=== PATIENT | male | born 1955 | race Caucasian/White ===

== ENCOUNTER 2020-01-26 20:31 | Emergency (ER) | payer MEDICARE, SELFPAY ==
[2020-01-26 20:33] VITALS: BP 157/89; PULSE 87; RESP 20; TEMP 36.7; O2SAT 98; BMI 38.8
[2020-01-26 20:44] VITALS: BP 157/89; PULSE 87; RESP 20; TEMP 36.7; O2SAT 98; BMI 38.9
--- NOTE | 2020-01-26 20:47 | XR_ITS ---
PROCEDURE: XR FOOT LT MIN 3V CLINICAL INDICATION: pain COMPARISON: CR XR ANKLE LT 2V from 01/26/2020 FINDINGS: No fracture or dislocation. No lytic or blastic change. There is normal mineralization. There are mild osteoarthritic changes at the 1st metatarsophalangeal joint Other findings:None. 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
--- NOTE | 2020-01-26 20:47 | XR_ITS ---
PROCEDURE: XR ANKLE LT 2V CLINICAL INDICATION: pain COMPARISON: No exams were available for comparison FINDINGS: Minimal osteoarthritic changes of the ankle joint with minimal spurring of the distal tibia the. The joint space is preserved. Unremarkable appearing talar dome. IMPRESSION: Minimal osteoarthritic change Dictated by: Sameer Farmer MD 01/27/2020 05:28 Sameer Farmer MD in [place] 01/27/2020 05:28
--- NOTE | 2020-01-26 21:15 | HMH.EDUTC ---
[facility] [place] Clinical Impression: Left ankle sprain Qualifiers: Encounter type: initial encounter Involved ligament of ankle: other ligament Qualified Code(s): S93.492A - Sprain of other ligament of left ankle, initial encounter Disposition: Home, Self-Care Condition on Discharge: Good Instructions: How to Use Crutches, DI for Ankle Sprain, How To Perform RICE (Rest, Ice, Compress, Elevate) Additional Instructions: *weight bearing as tolerated use Crutches/walker for ambulation *RICE, Rest the extremity, Ice 15-20 minutes 3-4 times daily, Compress- wear the roberto wrap as discussed as much as possible to help reduce swelling and pain, Elevate the extremity when at rest *Roberto wrap is for support and help control swelling, use it except in the shower. Be sure that is not to tight but not to loose either *Elevate when resting *Ibuprofen every 6-8 hours as needed for pain an inflammation. If need something more can take Tylenol in between doses of Ibuprofen to help Return if needed Straight to ER if any life threatening symptoms Follow up with Family Doctor if no improvement or any worsening of symptoms and for further evaluation and testing Follow up with Dr Loera if no improvement or any worsening of symptoms Call back to the [facility] tomorrow morning for the official reading of your xray Prescriptions: Walker [Walker, Standard] 1 each MISCELLANE DIRECTED #1 each Prescription Printed Referrals: Shaheen Rangel MD [Primary Care Provider] - As needed Delma Loera DPM [Staff Physician] - As needed (Call office for appointment) Time of Disposition: 21:49 Medical Decision Making - Daniel Inquiry Pt receiving controlled substance: No Daniel was queried for this patient: No Vital Signs: 01/26/20 20:33 01/26/20 20:44 Temperature 98.1 F 98.1 F Temperature Source Oral Oral Pulse Rate [Right Radial] 87 87 Respiratory Rate 20 20 Blood Pressure [Right Arm] 157/89 H 157/89 H Blood Pressure Mean [Right Arm] 111 111 Blood Pressure Source [Right Arm] Automatic Cuff Automatic Cuff Blood Pressure Position [Right Arm] Sitting Sitting 02 Sat by Pulse Oximetry 98 98 Oxygen Delivery Method Room Air Room Air - Lab Data Lab results reviewed: Yes: I reviewed the patient's lab results. Lab Results 01/26/20 21:08: Uric Acid 1.9 L Orders (Tests/Meds): ORDERS Category Date Time Status Foot XR left minimum 3 views [XR foot LT min 3V] Stat Exams 01/26/20 20:47 Taken XR ankle LT 2V Stat Exams 01/26/20 20:47 Taken - Radiology Data #1 Image(s): Foot/Toes Image Reviewed: Yes I reviewed the patient's radiology image Preliminary Findings: No Fracture Seen #2 Image(s): Ankle Image Reviewed: Yes I reviewed the patient's radiology image Preliminary Findings: No Fracture Seen [facility] [place] HPI - General Stated complaint: L foot swollen,pain Time Seen by Provider: 01/26/20 21:15 Mode of Arrival: Wheelchair Source of Information: Patient Limitations: No Limitations Description of Symptoms (Recalled from Triage Doc. by RN): Pt reports pain in left foot starting yesterday morning. He rates it an 8 out of 10 and decribes it as throbbing. No obvious deformity and pt denies injury stating he woke up and it was hurting . Pt is agreeable to be see in [facility]. HEENT Symptoms (Recalled from RN notes): No Resp Symptoms (Recalled from RN notes): No Skin Symptoms (Recalled from RN notes): No MS Symptoms (Recalled from RN notes): Yes Functional Status (Recalled from RN notes): wnl - History of Present Illness Provider Complaint: Patient states that he started yesterday and has continued to get worse States that he woke up today was having pain when he would walk and was swollen when he walks pain will shoot across the top of his foot into his ankle area and thinks he may have twisted it this evening it was hurting worse so he came in to get it checked - Related Data Previous Rx's Medication Instructions Recorded Albuterol Sulfat
[2020-01-26 21:25] LABS: Uric Acid 1.9 mg/dl (3.5-8.5)
[2020-01-26 21:55] VITALS: BP 157/89; PULSE 87; RESP 20; TEMP 36.7; O2SAT 98
== END 2020-01-26 21:56 | disposition home or self-care (01) ==
LOC: ER 20:41 → UTC 20:42
PROVIDERS: Emergency Provider Nurse Practitioner; PCP Emergency Medicine
DX: S93.492A Sprain of other ligament of left ankle, initial encounter (principal); F17.210 Nicotine dependence, cigarettes, uncomplicated
CPT/HCPCS: G0463; 73600; 73630; 84550; 99202

== ENCOUNTER 2020-03-13 19:54 | Emergency (ER) | payer MEDICARE, SELFPAY ==
[2020-03-13 20:00] VITALS: BP 154/80; PULSE 75; RESP 21; TEMP 36.7; O2SAT 99; BMI 29.5
[2020-03-13 20:29] VITALS: BP 154/80; PULSE 75; RESP 19; TEMP 36.8; O2SAT 99; BMI 28.7
[2020-03-13 20:32] VITALS: BP 154/80; PULSE 75; RESP 19; TEMP 36.8; O2SAT 99; BMI 28.7
[2020-03-13 20:38] VITALS: BP 154/80; PULSE 75; RESP 19; TEMP 36.8; O2SAT 99
--- NOTE | 2020-03-13 20:53 | HMH.EDUTC ---
[facility] [place] Disposition Clinical Impression: Cellulitis Qualifiers: Site of cellulitis: extremity Site of cellulitis of extremity: lower extremity Laterality: left Qualified Code(s): L03.116 - Cellulitis of left lower limb Disposition: Home, Self-Care Condition on Discharge: Good Instructions: How to Choose and Use a Walker, DI for Foot Pain Additional Instructions: *Start antibiotic(s) immediately and be sure to take as ordered for the FULL length of time although you may be feeling better or start to see improvement in the next 24-48 hours *Monitor closely. Outlined redness so that you can monitor easier. Follow up immediately for new or worsening symptoms including but not limited to redness, swelling, streaking from site fever or chills. *Warm compress 15 minutes 3-4 times day Watch for worsening of redness and follow up immediately if no improvement *Monitor Temp. Tylenol every 4 hours as needed and ibuprofen every 6 hours as needed (as long as your primary care doctor has told you that it is ok to take both. For fever, aches, pain. ER if no less that 101 despite Tylenol and ibuprofen Follow up with your family doctor/primary care physician in the next 48-72 hours if no improvement Call tomorrow and make appointment Follow up with Dr Loera in [facility]ry [facility] for further evaluation and treatment Return if needed STAY OFF FOOT, elevate when at rest Your uric acid level was low make sure that you follow up with your family doctor for complete blood work and further treatment Prescriptions: clindamycin HCL [Clindamycin HCl] 300 mg PO TID 7 Days #21 cap Transmission Status: Pending to [id number] Walker [Walker, Standard] 1 each MISCELLANE DIRECTED #1 each Prescription Printed Referrals: Azael Stevenson MD [Primary Care Provider] - As needed Delma Loera DPM [Staff Physician] - Time of Disposition: 21:57 Medical Decision Making - Daniel Inquiry Pt receiving controlled substance: No Daniel was queried for this patient: No Vital Signs: 03/13/20 20:00 03/13/20 20:29 03/13/20 20:32 Temperature 98.1 F 98.2 F 98.2 F Temperature Source Oral Oral Oral Pulse Rate Pulse Rate [Right Brachial] 75 75 75 Respiratory Rate 21 19 19 Blood Pressure Blood Pressure [Right Arm] 154/80 H 154/80 H 154/80 H Blood Pressure Mean [Right Arm] 104 104 104 Blood Pressure Source [Right Arm] Automatic Cuff Manual Cuff/ Doppler Automatic Cuff Blood Pressure Position [Right Arm] Sitting Sitting Sitting 02 Sat by Pulse Oximetry 99 99 99 Oxygen Delivery Method Room Air Room Air 03/13/20 20:38 Temperature 98.2 F Temperature Source Pulse Rate 75 Pulse Rate [Right Brachial] Respiratory Rate 19 Blood Pressure 154/80 H Blood Pressure [Right Arm] Blood Pressure Mean [Right Arm] Blood Pressure Source [Right Arm] Blood Pressure Position [Right Arm] 02 Sat by Pulse Oximetry Oxygen Delivery Method - Lab Data Lab Results 03/13/20 21:10: Uric Acid 2.2 L Medical Decision Narrative: Patient denies new injury States that he was given prescription for walker and has been unable to walk on crutches but threw his prescription for his walker away so he has still been walking on it and still has not followed up with his PCP or Dr Loera as was advised State that now he thinks it may be infected Foot soaked and cleaned with hibacleanse open lesions noted however noted that toenail on left great toe appears like nail is cracked and patient reports broke nail about a month and a half ago Denies known injury reports history of diabetes. [facility] [place] HPI - General Stated complaint: kNOT ON LEFT FOOT Time Seen by Provider: 03/13/20 20:53 Mode of Arrival: Ambulatory Source of Information: Patient Limitations: No Limitations Description of Symptoms (Recalled from Triage Doc. by RN): Knot on foot. through out his prescription for his walker HEENT Symptoms (Recalled from RN notes): No Resp Symptoms (Recalled from RN notes): No Sk
[2020-03-13 21:49] LABS: Uric Acid 2.2 mg/dl (3.5-8.5)
== END 2020-03-13 20:55 | disposition home or self-care (01) ==
PROVIDERS: Emergency Provider Nurse Practitioner; PCP Family Medicine
DX: L03.116 Cellulitis of left lower limb (principal)
CPT/HCPCS: G0463; 84550; 99201

== ENCOUNTER 2020-09-04 16:34 | Emergency (ER) | payer MEDICARE, SELFPAY ==
[2020-09-04 16:35] VITALS: BP 157/73; PULSE 87; RESP 16; TEMP 36.6; O2SAT 98; BMI 31.3
--- NOTE | 2020-09-04 16:57 | HMH.EDGENADL ---
ED Disposition Clinical Impression: Otitis externa Qualifiers: Otitis externa type: unspecified type Chronicity: acute Laterality: left Qualified Code(s): H60.502 - Unspecified acute noninfective otitis externa, left ear Disposition: Home, Self-Care Condition on Discharge: Fair Instructions: DI for Otitis Externa Additional Instructions: You have been evaluated for ear infection, diagnosed with otitis externa. Use Cipro drops and take Cipro oral tablets. Follow-up with your primary care doctor for symptom recheck in the next 2 to 3 days. Return to the emergency department at once if you have any new or worsening symptoms, fevers, chills, nausea, vomiting, headache, neck pain. Prescriptions: Ciprofloxacin HCl [Ciprofloxacin 250mg Tab] 500 mg PO BID 7 Days #28 tab Transmission Status: Received by [facility] Ciprofloxacin HCl 3 drp OP BID 7 Days #10 ml Transmission Status: Received by [id number] Referrals: Azael Stevenson MD [Primary Care Provider] - Time of Disposition: 17:02 - Critical Care Critical Care Time: No Attestation: On 09/04/20, the high probability of a clinically significant, sudden or life threatening deterioration of the following system(s) required my full and direct attention, intervention and personal management. The time I documented below is in addition to time spent performing reported procedures but includes the following listed in this critical care notation. Medical Decision Making - Medical Records Medical records reviewed: Yes: I reviewed the patient's medical records. - Daniel Inquiry Pt receiving controlled substance: No Vital Signs: 09/04/20 16:35 09/04/20 17:43 Temperature 98 F 98 F Temperature Source Oral Pulse Rate 86 Pulse Rate [Radial] 87 Respiratory Rate 16 18 Blood Pressure 143/64 H Blood Pressure [Right Radial Artery] 157/73 H Blood Pressure Mean [Right Radial Artery] 101 Blood Pressure Position Sitting Blood Pressure Position [Right Radial Artery] Sitting 02 Sat by Pulse Oximetry 98 Oxygen Delivery Method Room Air Room Air Medical Decision Narrative: In summary this is a 65-year-old male with history of diabetes presenting to the emergency department with left ear pain. Patient clinically stable on arrival. Vital signs within normal limits. Physical exam is most concerning for otitis externa. Doubt otitis media. No mastoid tenderness to suggest mastoiditis. No headache or neck pain to suggest meningitis. Patient given ciprofloxacin drops. He also is diabetic. Given prescription for oral ciprofloxacin. Recommended to take as prescribed and follow-up with his primary care physician. He is agreeable with plan. Stable for discharge. General Adult HPI - General Stated complaint: Left ear is infected Time Seen by Provider: 09/04/20 16:47 Mode of Arrival: Ambulatory Source of Information: Patient Limitations: No Limitations - History of Present Illness HPI narrative: 65-year-old male presenting to the emergency department left ear pain. He has had pain for at least 1 week. Initially was dull, throbbing. Now it is more sharp, burning. He has tried cleaning out his ears. Thought he had cerumen impacted. Over the last few days he has noticed worsening discomfort. Radiates inward toward his ear and into his jaw. No headache, neck pain, pain with neck motion. No recent antibiotic use. No recent swimming or submersion activities. He is a diabetic. Controlled medication. - Related Data Previous Rx's Medication Instructions Recorded Albuterol Sulfate [Albuterol HFA 1 - 2 puffs IH Q4-6H PRN #1 inh 04/26/19 Inhaler] Azithromycin [Z-Ladarius 250mg Tab*] 250 mg PO UD DOSE PK #6 tab 04/26/19 Fluticasone Propionate [Flonase 1 spr NS DAILY #1 bottle 04/26/19 50mcg nasal spray 16gm] Walker [Walker, Standard] 1 each MISCELLANE DIRECTED #1 01/26/20 each Walker [Walker, Standard] 1 each MISCELLANE DIRECTED #1 03/13
[2020-09-04 17:43] VITALS: BP 143/64; PULSE 86; RESP 18; TEMP 36.6; O2SAT 96
== END 2020-09-04 17:44 | disposition home or self-care (01) ==
PROVIDERS: Emergency Provider Emergency Medicine; PCP Family Medicine
DX: H60.502 Unspecified acute noninfective otitis externa, left ear (principal); E11.9 Type 2 diabetes mellitus without complications; Z88.0 Allergy status to penicillin
CPT/HCPCS: 99281

== ENCOUNTER 2023-03-13 15:30 | Emergency (ER) | payer MEDICARE, SELFPAY ==
[2023-03-13 16:10] VITALS: BP 140/77; PULSE 89; RESP 18; TEMP 37.1; O2SAT 97; BMI 43.3
--- NOTE | 2023-03-13 16:17 | EXP.UTC ---
Discharge Plan Disposition Patient Disposition: Home, Self-Care Condition: Fair Prescriptions Prescriptions: No Action (DME) Walker [Walker, Standard] 1 EACH Each 1 each MISCELLANE DIRECTED Qty: 1 0RF albuterol sulfate 18 GM HFA aerosol inhaler 1 - 2 puffs IH Q4-6H PRN (Reason: Shortness Of Breath Or Wheezing) Qty: 1 0RF fluticasone propionate 120 SPR/BOT bottle 1 spr NS DAILY Qty: 1 0RF (DME) Walker [Walker, Standard] 1 EACH Each 1 each MISCELLANE DIRECTED Qty: 1 0RF Referrals Follow up/Referrals: Elia Cho DO [Primary Care Provider] - See instructions Clinical Impressions Clinical Impression: Closed head injury, Head pain Discharge ED Provider: Stefani Macedo [facility] General Stated complaint: AO12/05 dizzy, VALENTINE Time Seen by Provider: 03/13/23 16:16 History of Present Illness Provider Complaint: He states that 2 days ago he fell here at the hospital and hit the back of his head on the floor. He states that he fell because he is always unsteady on his feet and he falls because of it at times. He denies that he had any loss of consciousness after the fall, but he did have a period of dizziness and disorientation. He did not tell anyone when he fell. But, since then, he has had dizziness and headache. Related Data Previous Rx's Medication Instructions Recorded albuterol sulfate 90 mcg/actuation 1 - 2 puffs IH Q4-6H PRN Shortness 04/26/19 aerosol inhaler Of Breath Or Wheezing #1 inh fluticasone propionate 50 1 spr NS DAILY ##1 04/26/19 mcg/actuation nasal spray,suspension Walker [Walker, Standard] #1 ea 01/26/20 Walker [Walker, Standard] #1 ea 03/13/20 Allergies Allergy/AdvReac Type Severity Reaction Status Date / Time Penicillins [PENICILLINS] Allergy Unknown Verified 03/13/23 16:32 [facility] Disclaimer: The information contained in this section may have been updated after the patient was seen, as this information can be updated by other users. Social History Smoking Status: Never smoker second hand exposure: No alcohol intake: never current occupational status: other Travel in the last 8 weeks: None ROS Obtained: Yes All systems reviewed & no additional complaints except as documented Constitutional Constitutional: Denies chills, Denies fever(s) and Reports headache(s) Eyes Eyes: Denies eye discharge and Denies loss of vision ENT Ears, Nose, Mouth, and Throat: Reports disequilibrium, Reports dizziness, Denies otalgia, Reports headache(s), Denies neck pain and Denies sore throat Cardiovascular Cardiovascular: Denies chest pain Respiratory Respiratory: Denies shortness of breath, Denies chest congestion, Denies cough, Denies stridor and Denies wheezing Gastrointestinal Gastrointestingal: Denies nausea or vomiting Musculoskeletal Musculoskeletal: Denies neck pain Integumentary/Breasts Skin/Breast: Denies rash Neurologic Neurologic: Denies confusion, Reports disequilibrium, Reports dizziness, Reports headache(s), Denies loss of vision and Denies paresthesias Allergic/Immunologic Allergic/Immunologic: Denies wheezing Physical Exam General General appearance: alert and in no apparent distress Head Head exam: atraumatic, normocephalic and normal inspection Eye Eye exam: Present normal appearance, PERRL and EOMI ENT ENT exam: Present normal exam, normal oropharynx, mucous membranes moist, TM's normal bilaterally and normal external ear exam Neck Neck exam: Present normal inspection, full ROM and trachea midline; Absent meningismus or lymphadenopathy Chest Chest inspection: Present normal inspection and symmetric chest wall rise; Absent tenderness Respiratory Respiratory exam: Present normal lung sounds bilaterally; Absent respiratory distress Cardiovascular Cardiovascular exam: Present regular rate and normal rhythm; Absent JVD Abdominal Exam Abdominal exam: Present soft and normal bowel sounds; Abse
[2023-03-13 16:39] VITALS: BP 170/89; PULSE 87; RESP 18; TEMP 36.5; O2SAT 95; BMI 43.3
--- NOTE | 2023-03-13 16:56 | CT_ITS ---
PROCEDURE INFORMATION: Exam: CT Head Without Contrast Exam date and time: 03/13/2023 5:06 PM Age: 67 years old Clinical indication: Injury or trauma; Fall; Blunt trauma (contusions or hematomas); Consciousness not specified; Additional info: Fall head injury TECHNIQUE: Imaging protocol: Computed tomography of the head without contrast. Radiation optimization: All CT scans at this facility use at least one of these dose optimization techniques: automated exposure control; mA and/or kV adjustment per patient size (includes targeted exams where dose is matched to clinical indication); or iterative reconstruction. REPORTING DATA: Count of CT and Cardiac NM exams in prior 12 months: This patient has received 0 known CTs and 0 known cardiac nuclear medicine studies in the 12 months prior to the current study. COMPARISON: No relevant prior studies available. FINDINGS: Brain: No intracranial hemorrhage. Generalized atrophic changes of the ventricles and subarachnoid spaces. Chronic small-vessel ischemic changes noted. No mass, mass effect or midline shift. Intracranial atherosclerotic changes are noted. Cerebral ventricles: See Brain finding. Paranasal sinuses: Visualized sinuses are unremarkable. No fluid levels. Mastoid air cells: Visualized mastoid air cells are well aerated. Bones/joints: Unremarkable. No acute fracture. Soft tissues: Unremarkable. IMPRESSION: No acute intracranial abnormality. Chronic changes as above.
--- NOTE | 2023-03-13 16:57 | HMH.EDGENADL ---
Discharge Plan Disposition Patient Disposition: Home, Self-Care Condition: Fair Prescriptions Prescriptions: No Action (DME) Walker [Walker, Standard] 1 EACH Each 1 each MISCELLANE DIRECTED Qty: 1 0RF albuterol sulfate 18 GM HFA aerosol inhaler 1 - 2 puffs IH Q4-6H PRN (Reason: Shortness Of Breath Or Wheezing) Qty: 1 0RF fluticasone propionate 120 SPR/BOT bottle 1 spr NS DAILY Qty: 1 0RF (DME) Walker [Walker, Standard] 1 EACH Each 1 each MISCELLANE DIRECTED Qty: 1 0RF Referrals Follow up/Referrals: Elia Cho DO [Primary Care Provider] - See instructions Activity Restrictions/Add. Instructions Additional Instructions/Restrictions: No evidence of an intracranial hemorrhage or other abnormality on your CT scan today. You likely have had a mild concussion and you need to expect some headaches nausea difficulty concentrating possibly some amnesia for the neck several days and this could last several weeks to months as well. Follow-up with primary care doctor as needed Clinical Impressions Clinical Impression: Concussion Discharge ED Provider: Stefani Macedo General Adult HPI General Chief complaint: Fall Stated complaint: AO12/05 dizzy, VALENTINE Time Seen by Provider: 03/13/23 16:16 Mode of Arrival: Wheelchair Source of Information: Patient and Medical Record Limitations: No Limitations Description of Symptoms (Recalled from ER Triage Doc. by RN): Pt c/o constant headache since he fell 2 days ago. States he was exiting from here and tripped and fell inbetween the glass doors from the ER lobby. He did not seek medical help from this fall. States he striking the R side of his head on the floor. Skin intact, tenderness noted to head. No vision changes. He does report feeling dizzy when ambulating and has been nauseated. Denies any LOC, vomiting, or Ataxia. History of Present Illness HPI narrative: Patient is a 67-year-old male presenting today with a headache after a fall 2 days ago. It was a mechanical fall denies any neurologic symptoms including numbness weakness tingling changes in mental status etc. Not on any anticoagulation is actually not on any medicines at all recently lost his primary care doctor but has an appointment made with a new one. Went to the urgent treatment clinic no medications were administered they are unable to perform a CT scan that sent him to the emergency department. Patient denies any neck pain chest abdomen pelvis or other long bone pain. Has only been taking aspirin at home. Related Data Previous Rx's Medication Instructions Recorded albuterol sulfate 90 mcg/actuation 1 - 2 puffs IH Q4-6H PRN Shortness 04/26/19 aerosol inhaler Of Breath Or Wheezing #1 inh fluticasone propionate 50 1 spr NS DAILY ##1 04/26/19 mcg/actuation nasal spray,suspension Walker [Walker, Standard] #1 ea 01/26/20 Walker [Walker, Standard] #1 ea 03/13/20 Allergies Allergy/AdvReac Type Severity Reaction Status Date / Time Penicillins [PENICILLINS] Allergy Unknown Verified 03/13/23 16:32 [facility] Disclaimer: The information contained in this section may have been updated after the patient was seen, as this information can be updated by other users. Social History Smoking Status: Current every day smoker tobacco type: cigarettes packs per day: 1 second hand exposure: No alcohol intake: never current occupational status: other Travel in the last 8 weeks: None ROS Obtained: Yes All systems reviewed & no additional complaints except as documented Physical Exam General General appearance: alert and in no apparent distress Head Head exam: atraumatic and normocephalic (No Enciso sign raccoon eyes or depressible fracture) Neck Neck exam: Absent tenderness Respiratory Respiratory exam: Present normal lung sounds bilaterally; Absent respiratory distress or wheezes Cardiovascular Cardiovascular exam: Present regular rat
[2023-03-13 17:30] VITALS: BP 154/78; PULSE 78; RESP 20; TEMP 36.6; O2SAT 96
== END 2023-03-13 17:33 | disposition home or self-care (01) ==
LOC: UTC 15:39 → ER 16:35
PROVIDERS: Emergency Provider Student in an Organized Health Care Education/Training Program; PCP Internal Medicine
DX: W19.XXXA Unspecified fall, initial encounter; R42 Dizziness and giddiness; S06.0X0A Concussion without loss of consciousness, initial encounter; F17.210 Nicotine dependence, cigarettes, uncomplicated
CPT/HCPCS: 70450; 99284

== ENCOUNTER 2023-04-10 22:53 | Outpatient (CLI) | payer MEDICARE, SELFPAY ==
[2023-04-10 16:14] LABS: Basophils # 0.1 K/mm3 (0-0.2); Basophils % 0.9 % (0.1-2.0); Eosinophils # 0.3 K/mm3 (0.0-0.4); Eosinophils % 3.6 % (0.1-12.0); Hematocrit 47.5 % (42.0-52.0); Hemoglobin 16.1 g/dL (14.1-18.0); Lymphocytes # 1.6 K/mm3 (0.7-4.5); Lymphocytes % 23.2 % (10-50); Mean Corpuscular HGB Conc 33.9 g/dL (31.8-35.4); Mean Corpuscular Hemoglobin 31.1 pg (27.0-31.2); Mean Corpuscular Volume 91.8 fl (80-94); Mean Platelet Volume 8.5 fl (7.4-10.4); Monocytes # 0.5 K/mm3 (0.1-1.0); Monocytes % 7.5 % (1.7-9.3); Neutrophils # 4.6 K/mm3 (1.8-7.8); Neutrophils % 64.8 % (37.0-80.0); Platelet Count 192 K/mm3 (142-424); Red Blood Count 5.18 M/mm3 (4.60-6.20); Red Cell Distribution Width 14.4 % (11.5-17.5); White Blood Count 7.1 K/mm3 (4.8-10.8)
[2023-04-10 16:36] LABS: Alanine Aminotransferase 21 U/L (12-78); Albumin Level 4.4 g/dl (3.5-5.0); Albumin/Globulin Ratio 1.4 (1.1-1.8); Alkaline Phosphatase 224 U/L (38-126); Anion Gap 12.2 mEq/L (5-15); Aspartate Amino Transferase 25 U/L (17-59); Bilirubin,Total 0.5 mg/dl (0.2-1.3); Blood Urea Nitrogen 14 mg/dl (9-20); Carbon Dioxide 27 mmol/L (22.0-30.0); Chloride 102 mmol/L (98-107); Chol/HDL Ratio 7.9 (1-3.5); Cholesterol 269 mg/dl (140-200); Estimated Glomerular Filt Rate 97 ml/min (>60); GFR (African American) 117 ML/MIN (>60); Globulin 3.1 g/dL (1.3-3.2); Glucose 287 mg/dl (74-100); HDL Cholesterol 34 mg/dl (40-60); Potassium 4.2 mmoL/L (3.5-5.1); Sodium 137 mmol/L (136-145); Total Protein,Serum 7.5 g/dl (6.3-8.2)
[2023-04-10 16:42] LABS: Triglycerides 448 mg/dl (30-150)
[2023-04-10 16:47] LABS: Direct LDL Cholesterol 113.58 mg/dL (100-129)
[2023-04-10 16:52] LABS: 25-OH Vitamin D, Total 13.9 ng/mL (30-100)
[2023-04-10 16:57] LABS: Free T4 (Free Thyroxine) 0.96 ng/dl (0.78-2.19)
[2023-04-10 17:08] LABS: Thyroid Stimulating Hormone 1.77 uIU/mL (0.465-4.68)
== END 2023-04-10 23:59 ==
LOC: LAB.DROPOF 22:54
PROVIDERS: PCP Internal Medicine; Visit Provider Internal Medicine
DX: E11.9 Type 2 diabetes mellitus without complications (principal); I10 Essential (primary) hypertension; E55.9 Vitamin D deficiency, unspecified; J44.9 Chronic obstructive pulmonary disease, unspecified; Z72.0 Tobacco use; Z79.84 Long term (current) use of oral hypoglycemic drugs; Z79.899 Other long term (current) drug therapy
CPT/HCPCS: 80053; 80061; 82306; 84439; 84443; 85025

== ENCOUNTER 2023-04-18 10:34 | Outpatient (CLI) | payer MEDICARE, SELFPAY ==
--- NOTE | 2023-04-18 10:35 | CT_ITS ---
FINAL REPORT TECHNIQUE: Axial CT images of the chest were obtained without contrast. Low-dose protocol was utilized. This study was performed with techniques to keep radiation doses as low as reasonably achievable (ALARA). Individualized dose reduction techniques using automated exposure control or adjustment of mA and/or kV according to the patient's size were employed. CLINICAL HISTORY: lung cancer screening CURRENT SMOKER 1.5PPD X53 YEARS COMPARISON: None FINDINGS: CT CHEST WITHOUT, LOW DOSE SCREENING CT Di Vol: 2.90 mGy DLP: 105.51 mGy*cm There are multiple mildly enlarged bilateral axillary nodes which are nonspecific and could be reactive or neoplastic. The heart size is normal. There are mild coronary artery calcifications. There is no pleural or pericardial effusion. There is mild emphysema and mild scarring. The lung windows show a 5 mm nodule in the right upper lobe best seen on image 19. In the posterior right upper lobe is a 6 mm nodule seen on image 27. Limited images of the upper abdomen demonstrate no acute findings. IMPRESSION: 6 mm or less right upper lobe nodules. LR Category 3: 6 month follow-up low-dose chest CT is recommended. Reviewed, Interpreted and Dictated by Lee Kuo III, MD Transcribed by Shelia Diaz Authenticated and [facility]
== END 2023-04-18 23:59 ==
LOC: RAD 10:35
PROVIDERS: PCP Internal Medicine; Visit Provider Internal Medicine
DX: Z12.2 Encounter for screening for malignant neoplasm of respiratory organs (principal); F17.210 Nicotine dependence, cigarettes, uncomplicated
CPT/HCPCS: 71271

== ENCOUNTER 2023-07-26 15:18 | Emergency (ER) | payer MEDICARE, SELFPAY ==
[2023-07-26 15:20] VITALS: BP 172/84; PULSE 87; RESP 18; TEMP 36.4; O2SAT 97; BMI 26.6
[2023-07-26 15:30] VITALS: BP 156/85; PULSE 83; RESP 18; O2SAT 98
--- NOTE | 2023-07-26 15:33 | PC.NURSE ---
DR GARCIA AT BEDSIDE
--- NOTE | 2023-07-26 15:41 | ED_ITS ---
Discharge Plan Disposition Patient Disposition: Home, Self-Care Prescriptions Prescriptions: New efinaconazole 10 % solution with applicator 1 applic topical DAILY 336 Days Qty: 8 4RF No Action metformin 500 mg tablet 500 mg PO BID Qty: 60 2RF rosuvastatin 10 mg tablet 10 mg PO DAILY Qty: 30 2RF cholecalciferol (vitamin D3) 1,250 mcg (50,000 unit) capsule 1,250 mcg PO WEEKLY Qty: 10 0RF Referrals Follow up/Referrals: Provider,Referral, [Referring] - See instructions Delma Loera DPM [Staff Physician] - See instructions Activity Restrictions/Add. Instructions Additional Instructions/Restrictions: Follow-up with Dr. Loera. Apply solution to your toes once daily as prescribed. See your family doctor for further evaluation and follow-up. Clinical Impressions Clinical Impression: Onychomycosis Instructions Patient Instructions: DI for Skin Abscess Discharge ED Provider: Luis Carlos Flood General Adult HPI General Chief complaint: Skin/Abscess/Foreign Body Stated complaint: right foot pain Time Seen by Provider: 07/26/23 15:22 Mode of Arrival: Ambulatory Source of Information: Patient Limitations: No Limitations Description of Symptoms (Recalled from ER Triage Doc. by RN): PT C/O PAIN UNDER RIGHT GREAT TOE FOR SEVERAL DAYS. REPORTS NO INJURY. NO OPEN AREA. RAISED BLISTER AREA NOTED History of Present Illness HPI narrative: He has his hypertension, hyperlipidemia, diabetes, COPD still smoking presenting with bilateral great toe toenail pain. This has been going on for a few weeks, got worse on his right great toe a few days ago. He states that he does not know what happened, but a crack. No redness, drainage, trauma that he knows of. Otherwise no complaints. Please note that above description of symptoms, in this electronic medical record under categorization of recalled from ER triage doctor by RN are reflective of an initial nursing assessment, however, is not reflective of my full history and physical exam that was personally taken and clarified. Consequentially, this preceding description of symptoms, which may include the patient's categorized chief complaint in the EMR, do not reflect my personal clinical impression, and the ultimate description of history of present illness and patient stated complaints should be deferred to this section of the note. Unless stated otherwise or congruent with this section of the note, additional signs, symptoms, or incongruence should be interpreted as inaccurate with my clinical impression. Related Data Previous Rx's Medication Instructions Recorded cholecalciferol (vitamin D3) 1,250 1,250 mcg PO WEEKLY #10 caps 04/15/23 mcg (50,000 unit) capsule metformin 500 mg tablet 500 mg PO BID #60 tabs 04/15/23 rosuvastatin 10 mg tablet 10 mg PO DAILY #30 tabs 04/15/23 efinaconazole 10 % topical 1 applic topical DAILY 48 weeks #8 07/26/23 solution with applicator mL Allergies Allergy/AdvReac Type Severity Reaction Status Date / Time Penicillins [PENICILLINS] Allergy Unknown Verified 04/15/23 10:15 [facility] Disclaimer: The information contained in this section may have been updated after the patient was seen, as this information can be updated by other users. Medical History (Updated 07/26/23 @ 15:47 by Luis Carlos Flood MD) Diabetes mellitus Hypertension COPD (chronic obstructive pulmonary disease) Surgical History (Updated 04/08/23 @ 13:45 by Sharron Lin CMA) History of colonoscopy Hx of cholecystectomy History of appendectomy Social History Smoking Status: Current every day smoker tobacco type: cigarettes packs per day: 1 second hand exposure: No alcohol intake: never current occupational status: other Travel in the last 8 weeks: None ROS Obtained: Yes All systems reviewed & no additional complaints except as documented Physical Exam General General appearance: alert and in no apparent distress Head Head exam: atraumatic and normocephalic Eye Eye exam: Present normal appearance, PERRL and EOMI ENT ENT exam: Present mucous membranes moist Neck Neck exam: Present normal inspection, full ROM and trachea midline Respiratory Respiratory exam: Absent respiratory distress, wheezes, stridor, accessory muscle use or prolonged expiratory phase Cardiovascular Cardiovascular exam: Present normal rhythm Abdominal Exam Abdominal exam: Present soft; Absent distention, tenderness, guarding, rebound or rigidity Extremities Exam Extremities exam: Present other (Onychomycosis of all digits of feet.); Absent edema Neurological Exam Neurological exam: Present alert, oriented X3, CN II-XII intact and normal gait; Absent motor sensory deficit Skin Skin exam: Present warm and dry; Absent diaphoresis or erythema Medical Decision Making Medical Records Medical records reviewed: Yes I reviewed the patient's medical records. Daniel Inquiry Pt receiving controlled substance: No Daniel was queried for this patient: No Vital Signs: 07/26/23 15:20 Temperature 97.5 F L Temperature Source Oral Pulse Rate [Radial] 87 Respiratory Rate 18 Blood Pressure [Right Arm] 172/84 H Blood Pressure Mean [Right Arm] 113 Blood Pressure Source [Right Arm] Automatic Cuff Blood Pressure Position [Right Arm] Sitting 02 Sat by Pulse Oximetry 97 Oxygen Delivery Method Room Air Medical Decision Narrative: 68-year-old male no relevant medical history presenting with onychomycosis. Very well-appearing, no evidence of infection, patient does have a red spot on the bottom of his right great toe, not raised, not open. No evidence of edema, cellulitis, or any other concerns. Patient hemodynamically stable with unconcerning vitals on arrival. Because no life-threatening complaints, vitals, concerns, or complaints, I feel it is very unlikely that patient has any acute complaints necessitating emergency care. Patient be discharged with efinaconazole topical cream. Because patient at baseline without signs or symptoms of clinical decompensation, deemed appropriate for discharge. Results were relayed to patient who voiced understanding and were agreeable to outpatient management and follow up. I discussed my clinical impression with patient and answered all questions. At this time, the evidence for any other entities in the differential is insufficient to warrant any further testing or ED observation. This was explained as well. Advisory was given that persistent or worsening symptoms require further evaluation. I confirmed the understanding of this discussion. Critical Care Critical Care Time Critical Care Time: No
[2023-07-26 15:56] VITALS: BP 156/85; PULSE 84; RESP 20; TEMP 36.9; O2SAT 98
== END 2023-07-26 15:57 | disposition home or self-care (01) ==
PROVIDERS: Emergency Provider Emergency Medicine; PCP Internal Medicine
DX: B35.1 Tinea unguium (principal); I10 Essential (primary) hypertension; E78.5 Hyperlipidemia, unspecified; E11.9 Type 2 diabetes mellitus without complications; F17.210 Nicotine dependence, cigarettes, uncomplicated; J44.9 Chronic obstructive pulmonary disease, unspecified; M79.674 Pain in right toe(s); Z79.84 Long term (current) use of oral hypoglycemic drugs
CPT/HCPCS: 99282; 99283

== ENCOUNTER 2023-08-13 07:45 | Day surgery (SDC) | payer MEDICARE, SELFPAY ==
[2023-08-11 13:32] VITALS: BMI 34.0
[2023-08-13] MEDS: LACTATED RINGERS 1000ML 1,000 ML 25 ML IV (08:28)
[2023-08-13 08:38] VITALS: BP 153/74; PULSE 78; RESP 18; TEMP 36.2; O2SAT 94
[2023-08-13 09:04] LABS: POC Glucose,Bedside 261 (70-110)
--- NOTE | 2023-08-13 09:17 | P.PNANES_ITS ---
[facility] Disclaimer: The information contained in this section may have been updated after the patient was seen, as this information can be updated by other users. Medical History Diabetes mellitus Hypertension COPD (chronic obstructive pulmonary disease) Surgical History History of colonoscopy Hx of cholecystectomy History of appendectomy Family History Other Family history of COPD (chronic obstructive pulmonary disease) Social History Smoking Status: Current every day smoker tobacco type: cigarettes packs per day: 1 second hand exposure: No alcohol intake: never substance use type: denies use current occupational status: other Travel in the last 8 weeks: None [facility] Anesthesia Checklist Patient Identification Patient Identification: Arm Band Structural Data Admitted From: Home Planned Operative Procedure/s: Colonoscopy Consent for Planned Operative Procedure(s) Verified: Yes Verified Documents: Surgical Consent and History and Physical NPO Status Verified Time NPO: 00:00 Additional verifications Anesthesia Reactions: No Airway Assessment Mallampati Score:: Class II C-Spine Mobility Assessed: Yes TMJ Mobility Assessed: Yes Dentition: Edentulous Neurological Assessment Level of Consciousness: Awake, Alert and Appropriate Anesthesia Plan Anesthesia Risk discussed: Yes Anesthesia Plan: Verified ASA Class: III Anesthesia Type: MAC
[2023-08-13 09:58] VITALS: O2SAT 98
[2023-08-13 10:15] VITALS: BP 126/79; PULSE 77; RESP 16; TEMP 36.6; O2SAT 92
--- NOTE | 2023-08-13 10:20 | [facility].SCOPE ---
Procedure: Date: 08/13/23 Patient Date of :: 1955 Procedure Performed:: Colonoscopy Indications:: The patient is a 68-year-old who presents for screening colonoscopy for colorectal cancer Performing Provider:: Jw Torrez MD Referring Provider:: Shaheen Cho DO Sedation:: See RN records Procedure:: After placing the patient in the left lateral decubitus position, the colonoscopy was gently inserted into the rectum and under direct visualization advanced to the cecum which was identified by transillumination in the right lower quadrant, identification of the ileocecal valve, appendiceal orifice, and cecal strap. Color, texture, mucosa, and anatomy of the colon were carefully examined with the scope. Findings:: The quality of the bowel preparation was fair to poor in the sigmoid colon. Quality of the bowel preparation in the cecum proximally to about the mid transverse colon was fair. The colonoscopy was somewhat difficult secondary to a floppy and redundant colon. There was extensive diverticulosis throughout the entire colon. The remaining colon appeared normal. On retroflexion view internal hemorrhoids were seen. Impression: Extensive diverticulosis Recommendations:: Repeat colonoscopy in 3 years Complications:: None Estimated blood obtained (mL): 0 Colonoscopy Component Colonoscopy Component Was a colonoscopy performed during today's procedure?: Yes Recommended follow up colonoscopy of at least 10 years?: Yes
[2023-08-13 10:25] VITALS: BP 128/68; PULSE 76; RESP 16; O2SAT 93
[2023-08-13 10:35] VITALS: BP 139/89; PULSE 75; RESP 16; O2SAT 95
== END 2023-08-13 10:47 | disposition home or self-care (01) ==
PROVIDERS: PCP Internal Medicine; Visit Provider Internal Medicine
PROC: 0DJD8ZZ Inspection of Lower Intestinal Tract, Via Natural or Artificial Opening Endoscopic (ICD-10-PCS; CPT 45378; principal; 2023-08-13 09:30)
DX: Z12.11 Encounter for screening for malignant neoplasm of colon (principal); K57.30 Diverticulosis of large intestine without perforation or abscess without bleeding; K64.8 Other hemorrhoids; E11.9 Type 2 diabetes mellitus without complications
CPT/HCPCS: G0121; 82962

== ENCOUNTER 2023-11-30 18:37 | Emergency (ER) | payer MEDICARE, SELFPAY ==
[2023-11-30 18:38] VITALS: BP 177/81; PULSE 99; RESP 18; TEMP 36.9; O2SAT 97; BMI 31.7
--- NOTE | 2023-11-30 18:53 | HMH.EDGENADL ---
Discharge Plan Disposition Patient Disposition: Home, Self-Care Condition: Fair Prescriptions Prescriptions: New nystatin 100,000 unit/mL suspension 1 ml PO QID 10 Days Qty: 40 0RF Rx Instructions: swish and swallow No Action metformin 500 mg tablet 500 mg PO BID Qty: 60 2RF rosuvastatin 10 mg tablet 10 mg PO DAILY Qty: 30 2RF cholecalciferol (vitamin D3) 1,250 mcg (50,000 unit) capsule 1,250 mcg PO WEEKLY Qty: 10 0RF peg 3350-electrolytes [GaviLyte-G] 236-22.74-6.74 -5.86 gram recon soln 240 ml PO Q10M Qty: 4000 0RF Rx Instructions: Follow mailed instructions, pharmacy may substitute if needed. Referrals Follow up/Referrals: Elia Cho DO [Primary Care Provider] - See instructions Activity Restrictions/Add. Instructions Additional Instructions/Restrictions: Follow-up with your PCP within 48 hours for recheck of your thrush. Return to ER for any worsening signs or symptoms as needed. Clinical Impressions Clinical Impression: Thrush, oral Print Language Print Language: Tongan Discharge ED Provider: Luis Carlos Flood General Adult HPI <BRUCE Richardson - Last Filed: 11/30/23 22:50> General Chief complaint: Upper Respiratory Infection Stated complaint: sore throat,feet and legs swollen Time Seen by Provider: 11/30/23 18:46 Mode of Arrival: Ambulatory Source of Information: Patient Limitations: No Limitations Description of Symptoms (Recalled from ER Triage Doc. by RN): Patient reports a sore throat and swollen feet for 3 days. History of Present Illness HPI narrative: Patient presents for evaluation of a sore throat that he believes is upper respiratory tract infection. He said this has been going on for 3 days additionally he reports that his bilateral feet hurt without trauma. He denies chest pain fever chills hemoptysis hematochezia melena nausea vomiting diarrhea. Related Data Previous Rx's ?Medication ?Instructions ?Recorded cholecalciferol (vitamin D3) 1,250 1,250 mcg PO WEEKLY #10 caps 04/15/23 mcg (50,000 unit) capsule metformin 500 mg tablet 500 mg PO BID #60 tabs 04/15/23 rosuvastatin 10 mg tablet 10 mg PO DAILY #30 tabs 04/15/23 peg 3350-electrolytes 236 240 ml PO Q10M bowel prep #4,000 mL 07/28/23 gram-22.74 gram-6.74 gram-5.86 gram solution (GaviLyte-G) nystatin 100,000 unit/mL oral 1 ml PO QID 10 days #40 mL 11/30/23 suspension Allergies Allergy/AdvReac Type Severity Reaction Status Date / Time Penicillins [PENICILLINS] Allergy Unknown Verified 08/13/23 08:31 [facility] <BRUCE Richardson - Last Filed: 11/30/23 22:50> [facility] Disclaimer: The information contained in this section may have been updated after the patient was seen, as this information can be updated by other users. Medical History (Updated 11/30/23 @ 21:33 by BRUCE Richardson) Diabetes mellitus Hypertension COPD (chronic obstructive pulmonary disease) Surgical History History of colonoscopy Hx of cholecystectomy History of appendectomy Family History Other Family history of COPD (chronic obstructive pulmonary disease) Social History (Updated 08/13/23 @ 09:18 by Pedro Vicente CRNA) Smoking Status: Current every day smoker tobacco type: cigarettes packs per day: 1 second hand exposure: No alcohol intake: never substance use type: denies use current occupational status: other Travel in the last 8 weeks: None <BRUCE Richardson - Last Filed: 11/30/23 22:50> ROS Obtained: Yes Systems reviewed as appropriate & no additional complaints except as documented Physical Exam <BRUCE Richardson - Last Filed: 11/30/23 22:50> General General appearance: alert and in no apparent distress ENT ENT exam: Present other (Patient has significant thrush in the posterior pharynx with significant erythema and edema but airway is patent.) Neck Neck exam: Present normal inspection and full ROM; Absent lymphadenopathy Chest Chest inspection: Present normal inspection and symmetric chest wall rise Respiratory Respiratory exam: Present normal lung sounds bilaterally Cardiovascular Cardiovascular exam: Present regular rate and normal rhythm Extremities Exam Extremities exam: Present normal inspection and full ROM; Absent tenderness Neurological Exam Neurological exam: Present alert, oriented X3 and CN II-XII intact Medical Decision Making <BRUCE Richardson - Last Filed: 11/30/23 22:50> Medical Records Medical records reviewed: Yes I reviewed the patient's medical records. Daniel Inquiry Pt receiving controlled substance: No Vital Signs: 11/30/23 18:38 11/30/23 19:00 11/30/23 20:34 Temperature 98.4 F 97.9 F Temperature Source Oral Oral Pulse Rate 85 70 Pulse Rate [Radial] 99 H Respiratory Rate 18 16 Blood Pressure 164/88 H 137/78 Blood Pressure [Right Arm] 177/81 H Blood Pressure Mean 113 Blood Pressure Mean [Right Arm] 113 Blood Pressure Source Automatic Cuff Blood Pressure Source [Right Arm] Automatic Cuff Blood Pressure Position Sitting Blood Pressure Position [Right Arm] Sitting 02 Sat by Pulse Oximetry 97 98 Oxygen Delivery Method Room Air Room Air Room Air Lab Data Lab results reviewed: Yes I reviewed the patient's lab results. Lab Results 11/30/23 18:48: SARS-CoV-2 (PCR) Not detected, Influenza A Untype (PCR) Not detected, Influenza Type B (PCR) Not detected 11/30/23 19:04: VBG pH 7.41, VBG pCO2 40.5, VBG pO2 55.6 H, VBG HCO3 25.0, VBG Total CO2 26.3, VBG O2 Saturation 90.4 H, VBG Base Excess 0.4, VBG Lactic Acid 1.3 11/30/23 19:16: WBC 9.9, RBC 4.46 L, Hgb 13.5 L, Hct 41.1 L, MCV 92.2, MCH 30.4, MCHC 32.9, RDW 14.3, Plt Count 183, MPV 7.6, Neut % (Auto) 77.6, Lymph % (Auto) 13.9, [place] % (Auto) 5.5, Eos % (Auto) 2.3, Baso % (Auto) 0.6, Neut # (Auto) 7.7, Lymph # (Auto) 1.4, [place] # (Auto) 0.6, Eos # (Auto) 0.2, Baso # (Auto) 0.1, Sodium 136, Potassium 4.0, Chloride 108 H, Carbon Dioxide 20 L, Anion Gap 12.0, BUN 9, Creatinine 0.60 L, Estimated Creat Clear 100, Estimated GFR 135, Est GFR ( Amer) 163, Glucose 231 H, Hemoglobin A1c 10.5 H, Calcium 8.5, Magnesium 1.7, Total Bilirubin 1.1, AST 41, ALT 20, Alkaline Phosphatase 182 H, NT-Pro-B Natriuret Pep 172 H, Total Protein 7.2, Albumin 4.1, Globulin 3.1, Albumin/Globulin Ratio 1.3 11/30/23 19:55: Urine Color Dark yellow, Urine Appearance Slightly cloudy, Urine pH 6.0, Ur Specific [place] >= 1.030, Urine Protein 1+, Urine Glucose (UA) 2+, Urine Ketones Negative, Urine Blood Negative, Urine Nitrate Negative, Urine Bilirubin 1+ A, Urine Urobilinogen 4.0, Ur Leukocyte Esterase Negative, Urine RBC None, Urine WBC None, Ur Squamous Epith Cells Occasional, Urine Bacteria None, Urine Mucus Trace 11/30/23 19:16 11/30/23 19:16 Orders (Tests/Meds): ED MEDICATIONS Discontinued Medications Generic Name Dose Route Start Last Admin Trade Name Shayan PRN Reason Stop Dose Admin Acetaminophen 1,000 mg 11/30/23 18:57 11/30/23 19:37 Acetaminophen 500mg Tab PO 11/30/23 18:58 Not Given ONCE ONE Acetaminophen 1,000 mg 11/30/23 19:01 11/30/23 19:56 Acetaminophen 1,000mg/100ml Vial IV 11/30/23 19:02 1,000 mg ONCE ONE Administration Lactated Ringer's 1,000 mls @ 999 mls/hr 11/30/23 19:01 11/30/23 19:56 Lactated Ringer's 1000 Ml Bag IV 11/30/23 20:01 999 mls/hr .Q1H1M ONE Administration Ibuprofen 800 mg 11/30/23 18:57 11/30/23 19:37 Ibuprofen 400 Mg Tablet PO 11/30/23 18:58 Not Given ONCE ONE Ketorolac Tromethamine 15 mg 11/30/23 19:01 11/30/23 19:55 Ketorolac 30mg/Ml Vial IV 11/30/23 19:02 15 mg ONCE ONE Administration Miscellaneous 1 each 11/30/23 19:15 11/30/23 19:36 Pha To Nursing Instruction NOTAPPLIC 11/30/23 19:16 Not Given ONCE ONE Nystatin 500,000 unit 11/30/23 19:01 11/30/23 19:55 Nystatin Susp 500,000 Units/5ml Udc PO 11/30/23 19:02 500,000 unit ONCE ONE Administration ORDERS Category Date Time Status Chest XR 2 view (NOT portable) [XR chest 2V] Stat Exams 11/30/23 19:02 Completed BNP [NT Pro Brain Natriuretic Pep.] Stat Lab 11/30/23 19:16 Completed CBC w/Auto Diff [Complete Blood Count Auto Diff] Stat Lab 11/30/23 19:16 Completed CMP [Comprehensive Metabolic Panel] Stat Lab 11/30/23 19:16 Completed Hemoglobin A1C Stat Lab 11/30/23 19:16 Completed Magnesium Stat Lab 11/30/23 19:16 Completed Rapid PCR Covid and Flu A/B Stat Lab 11/30/23 18:48 Completed UA [Urinalysis and Microscopic] Stat Lab 11/30/23 19:55 Completed VBG [Venous Blood Gas] Stat RT 11/30/23 19:04 Completed Medical Decision Narrative: In summary patient is a 68-year-old male who presents to the emergency department for evaluation of sore throat and bilateral foot pain. Patient is hemodynamically stable upon arrival, afebrile. Physical exam is remarkable for significant white coating over the posterior pharynx along with erythema and edema but his airway is patent. Patient has bilateral cervical lymphadenopathy. The remainder of his physical exam is unremarkable nonfocal including no pain on palpation of his feet and no peripheral edema.. Differential diagnosis includes thrush versus hyperglycemia uncontrolled versus diabetic neuropathy etc. Initial workup will be conducted with hematologic labs urinalysis.. Initial interventions include Tylenol Toradol. Initial workup reviewed by me and is nonactionable although his glucose is greater than 200 he has no anion gap acidosis. Upon repeat evaluation patient report improvement in his symptoms after nystatin swish swallow and initial intervention. Given this patient is appropriate for discharge with referral back to his PCP for further workup of his foot pain which is likely diabetic neuropathy, given a prescription for nystatin for 10 days with first dose given here. Patient was given strict return precautions <Luis Carlos Flood MD - Last Filed: 12/02/23 19:11> Vital Signs: 11/30/23 18:38 11/30/23 19:00 11/30/23 20:34 Temperature 98.4 F 97.9 F Temperature Source Oral Oral Pulse Rate 85 70 Pulse Rate [Radial] 99 H Respiratory Rate 18 16 Blood Pressure 164/88 H 137/78 Blood Pressure [Right Arm] 177/81 H Blood Pressure Mean 113 Blood Pressure Mean [Right Arm] 113 Blood Pressure Source Automatic Cuff Blood Pressure Source [Right Arm] Automatic Cuff Blood Pressure Position Sitting Blood Pressure Position [Right Arm] Sitting 02 Sat by Pulse Oximetry 97 98 Oxygen Delivery Method Room Air Room Air Room Air Lab Data Lab Results 11/30/23 18:48: SARS-CoV-2 (PCR) Not detected, Influenza A Untype (PCR) Not detected, Influenza Type B (PCR) Not detected 11/30/23 19:04: VBG pH 7.41, VBG pCO2 40.5, VBG pO2 55.6 H, VBG HCO3 25.0, VBG Total CO2 26.3, VBG O2 Saturation 90.4 H, VBG Base Excess 0.4, VBG Lactic Acid 1.3 11/30/23 19:16: WBC 9.9, RBC 4.46 L, Hgb 13.5 L, Hct 41.1 L, MCV 92.2, MCH 30.4, MCHC 32.9, RDW 14.3, Plt Count 183, MPV 7.6, Neut % (Auto) 77.6, Lymph % (Auto) 13.9, [place] % (Auto) 5.5, Eos % (Auto) 2.3, Baso % (Auto) 0.6, Neut # (Auto) 7.7, Lymph # (Auto) 1.4, [place] # (Auto) 0.6, Eos # (Auto) 0.2, Baso # (Auto) 0.1, Sodium 136, Potassium 4.0, Chloride 108 H, Carbon Dioxide 20 L, Anion Gap 12.0, BUN 9, Creatinine 0.60 L, Estimated Creat Clear 100, Estimated GFR 135, Est GFR ( Amer) 163, Glucose 231 H, Hemoglobin A1c 10.5 H, Calcium 8.5, Magnesium 1.7, Total Bilirubin 1.1, AST 41, ALT 20, Alkaline Phosphatase 182 H, NT-Pro-B Natriuret Pep 172 H, Total Protein 7.2, Albumin 4.1, Globulin 3.1, Albumin/Globulin Ratio 1.3 11/30/23 19:55: Urine Color Dark yellow, Urine Appearance Slightly cloudy, Urine pH 6.0, Ur Specific [place] >= 1.030, Urine Protein 1+, Urine Glucose (UA) 2+, Urine Ketones Negative, Urine Blood Negative, Urine Nitrate Negative, Urine Bilirubin 1+ A, Urine Urobilinogen 4.0, Ur Leukocyte Esterase Negative, Urine RBC None, Urine WBC None, Ur Squamous Epith Cells Occasional, Urine Bacteria None, Urine Mucus Trace Orders (Tests/Meds): ED MEDICATIONS Discontinued Medications Generic Name Dose Route Start Last Admin Trade Name Shayan PRN Reason Stop Dose Admin Acetaminophen 1,000 mg 11/30/23 18:57 11/30/23 19:37 Acetaminophen 500mg Tab PO 11/30/23 18:58 Not Given ONCE ONE Acetaminophen 1,000 mg 11/30/23 19:01 11/30/23 19:56 Acetaminophen 1,000mg/100ml Vial IV 11/30/23 19:02 1,000 mg ONCE ONE Administration Lactated Ringer's 1,000 mls @ 999 mls/hr 11/30/23 19:01 11/30/23 19:56 Lactated Ringer's 1000 Ml Bag IV 11/30/23 20:01 999 mls/hr .Q1H1M ONE Administration Ibuprofen 800 mg 11/30/23 18:57 11/30/23 19:37 Ibuprofen 400 Mg Tablet PO 11/30/23 18:58 Not Given ONCE ONE Ketorolac Tromethamine 15 mg 11/30/23 19:01 11/30/23 19:55 Ketorolac 30mg/Ml Vial IV 11/30/23 19:02 15 mg ONCE ONE Administration Miscellaneous 1 each 11/30/23 19:15 11/30/23 19:36 Pha To Nursing Instruction NOTAPPLIC 11/30/23 19:16 Not Given ONCE ONE Nystatin 500,000 unit 11/30/23 19:01 11/30/23 19:55 Nystatin Susp 500,000 Units/5ml Udc PO 11/30/23 19:02 500,000 unit ONCE ONE Administration ORDERS Category Date Time Status Chest XR 2 view (NOT portable) [XR chest 2V] Stat Exams 11/30/23 19:02 Completed BNP [NT Pro Brain Natriuretic Pep.] Stat Lab 11/30/23 19:16 Completed CBC w/Auto Diff [Complete Blood Count Auto Diff] Stat Lab 11/30/23 19:16 Completed CMP [Comprehensive Metabolic Panel] Stat Lab 11/30/23 19:16 Completed Hemoglobin A1C Stat Lab 11/30/23 19:16 Completed Magnesium Stat Lab 11/30/23 19:16 Completed Rapid PCR Covid and Flu A/B Stat Lab 11/30/23 18:48 Completed UA [Urinalysis and Microscopic] Stat Lab 11/30/23 19:55 Completed VBG [Venous Blood Gas] Stat RT 11/30/23 19:04 Completed Medical Decision Narrative: In summary patient is a 68-year-old male who presents to the emergency department for evaluation of sore throat and bilateral foot pain. Patient is hemodynamically stable upon arrival, afebrile. Physical exam is remarkable for significant white coating over the posterior pharynx along with erythema and edema but his airway is patent. Patient has bilateral cervical lymphadenopathy. The remainder of his physical exam is unremarkable nonfocal including no pain on palpation of his feet and no peripheral edema.. Differential diagnosis includes thrush versus hyperglycemia uncontrolled versus diabetic neuropathy etc. Initial workup will be conducted with hematologic labs urinalysis.. Initial interventions include Tylenol Toradol. Initial workup reviewed by me and is nonactionable although his glucose is greater than 200 he has no anion gap acidosis. Upon repeat evaluation patient report improvement in his symptoms after nystatin swish swallow and initial intervention. Given this patient is appropriate for discharge with referral back to his PCP for further workup of his foot pain which is likely diabetic neuropathy, given a prescription for nystatin for 10 days with first dose given here. Patient was given strict return precautions I was consulted by the SHAKILA, and we discussed the complexity of the problems being addressed. I approved the treatment and management plan for this patient's care in the Emergency Department, thus performing a substantive portion of the medical decision making. Luis Carlos Flood MD Critical Care <BRUCE Richardson - Last Filed: 11/30/23 22:50> Critical Care Time Critical Care Time: No
[2023-11-30 19:00] VITALS: BP 164/88; PULSE 85; O2SAT 98
--- NOTE | 2023-11-30 19:02 | XR_ITS ---
PROCEDURE INFORMATION: Exam: XR Chest Exam date and time: 11/30/2023 7:25 PM Age: 68 years old Clinical indication: Fever; Additional info: Fever and sore throat TECHNIQUE: Imaging protocol: Radiologic exam of the chest. Views: 2 views. COMPARISON: CT LUNG SCREENING 04/18/2023 10:37 AM FINDINGS: Lungs: Normal. Pleural spaces: Normal. No pleural effusion. No pneumothorax. Heart/Mediastinum: Normal. No cardiomegaly. Bones/joints: Unremarkable. IMPRESSION: No acute findings.
[2023-11-30 19:16] LABS: Coronavirus 19, PCR Not Detected (NotDetected); Influenza A, PCR Not Detected (NotDetected); Influenza B, PCR Not Detected (NotDetected)
[2023-11-30 19:23] LABS: Basophils # 0.1 K/mm3 (0-0.2); Basophils % 0.6 % (0.1-2.0); Eosinophils # 0.2 K/mm3 (0.0-0.4); Eosinophils % 2.3 % (0.1-12.0); Hematocrit 41.1 % (42.0-52.0); Hemoglobin 13.5 g/dL (14.1-18.0); Lymphocytes # 1.4 K/mm3 (0.7-4.5); Lymphocytes % 13.9 % (10-50); Mean Corpuscular HGB Conc 32.9 g/dL (31.8-35.4); Mean Corpuscular Hemoglobin 30.4 pg (27.0-31.2); Mean Corpuscular Volume 92.2 fl (80-94); Mean Platelet Volume 7.6 fl (7.4-10.4); Monocytes # 0.6 K/mm3 (0.1-1.0); Monocytes % 5.5 % (1.7-9.3); Neutrophils # 7.7 K/mm3 (1.8-7.8); Neutrophils % 77.6 % (37.0-80.0); Platelet Count 183 K/mm3 (142-424); Red Blood Count 4.46 M/mm3 (4.60-6.20); Red Cell Distribution Width 14.3 % (11.5-17.5); White Blood Count 9.9 K/mm3 (4.8-10.8)
[2023-11-30 19:32] LABS: Albumin Level 4.1 g/dl (3.5-5.0); Chloride 108 mmol/L (98-107); Sodium 136 mmol/L (136-145)
[2023-11-30 19:33] LABS: Magnesium 1.7 mg/dl (1.6-2.3)
[2023-11-30 19:35] LABS: Alanine Aminotransferase 20 U/L (12-78); Albumin/Globulin Ratio 1.3 (1.1-1.8); Alkaline Phosphatase 182 U/L (38-126); Aspartate Amino Transferase 41 U/L (17-59); Bilirubin,Total 1.1 mg/dl (0.2-1.3); Blood Urea Nitrogen 9 mg/dl (9-20); Calcium 8.5 mg/dl (8.4-10.2); Carbon Dioxide 20 mmol/L (22.0-30.0); Creatinine Clearance Estimated 100 mL/min (50-200); Estimated Glomerular Filt Rate 135 ml/min (>60); GFR (African American) 163 ML/MIN (>60); Globulin 3.1 g/dL (1.3-3.2); Glucose 231 mg/dl (74-100); Total Protein,Serum 7.2 g/dl (6.3-8.2)
[2023-11-30 19:36] LABS: Hemoglobin A1C 10.5 % (4.0-6.0)
--- NOTE | 2023-11-30 19:36 | PC.NURSE ---
Spoke with provider regarding multiple orders of NSAID and Tylenol. Verified that orders were to be changed to IV route of tylenol and toradol. Correct orders discontinued at this time.
[2023-11-30 19:38] LABS: Lactate Venous 1.3 mmol/L (0.4-2.0); VBG Base Excess 0.4 mmol/L (-2.4-2.3); VBG Oxygen Saturation 90.4 % (50-70); VBG PCO2 40.5 mmol/L (35-51); VBG PH 7.41 mmol/L (7.31-7.41); VBG PO2 55.6 mmol/L (28-40); VBG Total CO2 26.3 mmol/L (23-27)
[2023-11-30 19:44] LABS: NT Pro Brain Natriuretic Pep. 172 pg/mL (0-125)
--- NOTE | 2023-11-30 19:52 | PC.NURSE ---
Contacted pharmacy to update on order changes and verify toradol.
[2023-11-30] MEDS: KETOROLAC 30MG/ML VIAL 15 MG IV (19:55)
[2023-11-30] MEDS: NYSTATIN SUSP 500,000 UNITS/5ML UDC 500000 UNIT PO (19:55)
[2023-11-30] MEDS: ACETAMINOPHEN 1,000MG/100ML VIAL 1000 MG IV (19:56)
[2023-11-30] MEDS: LACTATED RINGERS 1000ML 1,000 ML 999 ML IV (19:56)
[2023-11-30 20:00] LABS: Microscopic, Urine URINE MICROSCOPIC (MICROSCOPIC)
[2023-11-30 20:04] LABS: Blood, Urine Negative (Negative); Glucose,Urine (UA) 2+ (Negative); Ketones,Urine Negative (Negative); Leukocyte Esterase,Urine Negative (Negative); Nitrate,Urine Negative (Negative); Protein,Urine 1+ (Negative); Specific Gravity, Urine >= 1.030 (1.005-1.030)
[2023-11-30 20:06] LABS: Bilirubin,Urine 1+ (Negative); Color,Urine Dark Yellow (Yellow)
[2023-11-30 20:07] LABS: Appearance,Urine Slightly Cloudy (Clear)
[2023-11-30 20:20] LABS: Mucus,Urine Trace /lpf; Squamous Epithelial Cell,Urine Occasional #/hpf (0-5)
[2023-11-30 20:34] VITALS: BP 137/78; PULSE 70; RESP 16; TEMP 36.6; O2SAT 98
== END 2023-11-30 20:37 | disposition home or self-care (01) ==
PROVIDERS: Physician Assistant; Emergency Provider Emergency Medicine; PCP Internal Medicine
DX: J06.9 Acute upper respiratory infection, unspecified (principal)
CPT/HCPCS: 71046; 80053; 81001; 82803; 83036; 83735; 83880; 85025; 87636; J0131; J1885; J7120

== ENCOUNTER 2023-11-30 20:38 | Emergency (ER) | payer MEDICARE, SELFPAY ==
--- NOTE | 2023-11-30 20:44 | HMH.EDGENADL ---
Discharge Plan Disposition Patient Disposition: Home, Self-Care Condition: Good Prescriptions Prescriptions: No Action metformin 500 mg tablet 500 mg PO BID Qty: 60 2RF rosuvastatin 10 mg tablet 10 mg PO DAILY Qty: 30 2RF cholecalciferol (vitamin D3) 1,250 mcg (50,000 unit) capsule 1,250 mcg PO WEEKLY Qty: 10 0RF peg 3350-electrolytes [GaviLyte-G] 236-22.74-6.74 -5.86 gram recon soln 240 ml PO Q10M Qty: 4000 0RF Rx Instructions: Follow mailed instructions, pharmacy may substitute if needed. nystatin 100,000 unit/mL suspension 1 ml PO QID 10 Days Qty: 40 0RF Rx Instructions: swish and swallow Referrals Follow up/Referrals: Elia Cho DO [Primary Care Provider] - See instructions Activity Restrictions/Add. Instructions Additional Instructions/Restrictions: Return to the emergency department for any worsening signs of symptoms of nausea intractable, intractable headache, change in level of consciousness. Follow-up with your PCP as scheduled this week. Clinical Impressions Clinical Impression: Fall Qualifiers: Encounter type: initial encounter Qualified Code(s): W19.XXXA - Unspecified fall, initial encounter Abrasion of forehead Qualifiers: Encounter type: initial encounter Qualified Code(s): S00.81XA - Abrasion of other part of head, initial encounter Instructions Patient Instructions: DI for Concussion Print Language Print Language: Ecuadorean Discharge ED Provider: Luis Carlos Flood General Adult HPI <BRUCE Richardson - Last Filed: 11/30/23 22:33> General Chief complaint: Fall Stated complaint: fell and hit head Time Seen by Provider: 11/30/23 20:44 History of Present Illness HPI narrative: Patient was in the parking lot after having just been discharged for his sore throat and his feet got tangled up and he fell in the parking lot glancing his head off of the curb. He did not lose consciousness. In fact we were with him immediately as it was a witnessed trip by his sister. Other than a slight abrasion to his forehead patient denies any pain fever chills hemoptysis nausea vomiting. Related Data Previous Rx's ?Medication ?Instructions ?Recorded cholecalciferol (vitamin D3) 1,250 1,250 mcg PO WEEKLY #10 caps 04/15/23 mcg (50,000 unit) capsule metformin 500 mg tablet 500 mg PO BID #60 tabs 04/15/23 rosuvastatin 10 mg tablet 10 mg PO DAILY #30 tabs 04/15/23 peg 3350-electrolytes 236 240 ml PO Q10M bowel prep #4,000 mL 07/28/23 gram-22.74 gram-6.74 gram-5.86 gram solution (GaviLyte-G) nystatin 100,000 unit/mL oral 1 ml PO QID 10 days #40 mL 11/30/23 suspension Allergies Allergy/AdvReac Type Severity Reaction Status Date / Time Penicillins [PENICILLINS] Allergy Unknown Verified 08/13/23 08:31 PFS <BRUCE Richardson - Last Filed: 11/30/23 22:33> [facility] Disclaimer: The information contained in this section may have been updated after the patient was seen, as this information can be updated by other users. Medical History (Updated 11/30/23 @ 21:33 by BRUCE Richardson) Diabetes mellitus Hypertension COPD (chronic obstructive pulmonary disease) Surgical History History of colonoscopy Hx of cholecystectomy History of appendectomy Family History Other Family history of COPD (chronic obstructive pulmonary disease) Social History (Updated 08/13/23 @ 09:18 by Pedro Vicente CRNA) Smoking Status: Current every day smoker tobacco type: cigarettes packs per day: 1 second hand exposure: No alcohol intake: never substance use type: denies use current occupational status: other Travel in the last 8 weeks: None <BRUCE Richardson - Last Filed: 11/30/23 22:33> ROS Obtained: Yes Systems reviewed as appropriate & no additional complaints except as documented Physical Exam <BRUCE Richardson - Last Filed:
--- NOTE | 2023-11-30 20:46 | CT_ITS ---
PROCEDURE INFORMATION: Exam: CT Head Without Contrast Exam date and time: 11/30/2023 9:00 PM Age: 68 years old Clinical indication: Injury or trauma; Fall; Laceration; Without residual foreign body; Forehead; Additional info: Fall, forehead trauma TECHNIQUE: Imaging protocol: Computed tomography of the head without contrast. Radiation optimization: All CT scans at this facility use at least one of these dose optimization techniques: automated exposure control; mA and/or kV adjustment per patient size (includes targeted exams where dose is matched to clinical indication); or iterative reconstruction. COMPARISON: CT HEAD/BRAIN WO CON 03/13/2023 5:06 PM FINDINGS: Brain: Mild supratentorial white matter hypodensities are likely the sequela of chronic small vessel ischemic disease. Mild atrophy. No hemorrhage, edema, or mass effect. Cerebral ventricles: Mild ventriculomegaly secondary to atrophy. Paranasal sinuses: Visualized sinuses are unremarkable. No fluid levels. Mastoid air cells: Visualized mastoid air cells are well aerated. Bones: Unremarkable. No acute fracture. Soft tissues: Unremarkable. Vasculature: Moderate atherosclerotic plaque in the distal internal carotid arteries. IMPRESSION: No acute intracranial findings.
--- NOTE | 2023-11-30 20:46 | CT_ITS ---
PROCEDURE INFORMATION: Exam: CT Cervical Spine Without Contrast Exam date and time: 11/30/2023 9:02 PM Age: 68 years old Clinical indication: Injury or trauma; Fall; Laceration; Without foreign body; Additional info: Fall, head trauma TECHNIQUE: Imaging protocol: Computed tomography of the cervical spine without contrast. Radiation optimization: All CT scans at this facility use at least one of these dose optimization techniques: automated exposure control; mA and/or kV adjustment per patient size (includes targeted exams where dose is matched to clinical indication); or iterative reconstruction. COMPARISON: CT HEAD/BRAIN WO CON 11/30/2023 9:00 PM FINDINGS: Bones: No cervical spine fracture or acute listhesis. Mild multilevel degenerative disc disease is greatest at C3-C4. Slight retrolisthesis of C3 over C4. Mild bilateral neural foraminal stenosis at C3-C4. Lungs: Lung apices are normal. Soft tissues: Unremarkable. IMPRESSION: No cervical spine fracture or acute listhesis.
[2023-11-30 20:47] VITALS: BP 159/91; PULSE 83; RESP 16; TEMP 36.8; O2SAT 98; BMI 34.0
[2023-11-30 21:35] VITALS: BP 147/79; PULSE 81; RESP 18; TEMP 36.8; O2SAT 97
== END 2023-11-30 21:40 | disposition home or self-care (01) ==
PROVIDERS: Emergency Provider Emergency Medicine; PCP Internal Medicine
DX: S00.81XA Abrasion of other part of head, initial encounter (principal); E11.9 Type 2 diabetes mellitus without complications; J44.9 Chronic obstructive pulmonary disease, unspecified; I10 Essential (primary) hypertension; F17.210 Nicotine dependence, cigarettes, uncomplicated; W01.0XXA Fall on same level from slipping, tripping and stumbling without subsequent striking against object, initial encounter; Y92.481 Parking lot as the place of occurrence of the external cause
CPT/HCPCS: 70450; 71046; 72125; 80053; 81001; 82803; 83036; 83735; 83880; 85025; 87636; 90715; 96372; 99285; J0131; J1885; J7120

== ENCOUNTER 2023-12-05 14:50 | Outpatient (CLI) | payer MEDICARE, SELFPAY ==
--- NOTE | 2023-12-05 14:57 | XR_ITS ---
FINAL REPORT CLINICAL HISTORY: LBP with sciatica, numbness and tingling COMPARISON: None FINDINGS: Four views of the lumbar spine were obtained. There is no evidence of fracture. There is no malalignment. There is abnormal loss of height of the L4-5 disc. There is moderate anterior osteophyte formation at L3-4, L4-5, and L5-S1. No paraspinous soft tissue abnormalities identified. IMPRESSION: Abnormal loss of height at L4-5. Moderate anterior osteophyte formation. Reviewed, Interpreted and Dictated by Kyle Benitez MD Transcribed by Shelia Diaz Authenticated and [facility]
== END 2023-12-05 23:59 | disposition home or self-care (01) ==
LOC: RAD 14:53
PROVIDERS: PCP Nurse Practitioner Family; Visit Provider Nurse Practitioner Family
DX: M54.41 Lumbago with sciatica, right side (principal); M54.42 Lumbago with sciatica, left side; R20.0 Anesthesia of skin; R20.2 Paresthesia of skin
CPT/HCPCS: 72100

== ENCOUNTER 2023-12-23 14:45 | Outpatient (CLI) | payer MEDICARE, SELFPAY ==
--- NOTE | 2023-12-23 14:52 | MR_ITS ---
FINAL REPORT CLINICAL HISTORY: LBP with bilateral sciatica, numbness and tingling COMPARISON: None FINDINGS: Multiplanar MR imaging of the lumbar spine was performed without contrast. On the sagittal T2-weighted images, there is abnormal decreased signal at the L1-2, L3-4, L4-5, and L5-S1 disc levels. There is moderate loss of height at all levels. Minimal spondylolisthesis is noted of L5 on S1. L1-2: There is no significant canal stenosis or neural foraminal narrowing. L2-3: There is no significant canal stenosis or neural foraminal narrowing. L3-4: Mild diffuse disc bulge. Mild to moderate bilateral neuroforaminal narrowing. L4-5: Moderate diffuse disc bulge. Left posterolateral disc protrusion. High-grade left neuroforaminal narrowing. L5-S1: Moderate diffuse disc bulge. Moderate to high-grade bilateral neuroforaminal narrowing. IMPRESSION: Disc bulges most evident at L4-5 and L5-S1 with high-grade left neuroforaminal narrowing at L4-5 and moderate to high-grade bilaterally at L5-S1. Reviewed, Interpreted and Dictated by Kyle Benitez MD Transcribed by Shelia Diaz Authenticated and [facility]
== END 2023-12-23 23:59 | disposition home or self-care (01) ==
LOC: RAD 14:45
PROVIDERS: PCP Nurse Practitioner Family; Visit Provider Nurse Practitioner Family
DX: R20.0 Anesthesia of skin (principal); R20.2 Paresthesia of skin; M54.42 Lumbago with sciatica, left side; M54.41 Lumbago with sciatica, right side; M25.70 Osteophyte, unspecified joint
CPT/HCPCS: 72148

== ENCOUNTER 2024-03-13 23:23 | Emergency (ER) | payer MEDICARE, SELFPAY ==
[2024-03-13 23:25] VITALS: BP 181/77; PULSE 106; RESP 18; TEMP 36.7; O2SAT 98; BMI 28.2
--- NOTE | 2024-03-13 23:43 | ED_ITS ---
Discharge Plan Disposition Patient Disposition: Home, Self-Care Prescriptions Prescriptions: New levofloxacin 750 mg tablet 750 mg PO DAILY 28 Days Qty: 28 0RF No Action metformin 500 mg tablet 500 mg PO BID Qty: 60 2RF rosuvastatin 10 mg tablet 10 mg PO DAILY Qty: 30 2RF cholecalciferol (vitamin D3) 1,250 mcg (50,000 unit) capsule 1,250 mcg PO WEEKLY Qty: 10 0RF Trelegy Ellipta 100-62.5-25 mcg blister with device 1 inh inhalation DAILY Qty: 60 3RF Jardiance 10 mg tablet 10 mg PO DAILY Qty: 30 2RF albuterol sulfate 90 mcg/actuation HFA aerosol inhaler 2 puff inhalation Q4-6H PRN (Reason: shortness of breath or wheezing) Qty: 6.7 1RF losartan 25 mg tablet 25 mg PO DAILY Qty: 30 0RF (DME) blood-glucose meter Kit See Rx Instructions .Route Qty: 1 0RF Rx Instructions: As directed once daily (DME) lancets [Accu-Chek Softclix Lancets] Misc See Rx Instructions .Route Qty: 100 3RF Rx Instructions: As directed once daily (DME) blood sugar diagnostic Strip See Rx Instructions .Route Qty: 100 3RF Rx Instructions: As directed once daily nystatin 100,000 unit/mL suspension 1 ml PO QID 10 Days Qty: 40 0RF Rx Instructions: swish and swallow Referrals Follow up/Referrals: Elizabeth Mensah APRN [Primary Care Provider] - See instructions Activity Restrictions/Add. Instructions Additional Instructions/Restrictions: Please take antibiotics as prescribed for treatment of prostatitis. Please follow-up with your primary care provider. Please return to the emergency department if you develop any new or worsening symptoms or become concerned for your health. Clinical Impressions Clinical Impression: Left inguinal hernia Prostatitis Qualifiers: Prostatitis type: acute Qualified Code(s): N41.0 - Acute prostatitis Instructions Patient Instructions: DI for Acute Abdominal Pain Print Language Print Language: Spanish Discharge ED Provider: Victoriano Bush General Adult HPI General Chief complaint: Abdominal Pain Stated complaint: pain in groin, pain with urination Time Seen by Provider: 03/13/24 23:42 History of Present Illness HPI narrative: 68-year-old male with history of 10, COPD, type 2 diabetes presents for several days of left inguinal pain. Reports his testicles do not hurt but it hurts behind them and on the leg beside them. He denies history of kidney stones. Reports that he has been peeing and pooping normally without pain. Denies fever at home. Pain is sharp and severe. Related Data Previous Rx's ?Medication ?Instructions ?Recorded cholecalciferol (vitamin D3) 1,250 1,250 mcg PO WEEKLY #10 caps 04/15/23 mcg (50,000 unit) capsule metformin 500 mg tablet 500 mg PO BID #60 tabs 04/15/23 rosuvastatin 10 mg tablet 10 mg PO DAILY #30 tabs 04/15/23 nystatin 100,000 unit/mL oral 1 ml PO QID 10 days #40 mL 11/30/23 suspension albuterol sulfate 90 mcg/actuation 2 puff inhalation Q4-6H PRN 12/05/23 aerosol inhaler shortness of breath or wheezing #6.7 grams empagliflozin 10 mg tablet 10 mg PO DAILY #30 tabs 12/05/23 (Jardiance) fluticasone fur. 100 mcg-umeclid 1 inh inhalation DAILY #60 ea 12/05/23 62.5 mcg-vilant 25 mcg inhalat.powder (Trelegy Ellipta) losartan 25 mg tablet 25 mg PO DAILY #30 tabs 12/05/23 blood sugar diagnostic #100 ea 12/09/23 blood-glucose meter #1 ea 12/09/23 lancets (Accu-Chek Softclix #100 ea 12/09/23 Lancets) levofloxacin 750 mg tablet 750 mg PO DAILY 28 days #28 tabs 03/14/24 Allergies Allergy/AdvReac Type Severity Reaction Status Date / Time Penicillins (PENICILLINS) Allergy Unknown Verified 12/05/23 14:07 [facility] Disclaimer: The information contained in this section may have been updated after the patient was seen, as this information can be updated by other users. Medical History (Updated 03/14/24 @ 02:08 by Victoriano Bush MD) Diabetes mellitus Hypertension COPD (chronic obstructive pulmonary disease) Surgical History History of colonoscopy Hx of cholecystectomy History of appendectomy Family History Other Family history of COPD (chronic obstructive pulmonary disease) Social History Smoking Status: Current every day smoker tobacco type: cigarettes packs per day: 1 second hand exposure: No alcohol intake: never substance use type: denies use current occupational status: other Travel in the last 8 weeks: None Other Medical History Have you received the Flu Vaccine for this season: Yes Have you received the Pneumonia Vaccine: Yes ROS Obtained: Yes All systems reviewed & no additional complaints except as documented Physical Exam General General appearance: alert and in no apparent distress Head Head exam: atraumatic Eye Eye exam: Present normal appearance, PERRL and EOMI ENT ENT exam: Present normal oropharynx and normal external ear exam Neck Neck exam: Present normal inspection and full ROM Chest Chest inspection: Present normal inspection and symmetric chest wall rise; Absent tenderness Respiratory Respiratory exam: Present normal lung sounds bilaterally; Absent respiratory distress Cardiovascular Cardiovascular exam: Present regular rate and normal rhythm Abdominal Exam Abdominal exam: Present soft and tenderness (Left inguinal); Absent distention or guarding Rectal Exam Rectal exam: Present prostate tenderness and prostate enlargement exam: Present normal inspection, normal testicular lie and other (Fullness in the left inguinal canal); Absent testicular tenderness or scrotal swelling Extremities Exam Extremities exam: Present normal inspection; Absent edema or joint swelling Back Exam Back exam: Present normal inspection; Absent tenderness Neurological Exam Neurological exam: Present alert and oriented X3; Absent motor sensory deficit Psychiatric Psychiatric exam: Present normal affect and normal mood Skin Skin exam: Present warm, dry and normal color Lymphatic Lymphatic Findings: no adenopathy Medical Decision Making Medical Records Medical records reviewed: Yes I reviewed the patient's medical records. Screening: Per USPSTF and CDC recommendations, given the prevalence of disease in our region, it is our hospital?s policy to screen for HIV and viral Hepatitis for all patients aged 18 and over and those with ongoing risk factors. Daniel Inquiry Pt receiving controlled substance: No Daniel was queried for this patient: No Vital Signs: 03/13/24 23:25 03/14/24 02:16 Temperature 98.1 F 98 F Temperature Source Oral Pulse Rate 90 Pulse Rate [Left] 106 H Respiratory Rate 18 18 Blood Pressure 140/87 Blood Pressure [Right Arm] 181/77 H Blood Pressure Mean [Right Arm] 111 02 Sat by Pulse Oximetry 98 Oxygen Delivery Method Room Air Room Air Lab Data Lab results reviewed: Yes I reviewed the patient's lab results. Lab Results 03/13/24 23:43: WBC 5.4, RBC 4.57 L, Hgb 14.0 L, Hct 41.1 L, MCV 90.0, MCH 30.6, MCHC 34.1, RDW 14.2, Plt Count 187, MPV 7.5, Neut % (Auto) 61.6, Lymph % (Auto) 28.0, Jackson % (Auto) 6.8, Eos % (Auto) 2.4, Baso % (Auto) 1.1, Neut # (Auto) 3.3, Lymph # (Auto) 1.5, Jackson # (Auto) 0.4, Eos # (Auto) 0.1, Baso # (Auto) 0.1, Sodium 142, Potassium 3.7, Chloride 109 H, Carbon Dioxide 26, Anion Gap 10.7, BUN 12, Creatinine 0.70, Estimated Creat Clear 89, Estimated GFR 113, Est GFR ( Amer) 137, Glucose 332 H, Calcium 9.1, Total Bilirubin 0.6, AST 37, ALT 30, Alkaline Phosphatase 245 H, Total Protein 7.5, Albumin 4.2, Globulin 3.3 H, Albumin/Globulin Ratio 1.3, HIV 1&2 Antibody Rapid Nonreactive 03/14/24 01:29: Urine Color Yellow, Urine Appearance Clear, Urine pH 6.5, Ur Specific Hellier 1.010, Urine Protein Negative, Urine Glucose (UA) 3+, Urine Ketones Negative, Urine Blood Negative, Urine Nitrate Negative, Urine Bilirubin Negative, Urine Urobilinogen 1.0, Ur Leukocyte Esterase Negative, Urine RBC None, Urine WBC None, Ur Squamous Epith Cells Occasional, Urine Bacteria Trace 03/13/24 23:43 03/13/24 23:43 Orders (Tests/Meds): ED MEDICATIONS Discontinued Medications Generic Name Dose Route Start Last Admin Trade Name Freq PRN Reason Stop Dose Admin Acetaminophen 1,000 mg 03/13/24 23:51 03/14/24 00:19 Acetaminophen 500mg Tab PO 03/13/24 23:52 1,000 mg ONCE ONE Administration Iopamidol 75 ml 03/14/24 00:35 03/14/24 00:36 Iopamidol-370 (76%);100ml Bottle IV 03/14/24 00:36 75 ml ONCE ONE Administration Ketorolac Tromethamine 30 mg 03/13/24 23:49 03/14/24 00:20 Ketorolac 30mg/Ml Vial IV 03/13/24 23:50 30 mg ONCE ONE Administration Levofloxacin 750 mg 03/14/24 02:04 03/14/24 02:10 Levofloxacin 750 Mg Tablet PO 03/14/24 02:05 750 mg ONCE ONE Administration Ondansetron HCl 4 mg 03/13/24 23:50 03/14/24 00:20 Ondansetron 4mg/2ml Vial IV 03/13/24 23:51 4 mg ONCE ONE Administration Sodium Chloride 10 ml 03/14/24 00:35 03/14/24 00:36 Sodium Chloride 0.9% 10ml Syr (Rad Only) IV 04/13/24 00:34 10 ml NEEDED PRN Administration Maintain IV Site ORDERS Category Date Time Status CT abdomen pelvis w con Stat Cat Scan 03/13/24 23:54 Completed CBC w/Auto Diff [Complete Blood Count Auto Diff] Stat Lab 03/13/24 23:43 Completed CMP [Comprehensive Metabolic Panel] Stat Lab 03/13/24 23:43 Completed HIV (1&2) Antibody Rapid Stat Lab 03/13/24 23:43 Completed Hep C Ab with Reflex to RNA Stat Lab 03/13/24 23:43 Received UA [Urinalysis and Microscopic] Stat Lab 03/14/24 01:29 Completed Medical Decision Narrative: 68-year-old male with history of htn, copd, diabetes presents for left groin and left flank pain. History was obtained via interactive discussion with patient, chart review. On arrival, patient is [afebrile, hemodynamically stable, satting appropriately, alert, oriented x4, GCS 15], moving all extremities spontaneously. Full physical exam performed and significant for no testicular tenderness or swelling, some fullness in the left inguinal canal, significant abdominal tenderness Differential includes but is not limited to UTI kidney stone hernia testicular pathology prostatitis. Patient was given Tylenol, Toradol, Zofran for symptomatic management and correction of underlying abnormalities. Workup initiated including CBC CMP UA CT abdomen pelvis with IV contrast. On re-evaluation, patient [remains afebrile, HD stable.] Reports improvement of pain. Laboratory workup independently interpreted by me and significant for trace bacteria in the urine but otherwise unremarkable, no significant electrolyte derangement, normal renal function. Imaging independently interpreted by me and significant for what looks like a small fluid containing left inguinal hernia, no other acute pathology noted. See radiology read for full review of final results. I again discussed the patient's symptoms and workup with him. After this discussion we decided to perform a prostate exam which did show a boggy and tender prostate consistent with prostatitis. Given this, patient was initiated on Levaquin for 4 weeks and he was instructed to follow-up with his PCP for further assessment. Procedures Risk/Benefits of Procedure(s) Were Explained: Yes Critical Care Critical Care Time Critical Care Time: No
--- NOTE | 2024-03-13 23:54 | CT_ITS ---
PROCEDURE INFORMATION: Exam: CT Abdomen And Pelvis With Contrast Exam date and time: 03/14/2024 12:26 AM Age: 68 years old Clinical indication: Abdominal pain; Flank; Right; Additional info: Right inguinal pain, flank pain TECHNIQUE: Imaging protocol: Computed tomography of the abdomen and pelvis with contrast. Radiation optimization: All CT scans at this facility use at least one of these dose optimization techniques: automated exposure control; mA and/or kV adjustment per patient size (includes targeted exams where dose is matched to clinical indication); or iterative reconstruction. Contrast material: ISOVUE; Contrast volume: 75 ml; Contrast route: IV; COMPARISON: 1. MR LUMBAR SPINE WO CON 12/23/2023 3:[address] LUNG SCREENING 04/18/2023 10:37 AM 3. CR XR LUMBAR SPINE 2-3V 12/05/2023 3:03 PM FINDINGS: Liver: There are calcifications in the liver which most likely reflect calcified granulomas. Gallbladder and biliary ducts: Gallbladder is collapsed. Pancreas: There is fatty replacement of the pancreas. Spleen: There are multiple calcifications in the spleen most likely reflects small granulomas. Adrenal glands: The adrenal glands appear normal. Kidneys and ureters: There are no soft tissue renal masses or hydronephrosis. Stomach and bowel: There is large volume stool throughout the colon. Appendix: No evidence of appendicitis. Intraperitoneal space: Unremarkable. Vasculature: The abdominal aorta and its major branches appear normal without evidence of aneurysm or stenosis. There are pelvic phleboliths. Lymph nodes: There are mildly prominent but nonenlarged and nonspecific retroperitoneal nodes. Mildly prominent nodes in the central mesentery, nonspecific. Urinary bladder: Unremarkable as visualized. Reproductive: High position of the left testicle. Bones/joints: The visualized osseous structures of the abdomen and pelvis appear normal for patient age. Soft tissues: There is a small fat containing umbilical hernia. IMPRESSION: No acute inflammatory or obstructive process is identified. Incidental findings are described within the findings section.
[2024-03-14] LABS: Basophils # 0.1 K/mm3 (0-0.2); Basophils % 1.1 % (0.1-2.0); Eosinophils # 0.1 K/mm3 (0.0-0.4); Eosinophils % 2.4 % (0.1-12.0); Hematocrit 41.1 % (42.0-52.0); Lymphocytes # 1.5 K/mm3 (0.7-4.5); Mean Corpuscular HGB Conc 34.1 g/dL (31.8-35.4); Mean Corpuscular Hemoglobin 30.6 pg (27.0-31.2); Mean Platelet Volume 7.5 fl (7.4-10.4); Monocytes # 0.4 K/mm3 (0.1-1.0); Monocytes % 6.8 % (1.7-9.3); Neutrophils # 3.3 K/mm3 (1.8-7.8); Neutrophils % 61.6 % (37.0-80.0); Platelet Count 187 K/mm3 (142-424); Red Blood Count 4.57 M/mm3 (4.60-6.20); Red Cell Distribution Width 14.2 % (11.5-17.5); White Blood Count 5.4 K/mm3 (4.8-10.8)
[2024-03-14 00:12] LABS: Alanine Aminotransferase 30 U/L (12-78); Albumin Level 4.2 g/dl (3.5-5.0); Albumin/Globulin Ratio 1.3 (1.1-1.8); Alkaline Phosphatase 245 U/L (38-126); Anion Gap 10.7 mEq/L (5-15); Aspartate Amino Transferase 37 U/L (17-59); Bilirubin,Total 0.6 mg/dl (0.2-1.3); Blood Urea Nitrogen 12 mg/dl (9-20); Calcium 9.1 mg/dl (8.4-10.2); Carbon Dioxide 26 mmol/L (22.0-30.0); Chloride 109 mmol/L (98-107); Creatinine Clearance Estimated 89 mL/min (50-200); Estimated Glomerular Filt Rate 113 ml/min (>60); GFR (African American) 137 ML/MIN (>60); Globulin 3.3 g/dL (1.3-3.2); Glucose 332 mg/dl (74-100); Potassium 3.7 mmoL/L (3.5-5.1); Sodium 142 mmol/L (136-145); Total Protein,Serum 7.5 g/dl (6.3-8.2)
[2024-03-14] MEDS: ACETAMINOPHEN 500MG TAB 1000 MG PO (00:19)
[2024-03-14] MEDS: ONDANSETRON 4MG/2ML VIAL 4 MG IV (00:20)
[2024-03-14] MEDS: KETOROLAC 30MG/ML VIAL 30 MG IV (00:20)
[2024-03-14] MEDS: SODIUM CHLORIDE 0.9% 10ML SYR (RAD ONLY) 10 ML IV (00:36)
[2024-03-14] MEDS: IOPAMIDOL-370 (76%);100ML BOTTLE 75 ML IV (00:36)
[2024-03-14 00:46] LABS: HIV (1&2) Antibody Rapid NONREACTIVE (NONREACTIVE)
[2024-03-14 01:35] LABS: Microscopic, Urine URINE MICROSCOPIC (MICROSCOPIC)
[2024-03-14 01:37] LABS: Appearance,Urine CLEAR (Clear); Bilirubin,Urine Negative (Negative); Blood, Urine Negative (Negative); Color,Urine YELLOW (Yellow); Glucose,Urine (UA) 3+ (Negative); Ketones,Urine Negative (Negative); Leukocyte Esterase,Urine Negative (Negative); Nitrate,Urine Negative (Negative); PH,Urine 6.5 (5.0-8.5); Protein,Urine Negative (Negative)
[2024-03-14 01:50] LABS: Bacteria,Urine Trace /lpf; Squamous Epithelial Cell,Urine Occasional #/hpf (0-5)
[2024-03-14] MEDS: levoFLOXacin 750 MG TABLET PO (02:10)
[2024-03-14 02:16] VITALS: BP 140/87; PULSE 90; RESP 18; TEMP 36.6; O2SAT 94
[2024-03-15 08:08] LABS: HCV Ab Non Reactive (Non Reactive)
== END 2024-03-14 02:21 | disposition home or self-care (01) ==
PROVIDERS: Emergency Provider Emergency Medicine; PCP Nurse Practitioner Family
DX: N41.0 Acute prostatitis (principal); K40.90 Unilateral inguinal hernia, without obstruction or gangrene, not specified as recurrent; R10.32 Left lower quadrant pain; R30.9 Painful micturition, unspecified
CPT/HCPCS: 74177; 80053; 81001; 85025; 86803; 87389; 96374; 96375; 99285; J1885; J2405; Q9967

== ENCOUNTER 2024-05-06 11:39 | Emergency (ER) | payer MEDICARE, SELFPAY ==
[2024-05-06] VITALS (7 sets, daily range): BP systolic 153–205; BP diastolic 89–117; PULSE 76–87; RESP 15–22; TEMP 36.7–37.1; O2SAT 95–99; BMI 29.2
--- NOTE | 2024-05-06 12:09 | PC.NURSE ---
BRUCE Kang in room for pt harinderal
--- NOTE | 2024-05-06 12:12 | XR_ITS ---
FINAL REPORT CLINICAL HISTORY: Trauma/fall FINDINGS: SINGLE VIEW CHEST The heart is normal in size. The mediastinum is unremarkable. The lungs are clear. There is no pneumothorax. IMPRESSION: No acute process. Reviewed, Interpreted and Dictated by Kyle Benitez MD Transcribed by Rebeca Cox Authenticated and [facility]
--- NOTE | 2024-05-06 12:12 | CT_ITS ---
FINAL REPORT TECHNIQUE: Axial images were obtained of the lumbar spine by computed tomography. Coronal and sagittal reconstruction process performed. This study was performed with techniques to keep radiation doses as low as reasonably achievable (ALARA). Individualized dose reduction techniques using automated exposure control or adjustment of mA and/or kV according to the patient''s size were employed. CLINICAL HISTORY: Trauma/fall FINDINGS: Lumbar vertebrae show normal height. Disc spaces are well-preserved. There is vacuum disc phenomenon at L4-5 and L5-S1. There is minimal spondylolisthesis of L5 on S1. The facets are properly aligned. L1-2: There is no significant canal stenosis or neuroforaminal narrowing. L2-3: There is no significant canal stenosis or neuroforaminal narrowing. L3-4: Mild diffuse disc bulge with mild bilateral neuroforaminal narrowing. L4-5: Moderate diffuse disc bulge with endplate hypertrophy. Moderate right and high-grade left neuroforaminal narrowing. L5-S1: Moderate diffuse disc bulge with endplate hypertrophy. Moderate bilateral neuroforaminal narrowing. IMPRESSION: Multilevel degenerative and neuroforaminal compromise as above. Reviewed, Interpreted and Dictated by Kyle Benitez MD Transcribed by Rebeca Cox Authenticated and [facility]
--- NOTE | 2024-05-06 12:12 | XR_ITS ---
FINAL REPORT CLINICAL HISTORY: Fall FINDINGS: Right knee Two views were obtained. There is no fracture or dislocation. The joint spaces appear normal. No soft tissue abnormality is identified. IMPRESSION: No acute process. Reviewed, Interpreted and Dictated by Kyle Benitez MD Transcribed by Rebeca Cox Authenticated and [facility]
--- NOTE | 2024-05-06 12:12 | CT_ITS ---
FINAL REPORT TECHNIQUE: Multiple axial CT images were performed from the foramen magnum to the vertex without enhancement. Reformatted images were obtained and reviewed. This study was performed with techniques to keep radiation doses as low as reasonably achievable, (ALARA). Individualized dose reduction techniques using automated exposure control or adjustment of mA and/or kV according to the patient's size were employed. CLINICAL HISTORY: fall, head trauma COMPARISON: 11/30/2023 FINDINGS: There is moderate atrophy with proportional ventriculomegaly. There is periventricular white matter change likely related to small vessel disease. There is no evidence of hemorrhage. No masses are identified. No extra-axial fluid is seen. There is mild mucoperiosteal thickening of the left maxillary sinus. IMPRESSION: Atrophy and chronic changes without acute process. Reviewed, Interpreted and Dictated by Kyle Benitez MD Transcribed by Rebeca Cox Authenticated and [facility]
--- NOTE | 2024-05-06 12:12 | CT_ITS ---
FINAL REPORT TECHNIQUE: Axial images were obtained of the cervical spine by computed tomography. Coronal and sagittal reconstruction process performed. This study was performed with techniques to keep radiation doses as low as reasonably achievable (ALARA). Individualized dose reduction techniques using automated exposure control or adjustment of mA and/or kV according to the patient''s size were employed. CLINICAL HISTORY: fall COMPARISON: 11/30/2023 FINDINGS: Cervical vertebrae show normal height. There are moderate hypertrophic changes of degenerative disc disease at C3-4, similar to previous. There is mild bilateral neuroforaminal narrowing at C3-4. There is no malalignment. The facets are properly aligned. IMPRESSION: Degenerative disc disease as above without acute bony abnormality. Reviewed, Interpreted and Dictated by Kyle Benitez MD Transcribed by Rebeca Cox Authenticated and [facility]
--- NOTE | 2024-05-06 12:13 | XR_ITS ---
FINAL REPORT CLINICAL HISTORY: Fall right hand/third and fourth digit pain FINDINGS: Right hand Three views were obtained. There is no fracture or dislocation. The joint spaces appear normal. No soft tissue abnormality is identified. IMPRESSION: No acute process. Reviewed, Interpreted and Dictated by Kyle Benitez MD Transcribed by Rebeca Cox Authenticated and [facility]
--- NOTE | 2024-05-06 12:15 | ED_ITS ---
<Statement entered by Stefani Macedo MD - 05/10/24 22:54> I was consulted by the SHAKILA, and we discussed the complexity of the problems being addressed. I approved the treatment and management plan for this patient's care in the emergency department, thus performing a substantive portion of the medical decision making. Stefani Macedo MD, LAUREL, FACEP Discharge Plan Disposition Patient Disposition: Home, Self-Care Condition: Good Prescriptions Prescriptions: New losartan 25 mg tablet 25 mg PO DAILY Qty: 30 0RF No Action metformin 500 mg tablet 500 mg PO BID Qty: 60 2RF rosuvastatin 10 mg tablet 10 mg PO DAILY Qty: 30 2RF cholecalciferol (vitamin D3) 1,250 mcg (50,000 unit) capsule 1,250 mcg PO WEEKLY Qty: 10 0RF Trelegy Ellipta 100-62.5-25 mcg blister with device 1 inh inhalation DAILY Qty: 60 3RF Jardiance 10 mg tablet 10 mg PO DAILY Qty: 30 2RF albuterol sulfate 90 mcg/actuation HFA aerosol inhaler 2 puff inhalation Q4-6H PRN (Reason: shortness of breath or wheezing) Qty: 6.7 1RF (DME) blood-glucose meter Kit See Rx Instructions .Route Qty: 1 0RF Rx Instructions: As directed once daily (DME) lancets [Accu-Chek Softclix Lancets] Misc See Rx Instructions .Route Qty: 100 3RF Rx Instructions: As directed once daily (DME) blood sugar diagnostic Strip See Rx Instructions .Route Qty: 100 3RF Rx Instructions: As directed once daily losartan 25 mg tablet See Rx Instructions .ROUTE .COMPLEX Qty: 30 0RF Dose Instruction: Take 1 tablet by mouth once daily Rx Instructions: Take 1 tablet by mouth once daily nystatin 100,000 unit/mL suspension 1 ml PO QID 10 Days Qty: 40 0RF Rx Instructions: swish and swallow Referrals Follow up/Referrals: Elizabeth Mensah APRN [Primary Care Provider] - See instructions Activity Restrictions/Add. Instructions Additional Instructions/Restrictions: Return to the emergency department any worsening signs or symptoms, follow-up with primary care provider, continue all medications as prescribed. Clinical Impressions Clinical Impression: Tobacco abuse counseling, Fall, Knee pain, right, Dizziness, Back pain Instructions Patient Instructions: How to Prevent Falls Print Language Print Language: Peruvian Discharge ED Provider: Stefani Macedo General Adult HPI General Chief complaint: Fall Stated complaint: AO 05/05/24 fell, inj rt knee, back, fingers on rt Time Seen by Provider: 05/06/24 12:08 Mode of Arrival: Ambulatory Source of Information: Patient Limitations: No Limitations Description of Symptoms (Recalled from ER Triage Doc. by RN): pt states he has been out of home meds for two weeks now, pt has been getting dizzy and sbp at triage was 198, pt states he slipped on some ice last night while taking trash out and landed on right hand and knee and they are sore today History of Present Illness HPI narrative: 69-year-old male presents the emergency department with a fall around 2 AM last night, patient describes it as a slip and fall , on ice while he was going to take the trash out, he admits to striking head against the trash can , no LOC, patient is unsure if he is on any blood thinners , planes of low back pain, right knee pain and right hand pain, more specifically the third and fourth digits on the right hand for where he caught himself he was able to get himself off the ground, he complains of dizziness this been going on for quite some time, he states that he has been out of multiple of his home meds and he is not quite sure which medications he is out of. Denies any fever chills chest pain cough congestion shortness of breath, abdominal pain nausea vomiting, no urinary symptomatology, no upper or lower extremity weakness, patient has been able to ambulate on the affected knee. Patient is current everyday smoker, no other history of substance use, other past medical history consistent with hyperlipidemia, hypertension, COPD, type 2 diabetes, chronic lumbar spine pain, triage vitals notable for elevated blood pressure at around 190 systolic, otherwise unremarkable. Onset (ago): hour(s) Related Data Previous Rx's ?Medication ?Instructions ?Recorded cholecalciferol (vitamin D3) 1,250 1,250 mcg PO WEEKLY #10 caps 04/15/23 mcg (50,000 unit) capsule metformin 500 mg tablet 500 mg PO BID #60 tabs 04/15/23 rosuvastatin 10 mg tablet 10 mg PO DAILY #30 tabs 04/15/23 nystatin 100,000 unit/mL oral 1 ml PO QID 10 days #40 mL 11/30/23 suspension albuterol sulfate 90 mcg/actuation 2 puff inhalation Q4-6H PRN 12/05/23 aerosol inhaler shortness of breath or wheezing #6.7 grams empagliflozin 10 mg tablet 10 mg PO DAILY #30 tabs 12/05/23 (Jardiance) fluticasone fur. 100 mcg-umeclid 1 inh inhalation DAILY #60 ea 12/05/23 62.5 mcg-vilant 25 mcg inhalat.powder (Trelegy Ellipta) blood sugar diagnostic #100 ea 12/09/23 blood-glucose meter #1 ea 12/09/23 lancets (Accu-Chek Softclix #100 ea 12/09/23 Lancets) losartan 25 mg tablet See Rx Instructions .Route 03/17/24 .COMPLEX #30 tabs losartan 25 mg tablet 25 mg PO DAILY #30 tabs 05/06/24 Allergies Allergy/AdvReac Type Severity Reaction Status Date / Time Penicillins (PENICILLINS) Allergy Unknown Rash Verified 05/06/24 14:14 [facility] Disclaimer: The information contained in this section may have been updated after the patient was seen, as this information can be updated by other users. Medical History Diabetes mellitus Hypertension COPD (chronic obstructive pulmonary disease) Surgical History History of colonoscopy Hx of cholecystectomy History of appendectomy Family History Other Family history of COPD (chronic obstructive pulmonary disease) Social History Smoking Status: Current every day smoker tobacco type: cigarettes packs per day: 1 second hand exposure: No alcohol intake: never substance use type: denies use current occupational status: other Travel in the last 8 weeks: None Have you lived/traveled outside [place] in past 30 days?: No Contact w/someone who lives/traveled outside [place] past 30 days?: No Exposure to someone with infectious disease in past 14 days?: No Do you have a fever (greater than 100.4 F or 38 C)?: No Have you tested positive for COVID-19: No Exposed to someone with COVID-19 in past 14 days?: No Do you have a sore throat?: No Do you have a cough?: No Do you have any weakness?: No Do you have any diarrhea?: No Are you experiencing any unusual bleeding?: No Do you have any muscle aches/pain?: No Do you have any abdominal pain?: No Are you experiencing loss of taste or smell?: No Other Medical History Have you received the Flu Vaccine for this season: Yes Have you received the Pneumonia Vaccine: Yes ROS Obtained: Yes All systems reviewed & no additional complaints except as documented Physical Exam General General appearance: alert and in no apparent distress Head Head exam: atraumatic and normocephalic Eye Eye exam: Present PERRL and EOMI ENT ENT exam: Present mucous membranes moist Neck Neck exam: Present normal inspection Chest Chest inspection: Present normal inspection and symmetric chest wall rise Respiratory Respiratory exam: Present normal lung sounds bilaterally, wheezes and other (Mild wheezes bilaterally, could correspond with patient's ongoing COPD); Absent respiratory distress Cardiovascular Cardiovascular exam: Present regular rate and normal rhythm Abdominal Exam Abdominal exam: Present soft; Absent tenderness, guarding, rebound or rigidity Extremities Exam Extremities exam: Present normal inspection, tenderness and other (Mild tenderness of patient to the right knee, patient moves extremity command, mild pain palpation to the right hand most specifically the third and fourth digits of the right hand otherwise moves extremities to command, otherwise neurovascular intact) Back Exam Back exam: Present tenderness and paraspinal tenderness Comment: Mild paraspinal tenderness of the lower lumbar spine, negative C-spine tenderness, negative T-spine tenderness Neurological Exam Neurological exam: Present alert and oriented X3 Psychiatric Psychiatric exam: Present normal affect Skin Skin exam: Present warm, dry and other (Superficial abrasions on the third and fourth digits of the distal phalanx on the right hand) Medical Decision Making Medical Records Medical records reviewed: Yes I reviewed the patient's medical records. Screening: Per USPSTF and CDC recommendations, given the prevalence of disease in our region, it is our hospital?s policy to screen for HIV and viral Hepatitis for all patients aged 18 and over and those with ongoing risk factors. Daniel Inquiry Pt receiving controlled substance: No Daniel was queried for this patient: No Vital Signs: 05/06/24 11:40 05/06/24 12:28 05/06/24 13:30 Temperature 98.7 F Temperature Source Oral Pulse Rate 85 76 Pulse Rate [Left Radial] 87 Respiratory Rate 20 Blood Pressure 182/94 H 205/117 H Blood Pressure [Right Arm] 198/89 H Blood Pressure Mean [Right Arm] 125 02 Sat by Pulse Oximetry 97 96 99 Oxygen Delivery Method Room Air Room Air Room Air 05/06/24 14:00 05/06/24 14:32 05/06/24 15:00 Temperature Temperature Source Pulse Rate 85 83 Pulse Rate [Left Radial] Respiratory Rate 18 15 22 Blood Pressure 172/91 H 160/97 H 153/101 H Blood Pressure [Right Arm] Blood Pressure Mean [Right Arm] 02 Sat by Pulse Oximetry 96 95 95 Oxygen Delivery Method Room Air Room Air Room Air Lab Data Lab results reviewed: Yes I reviewed the patient's lab results. Lab Results 05/06/24 : WBC 7.2, RBC 4.54 L, Hgb 13.3 L, Hct 39.0 L, MCV 85.9, MCH 29.3, MCHC 34.1, RDW 12.8, Plt Count 139 L, MPV 9.8, Neut % (Auto) 60.9, Lymph % (Auto) 24.2, [place] % (Auto) 10.1 H, Eos % (Auto) 3.1, Baso % (Auto) 1.1, Neut # (Auto) 4.4, Lymph # (Auto) 1.7, [place] # (Auto) 0.7, Eos # (Auto) 0.2, Baso # (Auto) 0.1, Sodium 136, Potassium 4.6, Chloride 105, Carbon Dioxide 21 L, Anion Gap 14.6, BUN 14, Creatinine 0.60 L, Estimated Creat Clear 91, Estimated GFR 134, Est GFR ( Amer) 163, Glucose 238 H, Calcium 8.7, Magnesium 1.7, Total Bilirubin 0.5, AST 33, ALT 23, Alkaline Phosphatase 203 H, Troponin I < 0.01, NT-Pro-B Natriuret Pep 253 H, Total Protein 6.9, Albumin 4.0, Globulin 2.9, Albumin/Globulin Ratio 1.4 05/06/24 Unknown 05/06/24 Unknown Orders (Tests/Meds): ED MEDICATIONS Discontinued Medications Generic Name Dose Route Start Last Admin Trade Name Freq PRN Reason Stop Dose Admin Bacitracin 1 gm 05/06/24 14:22 Bacitracin Zinc Oint 30gm Tube TP 05/06/24 14:23 ONCE ONE Hydralazine HCl 10 mg 05/06/24 14:02 05/06/24 14:18 Hydralazine 20mg/Ml Vial IV 05/06/24 14:03 10 mg ONCE ONE Administration ORDERS Category Date Time Status CT cervical spine wo con Stat Cat Scan 05/06/24 12:[address] head/brain wo con Stat Cat Scan 05/06/24 12:[address] lumbar spine wo con Stat Cat Scan 05/06/24 12:12 Completed XR chest portable Stat Exams 05/06/24 12:12 Completed XR hand RT min 3V Stat Exams 05/06/24 12:13 Completed XR knee RT 2V Stat Exams 05/06/24 12:12 Completed Complete Blood Count Auto Diff Stat Lab 05/06/24 Completed Comprehensive Metabolic Panel Stat Lab 05/06/24 Completed Magnesium Stat Lab 05/06/24 Completed NT Pro Brain Natriuretic Pep. Stat Lab 05/06/24 Completed Troponin I Q3H Lab 05/06/24 17:00 Ordered Troponin I Q3H Lab 05/06/24 20:00 Ordered Troponin I Stat Lab 05/06/24 Completed Medical Decision Narrative: 69-year-old male presents to the emergency department for a fall that occurred last night, he endorses dizziness and going on for some time, complains of right knee pain right hand pain, differential diagnose, not limited to closed head injury, right hand sprain/strain, hand fracture, metacarpal fracture, phalangeal fracture, knee sprain/strain, knee fracture, acute SDH, traumatic SAH, L-spine fracture, acute lumbar sacral strain, cardiac arrhythmia, electrolyte disturbance. I discussed patient case with attending physician Basic laboratory studies, EKG, will obtain chest x-ray right hand x-ray right knee x-ray, CT head without contrast, CT cervical spine without contrast CT lumbar spine without contrast further evaluation as characterization. Thrombocytopenia 139, unsure of chronicity CMP notable for hyperglycemia 238 otherwise unremarkable. Patient blood pressure is staying persistently elevated over 200 systolic, will give 10 mg IV hydralazine, and obtain troponin and proBNP for further evaluation, could be the cause of patient's dizziness is his uncontrolled high blood pressure, without his antihypertensive medications. Will also do bacitracin for abrasions on the patient's distal aspect of his third and fourth digits of the right hand Troponin within normals, proBNP is minimally elevated at [address] cervical spine without contrast was reviewed along with corresponding radiologic report degenerative disc disease as above without acute bony abnormality I reviewed the patient CT head without contrast on the corresponding radiologic report atrophy and chronic changes without acute process I reviewed the patient's CT lumbar spine without contrast on the corresponding radiologic report, multilevel degenerative changes and neuroforaminal compromise as above, which does is appear chronic. Reviewed the patient's right hand x-ray along the corresponding radiologic report no acute process. The patient's chest x-ray along the corresponding radiologic report no acute process I reviewed the patient right knee x-ray along with corresponding radiologic report no acute process. I discussed the results with the patient and family at the bedside patient and family in agreement with current treatment plan/discharge plan. Patient blood pressure improved to 150 systolic, I will refill patient's chronic medications. Will need to follow-up PCP as directed, patient voiced understand agree with current treatment plan/discharge plan. Critical Care Critical Care Time Critical Care Time: No
--- NOTE | 2024-05-06 12:31 | ECG_ITS ---
APPROVED REPORT Exam: Resting ECG HR:78 bpm ECG Measurements Heart Rate 78 AXES SD 250 P 53 QRSd 107 QRS 3 QT 379 T 24 QTc 412 Conclusion SINUS RHYTHM WITH FIRST DEGREE AV BLOCK POSSIBLE LEFT ATRIAL ENLARGEMENT [-0.1mV P-WAVE IN V1/V2] ABNORMAL ECG UNCONFIRMED REPORT Electronically signed by : KARI TRIPATHI, 05/09/2024 07:00:17
[2024-05-06 13:02] LABS: Basophils # 0.1 K/mm3 (0-0.2); Basophils % 1.1 % (0.1-2.0); Eosinophils # 0.2 K/mm3 (0.0-0.4); Eosinophils % 3.1 % (0.1-12.0); Hemoglobin 13.3 g/dL (14.1-18.0); Lymphocytes # 1.7 K/mm3 (0.7-4.5); Lymphocytes % 24.2 % (10-50); Mean Corpuscular HGB Conc 34.1 g/dL (31.8-35.4); Mean Corpuscular Hemoglobin 29.3 pg (27.0-31.2); Mean Corpuscular Volume 85.9 fl (80-94); Mean Platelet Volume 9.8 fl (7.4-10.4); Monocytes # 0.7 K/mm3 (0.1-1.0); Monocytes % 10.1 % (1.7-9.3); Neutrophils # 4.4 K/mm3 (1.8-7.8); Neutrophils % 60.9 % (37.0-80.0); Platelet Count 139 K/mm3 (142-424); Red Blood Count 4.54 M/mm3 (4.60-6.20); Red Cell Distribution Width 12.8 % (11.5-17.5); White Blood Count 7.2 K/mm3 (4.8-10.8)
--- NOTE | 2024-05-06 13:02 | PC.NURSE ---
PT TO RADIOLOGY
--- NOTE | 2024-05-06 13:23 | PC.NURSE ---
PT RETURNED FROM RADIOLOGY
[2024-05-06 13:29] LABS: Chloride 105 mmol/L (98-107); Potassium 4.6 mmoL/L (3.5-5.1); Sodium 136 mmol/L (136-145)
[2024-05-06 13:31] LABS: Blood Urea Nitrogen 14 mg/dl (9-20); Creatinine Clearance Estimated 91 mL/min (50-200); Estimated Glomerular Filt Rate 134 ml/min (>60); GFR (African American) 163 ML/MIN (>60)
[2024-05-06 13:32] LABS: Alanine Aminotransferase 23 U/L (12-78); Albumin/Globulin Ratio 1.4 (1.1-1.8); Alkaline Phosphatase 203 U/L (38-126); Anion Gap 14.6 mEq/L (5-15); Aspartate Amino Transferase 33 U/L (17-59); Bilirubin,Total 0.5 mg/dl (0.2-1.3); Calcium 8.7 mg/dl (8.4-10.2); Carbon Dioxide 21 mmol/L (22.0-30.0); Globulin 2.9 g/dL (1.3-3.2); Glucose 238 mg/dl (74-100); Magnesium 1.7 mg/dl (1.6-2.3); Total Protein,Serum 6.9 g/dl (6.3-8.2)
[2024-05-06] MEDS: HYDRALAZINE 20MG/ML VIAL 10 MG IV (14:18)
--- NOTE | 2024-05-06 14:22 | PC.NURSE ---
Dietary called for a regular tray.
--- NOTE | 2024-05-06 14:30 | PC.NURSE ---
rounded on patient, resting quietly, waiting on rad results and ordered patient some food as he is diabetic and hasnt eaten all day. called dietary and ordered a tray
[2024-05-06 14:39] LABS: NT Pro Brain Natriuretic Pep. 253 pg/mL (0-125)
[2024-05-06 14:41] LABS: Troponin I < 0.01 ng/ml (0.00-0.034)
[2024-05-06] MEDS: BACITRACIN ZINC OINT 30GM TUBE TP (15:22)
== END 2024-05-06 15:29 | disposition home or self-care (01) ==
PROVIDERS: Physician Assistant; Emergency Provider Student in an Organized Health Care Education/Training Program; PCP Nurse Practitioner Family
DX: R42 Dizziness and giddiness (principal); M25.561 Pain in right knee; M54.50 Low back pain, unspecified; M79.641 Pain in right hand; R03.0 Elevated blood-pressure reading, without diagnosis of hypertension; F17.210 Nicotine dependence, cigarettes, uncomplicated; Z71.6 Tobacco abuse counseling; W00.0XXA Fall on same level due to ice and snow, initial encounter; Y93.89 Activity, other specified; Y92.007 Garden or yard of unspecified non-institutional (private) residence as the place of occurrence of the external cause
CPT/HCPCS: 70450; 71045; 72125; 72131; 73130; 73560; 80053; 83735; 83880; 84484; 85025; 93005; 96374; 99284; J0360

== ENCOUNTER 2024-07-04 20:48 | Emergency (ER) | payer MEDICARE, SELFPAY ==
[2024-07-04 20:57] VITALS: BP 172/80; PULSE 89; RESP 18; TEMP 36.6; O2SAT 100; BMI 31.0
[2024-07-04 21:30] VITALS: BP 186/93; PULSE 87; O2SAT 92
--- NOTE | 2024-07-04 21:31 | XR_ITS ---
PROCEDURE INFORMATION: Exam: XR Left Foot Exam date and time: 07/04/2024 10:03 PM Age: 69 years old Clinical indication: Other: Mtp, great toe pain b/l TECHNIQUE: Imaging protocol: Radiologic exam of the left foot. Views: 3 or more views. COMPARISON: CR XR FOOT LT MIN 3V 01/26/2020 8:48 PM FINDINGS: Bones/joints: Minimal degenerative attenuation 1st MTP joint space. Soft tissues: Normal. IMPRESSION: No acute findings. 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
--- NOTE | 2024-07-04 21:31 | XR_ITS ---
PROCEDURE INFORMATION: Exam: XR Right Foot Exam date and time: 07/04/2024 10:03 PM Age: 69 years old Clinical indication: Other: Mtp, great toe pain b/l TECHNIQUE: Imaging protocol: Radiologic exam of the right foot. Views: 3 or more views. COMPARISON: CR XR ANKLE RT MIN 3V 12/23/2018 7:06 PM FINDINGS: Bones/joints: Mild degenerative change osteoarthritis 1st MTP joint. Chronic appearing irregularity lateral sesamoid. Soft tissues: Normal. IMPRESSION: Mild degenerative change 1st MTP joint and lateral sesamoid.
--- NOTE | 2024-07-04 21:34 | [facility].EDGENADL ---
Discharge Plan Disposition Patient Disposition: Home, Self-Care Condition: Good Prescriptions Prescriptions: No Action metformin 500 mg tablet 500 mg PO BID Qty: 60 2RF rosuvastatin 10 mg tablet 10 mg PO DAILY Qty: 30 2RF cholecalciferol (vitamin D3) 1,250 mcg (50,000 unit) capsule 1,250 mcg PO WEEKLY Qty: 10 0RF Trelegy Ellipta 100-62.5-25 mcg blister with device 1 inh inhalation DAILY Qty: 60 3RF Jardiance 10 mg tablet 10 mg PO DAILY Qty: 30 2RF albuterol sulfate 90 mcg/actuation HFA aerosol inhaler 2 puff inhalation Q4-6H PRN (Reason: shortness of breath or wheezing) Qty: 6.7 1RF (DME) blood-glucose meter Kit See Rx Instructions .Route Qty: 1 0RF Rx Instructions: As directed once daily (DME) lancets [Accu-Chek Softclix Lancets] Misc See Rx Instructions .Route Qty: 100 3RF Rx Instructions: As directed once daily (DME) blood sugar diagnostic Strip See Rx Instructions .Route Qty: 100 3RF Rx Instructions: As directed once daily losartan 25 mg tablet See Rx Instructions .ROUTE .COMPLEX Qty: 90 0RF Dose Instruction: Take 1 tablet by mouth once daily Rx Instructions: Take 1 tablet by mouth once daily nystatin 100,000 unit/mL suspension 1 ml PO QID 10 Days Qty: 40 0RF Rx Instructions: swish and swallow losartan 25 mg tablet 25 mg PO DAILY Qty: 30 0RF Referrals Follow up/Referrals: Elizabeth Mensah APRN [Primary Care Provider] - See instructions Delma Loera DPM [Staff Physician] - See instructions (bilateral feet pain, OA, poorly controlled DM) Activity Restrictions/Add. Instructions Additional Instructions/Restrictions: You were evaluated in the ER and are believed to be appropriate for discharge at this time. Continue all home medications as prescribed. Please call Dr. Loera's office for close outpatient follow-up for your feet. Also follow-up closely with your primary care doctor to gain better control of your diabetes. Return to the ER with any new, worsening, or otherwise concerning symptoms. Clinical Impressions Clinical Impression: Bilateral foot pain, Hyperglycemia Print Language Print Language: Citizen Of [place] Discharge ED Provider: Danny Lovell General Adult HPI <Danny Lovell MD - Last Filed: 07/04/24 22:55> General Chief complaint: PAIN Stated complaint: both feet swollen,difficulty walking Time Seen by Provider: 07/04/24 21:05 Mode of Arrival: Ambulatory Source of Information: Patient Description of Symptoms (Recalled from ER Triage Doc. by RN): pt presents for evaluation of bilateral feet swelling and pain x couple days History of Present Illness HPI narrative: Patient is a 69-year-old male with past medical history of diabetes who presents emergency department for evaluation of bilateral great toe pain. Onset was acute, over the last 48 hours. He is frequently on his feet and has had pain similar to this before however it is subsided and research causing him to become concerned and present here for continued evaluation. No trauma. No other acute complaints at this time Please note that above description of symptoms, in this electronic medical record under categorization of recalled from ER triage doctor by RN are reflective of an initial nursing assessment, however, is not reflective of my full history and physical exam that was personally taken and clarified. Consequentially, this preceding description of symptoms, which may include the patient's categorized chief complaint in the EMR, do not reflect my personal clinical impression, and the ultimate description of history of present illness and patient stated complaints should be deferred to this section of the note. Unless stated otherwise or congruent with this section of the note, additional signs, symptoms, or incongruence should be interpreted as inaccurate with my clinical impression. Related Data Previous Rx's ?Medication ?Instructions ?Recorded cholecalciferol (vitamin D3) 1,250 1,250 mcg PO WEEKLY #10 caps 04/15/23 mcg (50,000 unit) capsule metformin 500 mg tablet 500 mg PO BID #60 tabs 04/15/23 rosuvastatin 10 mg tablet 10 mg PO DAILY #30 tabs 04/15/23 nystatin 100,000 unit/mL oral 1 ml PO QID 10 days #40 mL 11/30/23 suspension albuterol sulfate 90 mcg/actuation 2 puff inhalation Q4-6H PRN 12/05/23 aerosol inhaler shortness of breath or wheezing #6.7 grams empagliflozin 10 mg tablet 10 mg PO DAILY #30 tabs 12/05/23 (Jardiance) fluticasone fur. 100 mcg-umeclid 1 inh inhalation DAILY #60 ea 08/30/24 62.5 mcg-vilant 25 mcg inhalat.powder (Trelegy Ellipta) blood sugar diagnostic #100 ea 12/09/23 blood-glucose meter #1 ea 12/09/23 lancets (Accu-Chek Softclix #100 ea 12/09/23 Lancets) losartan 25 mg tablet 25 mg PO DAILY #30 tabs 05/06/24 losartan 25 mg tablet See Rx Instructions .Route 06/15/24 .COMPLEX #90 tabs Allergies Allergy/AdvReac Type Severity Reaction Status Date / Time Penicillins (PENICILLINS) Allergy Unknown Rash Verified 05/06/24 14:14 [facility] <Danny Lovell MD - Last Filed: 07/04/24 22:55> [facility] Disclaimer: The information contained in this section may have been updated after the patient was seen, as this information can be updated by other users. Medical History Diabetes mellitus Hypertension COPD (chronic obstructive pulmonary disease) Surgical History History of colonoscopy Hx of cholecystectomy History of appendectomy Family History Other Family history of COPD (chronic obstructive pulmonary disease) Social History Smoking Status: Former smoker tobacco type: cigarettes packs per day: 1 second hand exposure: No alcohol intake: never substance use type: denies use current occupational status: other Travel in the last 8 weeks: None Have you lived/traveled outside [place] in past 30 days?: No Contact w/someone who lives/traveled outside US past 30 days?: No Exposure to someone with infectious disease in past 14 days?: No Do you have a fever (greater than 100.4 F or 38 C)?: No Have you tested positive for COVID-19: No Exposed to someone with COVID-19 in past 14 days?: No Do you have a sore throat?: No Do you have a cough?: No Do you have any weakness?: No Do you have any diarrhea?: No Are you experiencing any unusual bleeding?: No Do you have any muscle aches/pain?: No Do you have any abdominal pain?: No Are you experiencing loss of taste or smell?: No Other Medical History Have you received the Flu Vaccine for this season: Yes Have you received the Pneumonia Vaccine: Yes <Danny Lovell MD - Last Filed: 07/04/24 22:55> ROS Obtained: Yes Systems reviewed as appropriate & no additional complaints except as documented Physical Exam <Danny Lovell MD - Last Filed: 07/04/24 22:55> General General appearance: alert and in no apparent distress Head Head exam: atraumatic and normocephalic Eye Eye exam: Present PERRL ENT ENT exam: Present mucous membranes moist Neck Neck exam: Present normal inspection Chest Chest inspection: Present normal inspection and symmetric chest wall rise Respiratory Respiratory exam: Absent respiratory distress Cardiovascular Cardiovascular exam: Present regular rate and normal rhythm Abdominal Exam Abdominal exam: Present soft Extremities Exam Extremities exam: Present other (Dorsal pedal pulses bilaterally palpable, no significant edema. Decreased sensation over the plantar aspect of the digits of the feet. Brisk capillary refill in all digits. Diffuse subungual hyperkeratosis. No fluctuance.); Absent normal inspection Neurological Exam Neurological exam: Present alert Psychiatric Psychiatric exam: Present normal affect Skin Skin exam: Present warm and dry Medical Decision Making <Danny Lovell MD - Last Filed: 07/04/24 22:55> Medical Records Screening: Per USPSTF and CDC recommendations, given the prevalence of disease in our region, it is our hospital?s policy to screen for HIV and viral Hepatitis for all patients aged 18 and over and those with ongoing risk factors. Daniel Inquiry Pt receiving controlled substance: No Vital Signs: 07/04/24 20:57 07/04/24 21:15 07/04/24 21:30 Temperature 97.9 F Temperature Source Oral Pulse Rate 87 Pulse Rate [Right] 89 Respiratory Rate 18 Blood Pressure 186/93 H Blood Pressure [Right Arm] 172/80 H Blood Pressure Mean [Right Arm] 110 Blood Pressure Source [Right Arm] Automatic Cuff Blood Pressure Position [Right Arm] Sitting 02 Sat by Pulse Oximetry 100 92 L Oxygen Delivery Method Room Air Room Air Lab Data Lab Results 07/04/24 21:11: WBC 7.0, RBC 4.49 L, Hgb 13.9 L, Hct 38.9 L, MCV 86.6, MCH 31.0, MCHC 35.7 H, RDW 13.1, Plt Count 197, MPV 10.5 H, Neut % (Auto) 64.3, Lymph % (Auto) 23.7, [place] % (Auto) 8.8, Eos % (Auto) 2.4, Baso % (Auto) 0.7, Neut # (Auto) 4.5, Lymph # (Auto) 1.7, [place] # (Auto) 0.6, Eos # (Auto) 0.2, Baso # (Auto) 0.1, Sodium 136, Potassium 4.2, Chloride 102, Carbon Dioxide 24, Anion Gap 14.2, BUN 15, Creatinine 0.80, Estimated Creat Clear 97, Estimated GFR 96, Est GFR ( Amer) 117, Glucose 392 H, Hemoglobin A1c 10.0 H, Calcium 9.1, Total Bilirubin 0.5, AST 30, ALT 23, Alkaline Phosphatase 225 H, Total Protein 7.6, Albumin 4.4, Globulin 3.2, Albumin/Globulin Ratio 1.4, Acetone Level None detected 07/04/24 21:11 07/04/24 21:11 Orders (Tests/Meds): ED MEDICATIONS Discontinued Medications Generic Name Dose Route Start Last Admin Trade Name Freq PRN Reason Stop Dose Admin Ibuprofen 800 mg 07/04/24 21:31 07/04/24 21:36 Ibuprofen 400 Mg Tablet PO 07/04/24 21:32 800 mg ONCE ONE Administration ORDERS Category Date Time Status Foot XR left minimum 3 views [XR foot LT min 3V] Stat Exams 07/04/24 21:31 Completed Foot XR right minimum 3 views [XR foot RT min 3V] Stat Exams 07/04/24 21:31 Completed Acetone, Serum (Rapid) Stat Lab 07/04/24 21:11 Completed CBC w/Auto Diff [Complete Blood Count Auto Diff] Stat Lab 07/04/24 21:11 Completed CMP [Comprehensive Metabolic Panel] Stat Lab 07/04/24 21:11 Completed Hemoglobin A1C Stat Lab 07/04/24 21:11 Completed Medical Decision Narrative: In summary patient is 69-year-old male with past medical history described above presents emerged part for bilateral great toe pain. Patient is hemodynamically stable nontoxic-appearing upon arrival, afebrile. Patient has diabetes and I suspect he has a component of diabetic neuropathy with deconditioning in his feet superimposed by bad hygiene and subungual hyperkeratosis. No concern for bacterial skin and soft tissue infection based on physical exam. Screening for underlying bony problems will be conducted with plain films. Initial inventions include ibuprofen. Fingerstick will be conducted given his history of diabetes. Fingerstick conducted and was in the 300s therefore workup for decompensated diabetes will be conducted with hematologic labs. X-rays conducted in my informal [employer] sql [employer] no obvious bony pathology formal reads pending as well as hematologic labs at time of transfer of care to the oncoming physician, Dr. Galeas <Ashtyn Galeas MD - Last Filed: 07/04/24 23:40> Vital Signs: 07/04/24 20:57 07/04/24 21:15 07/04/24 21:30 Temperature 97.9 F Temperature Source Oral Pulse Rate 87 Pulse Rate [Right] 89 Respiratory Rate 18 Blood Pressure 186/93 H Blood Pressure [Right Arm] 172/80 H Blood Pressure Mean [Right Arm] 110 Blood Pressure Source [Right Arm] Automatic Cuff Blood Pressure Position [Right Arm] Sitting 02 Sat by Pulse Oximetry 100 92 L Oxygen Delivery Method Room Air Room Air Lab Data Lab Results 07/04/24 21:11: WBC 7.0, RBC 4.49 L, Hgb 13.9 L, Hct 38.9 L, MCV 86.6, MCH 31.0, MCHC 35.7 H, RDW 13.1, Plt Count 197, MPV 10.5 H, Neut % (Auto) 64.3, Lymph % (Auto) 23.7, [place] % (Auto) 8.8, Eos % (Auto) 2.4, Baso % (Auto) 0.7, Neut # (Auto) 4.5, Lymph # (Auto) 1.7, [place] # (Auto) 0.6, Eos # (Auto) 0.2, Baso # (Auto) 0.1, Sodium 136, Potassium 4.2, Chloride 102, Carbon Dioxide 24, Anion Gap 14.2, BUN 15, Creatinine 0.80, Estimated Creat Clear 97, Estimated GFR 96, Est GFR ( Amer) 117, Glucose 392 H, Hemoglobin A1c 10.0 H, Calcium 9.1, Total Bilirubin 0.5, AST 30, ALT 23, Alkaline Phosphatase 225 H, Total Protein 7.6, Albumin 4.4, Globulin 3.2, Albumin/Globulin Ratio 1.4, Acetone Level None detected Orders (Tests/Meds): ED MEDICATIONS Discontinued Medications Generic Name Dose Route Start Last Admin Trade Name Shayan PRN Reason Stop Dose Admin Ibuprofen 800 mg 07/04/24 21:31 07/04/24 21:36 Ibuprofen 400 Mg Tablet PO 07/04/24 21:32 800 mg ONCE ONE Administration ORDERS Category Date Time Status Foot XR left minimum 3 views [XR foot LT min 3V] Stat Exams 07/04/24 21:31 Completed Foot XR right minimum 3 views [XR foot RT min 3V] Stat Exams 07/04/24 21:31 Completed Acetone, Serum (Rapid) Stat Lab 07/04/24 21:11 Completed CBC w/Auto Diff [Complete Blood Count Auto Diff] Stat Lab 07/04/24 21:11 Completed CMP [Comprehensive Metabolic Panel] Stat Lab 07/04/24 21:11 Completed Hemoglobin A1C Stat Lab 07/04/24 21:11 Completed Medical Decision Narrative: In summary patient is 69-year-old male with past medical history described above presents emerged part for bilateral great toe pain. Patient is hemodynamically stable nontoxic-appearing upon arrival, afebrile. Patient has diabetes and I suspect he has a component of diabetic neuropathy with deconditioning in his feet superimposed by bad hygiene and subungual hyperkeratosis. No concern for bacterial skin and soft tissue infection based on physical exam. Screening for underlying bony problems will be conducted with plain films. Initial inventions include ibuprofen. Fingerstick will be conducted given his history of diabetes. Fingerstick conducted and was in the 300s therefore workup for decompensated diabetes will be conducted with hematologic labs. X-rays conducted in my informal [employer] no obvious bony pathology formal reads pending as well as hematologic labs at time of transfer of care to the oncoming physician, Dr. Galeas Galeas: Upon my assumption of care patient is stable, resting comfortably. I agree with the assessment and plan from Dr. Lovell. I reviewed labs which demonstrate patient is not in DKA, normal anion gap, and negative acetone. He has hyperglycemia consistent with his known poorly controlled diabetes. Bilateral foot x-rays had been personally interpreted by me demonstrating degenerative changes but no obvious acute pathology. See radiology reads for final interpretations which are in agreement. Patient is appropriate for discharge at this time. He has been referred to Dr. Loera with podiatry for close outpatient follow-up. I also instructed him to continue all home medications and monitor and manage his diabetes more consistently including close outpatient follow-up with his PCP. He was given return precautions for the ER. He indicated understanding and the patient was discharged in stable condition Critical Care <Danny Lovell MD - Last Filed: 07/04/24 22:55> Critical Care Time Critical Care Time: No
[2024-07-04] MEDS: IBUPROFEN 400 MG TABLET 800 MG PO (21:36)
[2024-07-04 23:00] LABS: Basophils # 0.1 K/mm3 (0-0.2); Basophils % 0.7 % (0.1-2.0); Eosinophils # 0.2 K/mm3 (0.0-0.4); Eosinophils % 2.4 % (0.1-12.0); Hematocrit 38.9 % (42.0-52.0); Hemoglobin 13.9 g/dL (14.1-18.0); Lymphocytes # 1.7 K/mm3 (0.7-4.5); Lymphocytes % 23.7 % (10-50); Mean Corpuscular HGB Conc 35.7 g/dL (31.8-35.4); Mean Corpuscular Volume 86.6 fl (80-94); Mean Platelet Volume 10.5 fl (7.4-10.4); Monocytes # 0.6 K/mm3 (0.1-1.0); Monocytes % 8.8 % (1.7-9.3); Neutrophils # 4.5 K/mm3 (1.8-7.8); Neutrophils % 64.3 % (37.0-80.0); Platelet Count 197 K/mm3 (142-424); Red Blood Count 4.49 M/mm3 (4.60-6.20); Red Cell Distribution Width 13.1 % (11.5-17.5)
[2024-07-04 23:02] LABS: Acetone, Serum (Rapid) None Detected (None Detect); Albumin Level 4.4 g/dl (3.5-5.0); Chloride 102 mmol/L (98-107); Potassium 4.2 mmoL/L (3.5-5.1); Sodium 136 mmol/L (136-145)
[2024-07-04 23:04] LABS: Blood Urea Nitrogen 15 mg/dl (9-20); Creatinine Clearance Estimated 97 mL/min (50-200); Estimated Glomerular Filt Rate 96 ml/min (>60); GFR (African American) 117 ML/MIN (>60)
[2024-07-04 23:05] LABS: Alanine Aminotransferase 23 U/L (12-78); Albumin/Globulin Ratio 1.4 (1.1-1.8); Alkaline Phosphatase 225 U/L (38-126); Anion Gap 14.2 mEq/L (5-15); Aspartate Amino Transferase 30 U/L (17-59); Bilirubin,Total 0.5 mg/dl (0.2-1.3); Calcium 9.1 mg/dl (8.4-10.2); Carbon Dioxide 24 mmol/L (22.0-30.0); Globulin 3.2 g/dL (1.3-3.2); Glucose 392 mg/dl (74-100); Total Protein,Serum 7.6 g/dl (6.3-8.2)
[2024-07-04 23:41] VITALS: BP 158/79; PULSE 78; RESP 14; TEMP 36.6; O2SAT 96
== END 2024-07-04 23:42 | disposition home or self-care (01) ==
PROVIDERS: Emergency Provider Emergency Medicine; PCP Nurse Practitioner Family
DX: E11.65 Type 2 diabetes mellitus with hyperglycemia (principal); R22.43 Localized swelling, mass and lump, lower limb, bilateral; M79.674 Pain in right toe(s); M79.675 Pain in left toe(s); J44.9 Chronic obstructive pulmonary disease, unspecified; Z87.891 Personal history of nicotine dependence
CPT/HCPCS: 73630; 80053; 82009; 83036; 85025; 99283

== ENCOUNTER 2024-09-10 11:11 | Emergency (ER) | payer MEDICARE, SELFPAY ==
[2024-09-10] VITALS (8 sets, daily range): BP systolic 146–195; BP diastolic 76–105; PULSE 84–97; RESP 17; TEMP 36.8–37; O2SAT 94–98; BMI 28.0
--- OUTSIDE RECORDS SUMMARY | 2024-09-10 11:21 | XMS_ITS | Clinical Summary ---
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 Name Role Phone Nima Coleman MD Primary Care Physician [ ] Conditions or Problems Problem Name Problem Code Onset Date Status Entry Date Provider Comment Standard Description Annotate Peripheral vascular disease 867346759 (SNOMED CT) 06/15 Active 06/15 Nima Coleman MD Peripheral vascular disease Depression 14919287 (SNOMED CT) 06/15 Active 06/15 Nima Coleman MD Depressive disorder SEBACEOUS CYST 978077683 (SNOMED CT) 11/16 Active 11/16 Nima Coleman MD Epidermoid cyst of skin FOOT PAIN, BILATERAL M79.609 (ICD-10-CM ) 08/18 Active 08/18 Nima Coleman MD Pain in unspecified limb History of DM TYPE 2 CONTROL E11.9 (ICD-10-CM ) 08/18 Active 08/18 Nima Coleman MD Type 2 diabetes mellitus without complications BP HIGH NO HTN R03.0 (ICD-10-CM ) 08/03 Active 08/03 Nima Coleman MD Elevated blood-pressure reading, without diagnosis of hypertension OBESITY NOS 202736677 (SNOMED CT) 08/03 Active 08/03 Nima Coleman MD Obesity RESTLESS LEG SYNDROME 67856359 (SNOMED CT) 08/03 Active 08/03 Nima Coleman MD Restless legs VITAMIN D DEFICIENCY 63389116 (SNOMED CT) 04/20 Active 04/20 Nima Coleman MD Vitamin D deficiency TOBACCO USE DIS F17.200 (ICD-10-CM ) 06/26 Active 06/26 Nima Coleman MD Nicotine dependence, unspecified, uncomplicated PERIPHERAL EDEMA 821880101 (SNOMED CT) 06/26 Active 06/26 Nima Coleman MD Peripheral edema GERD 159969955 (SNOMED CT) 06/26 Active 06/26 Nima Coleman MD Gastroesophageal reflux disease COPD 40550285 (SNOMED CT) 06/26 Active 06/26 Nima Coleman MD Chronic obstructive pulmonary disease HYPERLIPIDEMI A 97770223 (SNOMED CT) Active 06/14 Leann Stewart Hyperlipidemia History of OBSTRUCTIVE SLEEP APNEA 57605132 (SNOMED CT) Active 06/14 Leann Stewart Obstructive sleep apnea syndrome Medications Medication Instructions Start Date Stop Date Generic Name ND Provider ADVAIR HFA 115-21 MCG/ACT AERO 2 PUFFS Q12H FLUTICASONE-SALME TEROL 97399347743 Nima Coleman MD KLOR-CON M20 20 MEQ CR-TABS 1 tab daily POTASSIUM CHLORIDE JESUS CR 56713522869 Nima Coleman MD PAXIL 20 MG TABS 1 TAB DAILY PAROXETINE HCL 81295501353 Nima Coleman MD CILOSTAZOL 100 MG TABS Take 1 tablet by mouth twice a day CILOSTAZOL 09751132613 Nima Coleman MD LANCETS MICRO THIN 33G FOR GLUC TESTING 1-2 TIMES / DAY LANCETS 73393552528 Nima Coleman MD RELION CONFIRM/MICRO TEST STRP FOR GLUC TESTING 1-2 TIMES / DAY GLUCOSE BLOOD 68751137245 Nima SETH CONFIRM GLUCOSE MONITOR w/Device KIT USE FOR CHECKING GLUC 1-2 TIMES / DAY BLOOD GLUCOSE MONITORING SUPPL 12079206971 Nima Coleman MD PAXIL 10 MG TABS 1 TAB DAILY PAROXETINE HCL 95059114784 Nima Coleman MD SIMVASTATIN 40 MG TABS qd SIMVASTATIN 80890135538 Nima Coleman MD METFORMIN HCL 500 MG TABS Take 1 tablet by mouth twice a day with breakfast and dinner METFORMIN HCL 92455989738 Nima Coleman MD VITAMIN D3 125 MCG (5000 UT) TABS 1 TAB DAILY CHOLECALCIFEROL 64469683516 Nima Coleman MD B-12 1000 MCG CAPS Take 1 capsule by mouth daily CYANOCOBALAMIN 88074938197 Nima Coleman MD VITAMIN D3 1.25 MG (67738 UT) CAPS Take 1 capsule by mouth daily CHOLECALCIFEROL 07351338463 Nima Coleman MD RANITIDINE HCL 150 MG ORAL TABLET 1 TAB QAM & 1 QHS RANITIDINE HCL 73682859793 Nima Coleman MD PROTONIX 40 MG PACK 1 TAB DAILY 08/03 PANTOPRAZOLE SODIUM 25113002008 Nima Coleman MD REQUIP 1 MG ORAL TABLET 1 TAB QHS ROPINIROLE HCL 80754157965 Nima Coleman MD VENTOLIN HFA 108 (90 Base) MCG/ACT AERS 2 PUFFS Q4H PRN ALBUTEROL SULFATE 13827109930 Nima Coleman MD PROTONIX 40 MG PACK 1 TAB DAILY PANTOPRAZOLE SODIUM 45192279189 Nima Coleman MD SYMBICORT 80-4.5 MCG/ACT AERO 2 PUFFS BID BUDESONIDE-FORMOT SHARDA FUMARATE 25183274280 Nima Coleman MD LASIX 40 MG TABS bid FUROSEMIDE 46962946325 Nima Coleman MD SYMBICORT 80-4.5 MCG/ACT AERO 2 PUFFS BID 10/02 BUDESONIDE-FORMOT SHARDA FUMARATE 21363200168 Preston Delatorre VENTOLIN HFA 108 (90 Base) MCG/ACT AERS 1-2 puffs qid prn 10/02 ALBUTEROL SULFATE 64522560958 Preston Delatorre REQUIP 1 MG ORAL TABLET 1 po qhs 10/02 ROPINIROLE HCL 72489464648 Preston Delatorre REQUIP 0.5 MG ORAL TABLET 1 TAB 2 HRS BEFORE SLEEP X 14 DAYS; THEN 2 TABS OR #1 1 MG TAB QPM ROPINIROLE HCL 49626549119 Nima Coleman MD SYMBICORT 80-4.5 MCG/ACT AERO 2 PUFFS BID BUDESONIDE-FORMOT SHARDA FUMARATE 24049813005 Nima Coleman MD PROTONIX 40 MG PACK 1 QD PANTOPRAZOLE SODIUM 74382615830 Preston Delatorre PROVENTIL HFA 108 (90 Base) MCG/ACT INHALATION AEROSOL SOLUTION ALBUTEROL SULFATE 82114873505 Nima Coleman MD ASPIRIN LOW DOSE TBEC ASPIRIN TBEC 25771462851 Nima Coleman MD K-DONOVAN 20 MEQ PACK 1 TAB QD POTASSIUM CHLORIDE Nima Coleman MD SIMVASTATIN 40 MG TABS qd SIMVASTATIN 23509432034 Nima Coleman MD LASIX 40 MG TABS bid FUROSEMIDE 92980230224 Nima Coleman MD PROVENTIL HFA 108 (90 Base) MCG/ACT INHALATION AEROSOL SOLUTION 1-2 puffs q 4-6 hours prn cough/wheeze. 05/19 ALBUTEROL SULFATE 20162494549 Nithya [place]Air[place] COMMERCIAL PHOTOGRAPHER PROTONIX 40 MG PACK 1 po qd 05/19 PANTOPRAZOLE SODIUM 46192282036 Nithya [place] COMMERCIAL PHOTOGRAPHER K-DONOVAN 20 MEQ PACK 1 po qd 05/19 POTASSIUM CHLORIDE 12575905719 Nithya Van[place] COMMERCIAL PHOTOGRAPHER LASIX 40 MG TABS 1 po bid 05/19 FUROSEMIDE 16035706916 Nithya [place] COMMERCIAL PHOTOGRAPHER SIMVASTATIN 40 MG TABS 1 po qd 05/19 SIMVASTATIN 30769077783 Nithya [place] COMMERCIAL PHOTOGRAPHER Medications Administered No information available. 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 URIC ACID 4.2 mg/dL 4.0-8.0 N Urate [Mass /volume] in Serum or Plasma CO2 TOTAL 23 mmol/L 21-33 N carbon diox [place], serum, total BASOPHIL % 0.4 % N Basophils/ 100 leukocytes in Blood by Manual count % EOS AUTO 2.5 % N Eosinophil s/100 leukocytes in Blood by Automated count WBC K/UL 6.6 THOUSAND/UL 10*3/uL 3.8-10.8 N White Blood Cell (k/ul) Lab Report: COMPREHENSIVE ME TABOLIC PANEL, LIPID PANEL, LIPID PANEL, LIP ... HDLPLASMA 41 mg/dL >OR = 40 N Cholestero l in HDL [Mass/volume] in Serum or Plasma - mg/dL LDLPLASMA 132 mg/dL <130 H Cholesterol in LDL [Mass/volume] in Serum or Plasma - mg/dL PROTEIN FL 7800 mg/dL Units converted. See lab report for original value. N protein, total, body fluid Lab Report: Hemogram PLATELETS 199 X10(3)/MCL 10*3/mm 3 150-400 Platelets [#/volume] in Blood by Automated count RBC 4.51 X10(6)/MCL 10*6/mm 3 4.50-5.90 Erythrocytes [#/volume] in Blood by Automated count WBC COUNT 6.0 X10(3)/MCL 10*3/uL 4.0-11.0 leukocyte count, blood Lab Report: Glyco, Renal Topete el GFRAA >60 mL/min Glomerular Filtration rate PHOS CNC-RND 4.0 mg/dL 2.7-4.5 Phosphor us Concentratation-Ran dom CREATINE SER 1.0 mg/dL 0.7-1.3 creatine , serum CO2 PLSM/SER 30 MMOL/L 22-31 carbon d ioxide, serum or plasma Lab Report: Ferritin FERRITIN 159 ng/mL 10-355 Ferritin [Mass/volume] in Serum or Plasma Lab Report: BASIC METABOLIC PANEL W/eGFR, LIPID PANEL WITH REFLEX TO DIR ... PSA 1.2 ng/mL < OR = 4.0 N Prostate s pecific Ag [Mass/volume] in Serum or Plasma TRIG 316 <150 H Triglyceride [Mass/volume] in Serum or Plasma - mg/dL Lab Report: CBC (INCLUDES DI FF/PLT), COMPREHENSIVE METABOLIC PANEL, QUES ... B12 296 pg/mL 200-1100 N Cobalamin (V itamin B12) [Mass/volume] in Serum or Plasma TSHREFLX FT4 1.48 m[iU]/L 0.40-4.50 N TSH (t hyroid stimulating hormone) with reflex FT4 Office Visit: f/u med Room 8 --LABS complete LDL GOAL <100 mg/dL LDL target l evel Lab Report: COMPREHENSIVE ME TABOLIC PANEL, DIRECT LDL, HEMOGLOBIN A1c, L ... TRIGLYCRDES 429 mg/dL <150 H Triglycer [place] [Mass/volume] in Serum or Plasma - mg/dL TLDLDIR 109 mg/dL <130 N Cholesterol i n LDL [Mass/volume] in Serum or Plasma - mg/dL BG RANDOM 93 mg/dL 65-99 N Glucose [Mass/volume] in Blood Lab Report: LIPID PANEL WITH REFLEX TO DIRECT LDL, LIPID PANEL WITH REFL ... HGBA1C 6.7 % OF TOTAL HGB % <5.7 H Hemoglobin A1c/Hemoglobin, total in Blood - % VIT D 25-OH 14 ng/mL 30-100 L 25-Hydrox ycalcifero l [Mass/volume] in Serum or Plasma TSH 1.49 u[iU]/m L 0.40-4.50 N Thyrotropin [Units/volume] in Serum or Plasma BASO % MANU 0.4 % N basophils as percent of blood leukocytes, manual count EOS % MANU 2.9 % N eosinophil s as percent of blood leukocytes, manual count MONOCYTE % 7.2 % N Monocytes/ 100 leukocytes in Blood by Automated count LYMPH% P BLD 27.0 % N lymphocy carmen as percent of blood leukocytes PMN % 62.5 % N Neutrophils/1 00 leukocytes in Blood by Automated count ABS BASOS 29 {Cells} /uL 0-200 N Basophils [#/volume] in Blood ABS EOS 212 {Cells} /uL 15-500 N Eosinophils [#/volume] in Blood ABS MONOS 526 {Cells} /uL 200-950 N Monocytes [#/volume] in Blood ABSLYMPHCT 1971 {Cells} /uL 850-3900 N Lymphocytes [#/volume] in Blood ABS NEUTROPH 4563 CELLS/UL 10*3/uL 1238-3415 N Neutrophils [#/volume] in Blood MPV 8.0 fL 7.5-11.5 N Platelet han n volume [Entitic volume] in Blood by Shilpa PLATELETK/UL 208 THOUSAND/UL 10*3/uL 140-400 N platelet count RDW 14.4 % 11.0-15.0 N Erythrocyte distribution width [Ratio] by Automated count OL-MCHC 33.7 g/dL 32.0-36.0 N mean corpus cular hemoglobin concentration, rbc MCH 29.7 pg 27.0-33.0 N MCH [Entiti c mass] by Automated count MCV 88.2 fL 80.0-100.0 N MCV [Entit ic volume] by Automated count HCT 41.7 % 38.5-50.0 N Hematocrit [Volume Fraction] of Blood by Automated count HGB 14.0 g/dL 13.2-17.1 N Hemoglobin [Mass/volume] in Blood RBC M/UL 4.73 MILLION/UL 10*6/uL 4.20-5.80 N red blood count WBC CT BLOOD 7.3 10*3/uL 3.8-10.8 N leukocy te count, blood SGPT (ALT) 32 U/L 9-46 N Alanine aminotransferase [Enzymatic activity/volume] in Serum or Plasma SGOT (AST) 27 U/L 10-35 N Aspartate aminotransferase [Enzymatic activity/volume] in Serum or Plasma ALK PHOS 131 U/L 40-115 H Alkaline phosphatase [Enzymatic activity/volume] in Blood BILI TOTAL 0.4 mg/dL 0.2-1.2 N Bilirubin. total [Mass/volume] in Serum or Plasma A/G RATIO 1.3 (calc) 1.0-2.5 N Albumin/ Globulin [Mass Ratio] in Serum or Plasma GLOBULIN TOT 3.2 G/DL (CALC) g/dL 1.9-3.7 N Globulin [Mass/volume] in Serum ALBUMIN EOP 4.3 g/dL 3.6-5.1 N Albumin [Mass/volume] in Serum or Plasma by Electrophoresis PROTEIN, TOT 7.5 g/dL 6.1-8.1 N Protein [Mass/volume] in Serum or Plasma CALCIUM 9.3 mg/dL 8.6-10.3 N Calcium [Moles/volume] in Serum or Plasma CO2 26 mmol/L 19-30 N Carbon dioxid e, total [Moles/volume] in Venous blood CHLORIDE BLD 101 mmol/L 98-110 N chloride , blood POTASSIUM 3.9 mmol/L 3.5-5.3 N Potassium [Moles/volume] in Serum or Plasma SODIUM 136 mmol/L 135-146 N Sodium [Moles/volume] in Serum or Plasma BUN/CREAT NOT APPLICABLE (calc) 6-22 Urea nitrogen/Creatinine [Mass Ratio] in Serum or Plasma EGFR IF AFA 117 mL/min/ 1.73m2 >OR = 60 N Glomerular filtration rate/1.73 sq M.predicted among blacks [Volume Rate/Area] in Serum, Plasma or Blood by Creatinine-based formula (MDRD) EGFR 101 mL/min/ 1.73m2 >OR = 60 N Glomerular filtration rate/1.73 sq M.predicted [Volume Rate/Area] in Serum, Plasma or Blood by Creatinine-based formula (MDRD) CREATININE 0.75 mg/dL 0.70-1.33 N Creatini ne [Mass/volume] in Serum or Plasma BUN 9 mg/dL 7-25 N Urea nitrogen [Mass/volume] in Serum or Plasma GLUCOSE SER 92 mg/dL 65-99 N Glucose [Mass/volume] in Serum or Plasma NON-HDL CHOL 190 MG/DL (CALC) mg/dL H cholesterol, non-HDL, total CHOL/HDL % 6.8 (calc) < OR = 5.0 H chol esterol/HDL ratio, serum, percent LDL 128 MG/DL (CALC) mg/dL <130 N Cholesterol in L DL [Mass/volume] in Serum or Plasma - mg/dL TRIGLYC TOT 311 mg/dL <150 H Triglycer [place] [Mass/volume] in Serum or Plasma - mg/dL HDL 33 mg/dL >OR = 40 L Cholesterol in HDL [Mass/volume] in Serum or Plasma - mg/dL CHOLESTEROL 223 mg/dL 125-200 H Cholester ol [Mass/volume] in Serum or Plasma - mg/dL Plan of Care Type Date Detail Referral General Surgery Referral St Physician General Surgery # 1 [facility], [address] [place] [address] [address], [address] Referral General Surgery Referral St Physician General Surgery # 1 [facility], [address] [place] [address] [address], [address] Referral Ophthamology Opt ometry Referral [facility] Sight, [facility] for, [address] [place] [address], [address] Referral Podiatry Referra shanika [employer] Management Teacher [facility], [address] [place] [address], [address] Pending order Medication Recon ciliation Pending order Lipid Panel Pending order TSH reflex to fr ee T4 Pending order Vitamin D 25 Hyd sky Pending order CMP Pending order HGBA1c Pending order CBC no diff Pending order SNOMED-CT: 56094 3000 Smoking Cessation Counseling Pending order SNOMED-CT: 96033 7324090125 Current Medications Documented Pending order Vitamin D 25 Hyd sky Pending order HGBA1c Pending order CMP Pending order Lipid Panel Pending order HGBA1c Pending order BMP Pending order Lipid Panel Pending order HGBA1c Pending order BMP Pending order B12 Pending order CBC no diff Pending order CMP Pending order TSH reflex to fr ee T4 Pending order Vitamin D 25 Hyd sky Pending order B12 (Outside Lab ) Pending order Lipid Panel (Out side Lab) Pending order BMP (Outside Lab ) Pending order Prostate Screeni ng (Outside Lab) Pending order Vitamin D 25 Hyd sky (Outside Lab) Patient education Medications Procedures Code Procedure Name Date Entry Date CPT-17765 Pulse Ox for O2 Saturation; single [address] [id number] Medication Reconciliation SCT-[id number] SNOMED-CT: 203769766 Smoking Cessation Counseling SCT-[id number] SNOMED-CT: 504742711 855592 Current Medications Documented 31101 [facility] # Lipid Panel 3 67010 [facility] # TSH reflex to free T4 43510 [facility] # Vitamin D 25 Hydroxy 2 88631 [facility] # CMP 3 496 [facility] # HGBA1c [facility] 1759 CBC no diff GEN SX PRE SX General Surgery Refe rral [facility] E Physician General Surgery # 1 [place] [address] [facility] # Lipid Panel 1 33859 [facility] # CMP 1 496 [facility] # HGBA1c 52605 [facility] # Vitamin D 25 Hydroxy 2 63994 [facility] # Lipid Panel 1 71251 [facility] # CMP 1 496 [facility] # HGBA1c 73943 [facility] # Vitamin D 25 Hydroxy 2 PODIATRY [facility] [place] [facility]ODIAT[facility] Podiatry Referral [place] [facility] GEN SX PRE SX General Surgery Refe rral [facility] Phys[facility] General Surgery # 1 [place] GEN SX PRE SX General Surgery Refe rral [facility] Physician General Surgery # 1 [place] [address] [facility] # BMP 2 496 [facility] # HGBA1c OPHTH [facility] Ophthamology Optomet ry Referral [facility] [address] [facility] # Lipid Panel 4 496 [facility] # HGBA1c 92672 [facility] # BMP 4 927 [facility] # B12 [facility]# 1759 [place] [address] [facility] # CMP 9 66412 [facility] # TSH reflex to free T4 18833 [facility] # Vitamin D 25 Hydroxy 2 CPT-66636 Venipuncture CPT-10179 B12 (Outside Lab) CPT-79669 Lipid Panel (Outside Lab) 02/07/22 CPT-23915 BMP (Outside Lab) CPT-G0103 Prostate Screening (Outside Lab) CPT-56830 Vitamin D 25 Hydroxy (Outside Lab) 06/26 Vital Signs Date Name Value Unit Description BMI (Body Mass Index) 37.08 kg/m2 Bod y Mass Index (Ratio) Body Temperature 98.3 [degF] temperat ure E&M Body Temperature 36.83 Jess temperat ure in centigrade E&M BP Diastolic 81 mm[Hg] blood pressu re, diastolic BP Systolic 129 mm[Hg] blood pressur e, systolic BSA (Body Surface Area) 2.30 b jim surface area Heart Rate 86 /min pulse rate Weight Measured 110.45 kg weight in kilograms E&M Weight Measured 243 [lb_av] weight E& M Weight Measured 243 [lb_av] weight E& M Height 172.72 cm height in cent imeters E&M Height 68 [in_us] height E&M Respiratory Rate 20 /min respirat ory rate E&M Immunizations Vaccine Administration Date Standard Description CVX Co de Dose Zostavax Subcutaneous Solution Reconstituted 06498 UNT/0.65ML ([facility] [id number]) Zoster 121 Unknown Advance Directives No information available.
--- NOTE | 2024-09-10 11:40 | CT_ITS ---
FINAL REPORT TECHNIQUE: Thin section axial images were obtained through the lumbar spine without contrast. Sagittal and coronal reconstruction images were obtained from the axial data. Exam was performed using dose reduction techniques. This study was performed with techniques to keep radiation doses as low as reasonably achievable (ALARA). Individualized dose reduction techniques using automated exposure control or adjustment of mA and/or kV according to the patient's size were employed. CLINICAL HISTORY: midline low back pain bilat sciatica COMPARISON: 05/06/2024 FINDINGS: There is no acute fracture or acute malalignment of the lumbar spine. Vertebral body height is preserved. Degenerative disc disease is present, and appears similar to the prior exam, most pronounced at the L4-5 and L5-S1 levels. There is no significant central stenosis. Paraspinal soft tissues are within normal limits. There is no paraspinal mass or fluid collection. IMPRESSION: No acute abnormality of the lumbar spine. Multilevel degenerative disc disease appears similar to the prior exam. Reviewed, Interpreted and Dictated by Pallavi Porras MD Transcribed by Shelby Deng [facility] [facility]
--- NOTE | 2024-09-10 11:42 | HMH.EDGENADL ---
Discharge Plan Disposition Patient Disposition: Home, Self-Care Condition: Good Prescriptions Prescriptions: New acetaminophen [Tylenol 8 Hour] 650 mg tablet extended release 650 mg PO Q8H PRN (Reason: pain) Qty: 20 0RF methocarbamol 500 mg tablet 500 mg PO Q8H PRN (Reason: pain) Qty: 20 0RF ibuprofen 600 mg tablet 600 mg PO Q8H PRN (Reason: pain) Qty: 20 0RF No Action metformin 500 mg tablet 500 mg PO BID Qty: 60 2RF rosuvastatin 10 mg tablet 10 mg PO DAILY Qty: 30 2RF cholecalciferol (vitamin D3) 1,250 mcg (50,000 unit) capsule 1,250 mcg PO WEEKLY Qty: 10 0RF Trelegy Ellipta 100-62.5-25 mcg blister with device 1 inh inhalation DAILY Qty: 60 3RF Jardiance 10 mg tablet 10 mg PO DAILY Qty: 30 2RF albuterol sulfate 90 mcg/actuation HFA aerosol inhaler 2 puff inhalation Q4-6H PRN (Reason: shortness of breath or wheezing) Qty: 6.7 1RF (DME) blood-glucose meter Kit See Rx Instructions .Route Qty: 1 0RF Rx Instructions: As directed once daily (DME) lancets [Accu-Chek Softclix Lancets] Misc See Rx Instructions .Route Qty: 100 3RF Rx Instructions: As directed once daily (DME) blood sugar diagnostic Strip See Rx Instructions .Route Qty: 100 3RF Rx Instructions: As directed once daily losartan 25 mg tablet See Rx Instructions .ROUTE .COMPLEX Qty: 90 0RF Dose Instruction: Take 1 tablet by mouth once daily Rx Instructions: Take 1 tablet by mouth once daily nystatin 100,000 unit/mL suspension 1 ml PO QID 10 Days Qty: 40 0RF Rx Instructions: swish and swallow losartan 25 mg tablet 25 mg PO DAILY Qty: 30 0RF Referrals Follow up/Referrals: Elizabeth Mensah APRN [Primary Care Provider, Medical] - See instructions Activity Restrictions/Add. Instructions Additional Instructions/Restrictions: You were evaluated in the emergency department today. At this time, your workup is reassuring. Your blood pressure is very high, so I recommend close follow-up with your primary care provider for reassessment of your blood pressure. Please make sure that you are taking your blood pressure medications at home as prescribed. 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 Return to the emergency department for new or worsening symptoms. Clinical Impressions Clinical Impression: Chronic bilateral low back pain with bilateral sciatica, High blood pressure Stand Alone Forms Stand Alone Forms: Work/School Release Instructions Patient Instructions: DI for Acute Pain -- Adult, DI for Back Pain With Sciatica Print Language Print Language: Armenian Discharge ED Provider: Jen Brito General Adult HPI General Chief complaint: PAIN Stated complaint: pack and leg pain-no accident Time Seen by Provider: 09/10/24 11:34 History of Present Illness HPI narrative: This patient is a 69-year-old male with a history of hypertension, COPD, type 2 diabetes, and chronic back pain presenting to the emergency department for evaluation with concern for back pain. Patient reports that he had a fall 2 weeks ago and has had worsening back pain over the last couple of days. He states that the pain goes down both of his legs and last night he could not sleep because his legs felt very restless. He denies any saddle anesthesia, lower extremity paresthesias, fecal incontinence. He does note that he has trouble making it to the bathroom to pee without dribbling on himself. He notes this has been going on for quite some time. No fevers or infectious symptoms. No other concerns noted. He has not tried anything at at home for pain at all, as he states he does not have anything, not even Tylenol or ibuprofen. Related Data Previous Rx's ?Medication ?Instructions ?Recorded cholecalciferol (vitamin D3) 1,250 1,250 mcg PO WEEKLY #10 caps 04/15/23 mcg (50,000 unit) capsule metformin 500 mg tablet 500 mg PO BID #60 tabs 04/15/23 rosuvastatin 10 mg tablet 10 mg PO DAILY #30 tabs 04/15/23 nystatin 100,000 unit/mL oral 1 ml PO QID 10 days #40 mL 11/30/23 suspension albuterol sulfate 90 mcg/actuation 2 puff inhalation Q4-6H PRN 12/05/23 aerosol inhaler shortness of breath or wheezing #6.7 grams empagliflozin 10 mg tablet 10 mg PO DAILY #30 tabs 12/05/23 (Jardiance) fluticasone fur. 100 mcg-umeclid 1 inh inhalation DAILY #60 ea 12/05/23 62.5 mcg-vilant 25 mcg inhalat.powder (Trelegy Ellipta) blood sugar diagnostic #100 ea 12/09/23 blood-glucose meter #1 ea 12/09/23 lancets (Accu-Chek Softclix #100 ea 12/09/23 Lancets) losartan 25 mg tablet 25 mg PO DAILY #30 tabs 05/06/24 losartan 25 mg tablet See Rx Instructions .Route 07/09/24 .COMPLEX #90 tabs acetaminophen 650 mg 650 mg PO Q8H PRN pain #20 tabs 09/10/24 tablet,extended release (Tylenol 8 Hour) ibuprofen 600 mg tablet 600 mg PO Q8H PRN pain #20 tabs 09/10/24 methocarbamol 500 mg tablet 500 mg PO Q8H PRN pain #20 tabs 09/10/24 Allergies Allergy/AdvReac Type Severity Reaction Status Date / Time Penicillins (PENICILLINS) Allergy Unknown Rash Verified 05/06/24 14:14 [facility] Disclaimer: The information contained in this section may have been updated after the patient was seen, as this information can be updated by other users. Medical History Diabetes mellitus Hypertension COPD (chronic obstructive pulmonary disease) Surgical History History of colonoscopy Hx of cholecystectomy History of appendectomy Family History Other Family history of COPD (chronic obstructive pulmonary disease) Social History Smoking Status: Current every day smoker tobacco type: cigarettes packs per day: 1 second hand exposure: No alcohol intake: never substance use type: denies use current occupational status: other Travel in the last 8 weeks?: None Have you lived/traveled outside US in past 30 days?: No Contact w/someone who lives/traveled outside US past 30 days?: No Exposure to someone with infectious disease in past 14 days?: No Do you have a fever (greater than 100.4 F or 38 C)?: No Have you tested positive for COVID-19?: No Exposed to someone with COVID-19 in past 14 days?: No Do you have a sore throat?: No Do you have a cough?: No Do you have any weakness?: No Do you have any diarrhea?: No Are you experiencing any unusual bleeding?: No Do you have any muscle aches/pain?: Yes Do you have any abdominal pain?: No Are you experiencing loss of taste or smell?: No Other Medical History Have you received the Flu Vaccine for this season: Yes Have you received the Pneumonia Vaccine: Yes ROS Obtained: Yes All systems reviewed & no additional complaints except as documented Physical Exam General General appearance: alert and in no apparent distress Head Head exam: atraumatic and normocephalic Eye Eye exam: Present normal appearance, PERRL and EOMI ENT ENT exam: Present normal exam, normal oropharynx, mucous membranes moist and normal external ear exam Neck Neck exam: Present normal inspection, full ROM and trachea midline; Absent tenderness Chest Chest inspection: Present normal inspection and symmetric chest wall rise; Absent tenderness Respiratory Respiratory exam: Present normal lung sounds bilaterally; Absent respiratory distress, wheezes, stridor or accessory muscle use Cardiovascular Cardiovascular exam: Present regular rate and normal rhythm Abdominal Exam Abdominal exam: Present soft; Absent distention, tenderness or guarding Extremities Exam Extremities exam: Present normal inspection, full ROM and normal capillary refill; Absent tenderness or edema Back Exam Back exam: Present full ROM and tenderness (Midline lower lumbar spine) Neurological Exam Neurological exam: Present alert, oriented X3, CN II-XII intact and normal gait; Absent motor sensory deficit Psychiatric Psychiatric exam: Present normal affect and normal mood Skin Skin exam: Present warm and dry Medical Decision Making Medical Records Medical records reviewed: Yes I reviewed the patient's medical records. Screening: Per USPSTF and CDC recommendations, given the prevalence of disease in our region, it is our hospital?s policy to screen for HIV and viral Hepatitis for all patients aged 18 and over and those with ongoing risk factors. Daniel Inquiry Pt receiving controlled substance: No Vital Signs: 09/10/24 11:15 09/10/24 11:31 09/10/24 12:00 Temperature 98.6 F Temperature Source Oral Pulse Rate 97 H 92 H Pulse Rate [Left Radial] 95 H Respiratory Rate 17 Blood Pressure 154/82 H 146/76 H Blood Pressure [Right Arm] 154/82 H Blood Pressure Mean Blood Pressure Mean [Right Arm] 106 Blood Pressure Source Blood Pressure Source [Right Arm] Automatic Cuff Blood Pressure Position Blood Pressure Position [Right Arm] Sitting 02 Sat by Pulse Oximetry 98 97 97 Oxygen Delivery Method Room Air 09/10/24 12:30 09/10/24 13:00 09/10/24 13:31 Temperature Temperature Source Pulse Rate 86 84 Pulse Rate [Left Radial] Respiratory Rate Blood Pressure 174/88 H 165/93 H 195/97 H Blood Pressure [Right Arm] Blood Pressure Mean 129 Blood Pressure Mean [Right Arm] Blood Pressure Source Blood Pressure Source [Right Arm] Blood Pressure Position Blood Pressure Position [Right Arm] 02 Sat by Pulse Oximetry 94 L 96 96 Oxygen Delivery Method 09/10/24 13:42 09/10/24 14:04 Temperature 98.3 F Temperature Source Oral Pulse Rate 85 86 Pulse Rate [Left Radial] Respiratory Rate 17 Blood Pressure 185/105 H 185/105 H Blood Pressure [Right Arm] Blood Pressure Mean Blood Pressure Mean [Right Arm] Blood Pressure Source Manual Cuff/ Auscultation Blood Pressure Source [Right Arm] Blood Pressure Position Supine Blood Pressure Position [Right Arm] 02 Sat by Pulse Oximetry 96 Oxygen Delivery Method Room Air Lab Data Lab results reviewed: Yes I reviewed the patient's lab results. Lab Results 09/10/24 12:35: Urine Color Yellow, Urine Appearance Clear, Urine pH 6.0, Ur Specific Slade 1.015, Urine Protein Negative, Urine Glucose (UA) 3+, Urine Ketones Negative, Urine Blood Negative, Urine Nitrate Negative, Urine Bilirubin Negative, Urine Urobilinogen 0.2, Ur Leukocyte Esterase Negative, Urine RBC None, Urine WBC Occasional, Ur Squamous Epith Cells Occasional, Urine Bacteria Trace Orders (Tests/Meds): ED MEDICATIONS Discontinued Medications Generic Name Dose Route Start Last Admin Trade Name Freq PRN Reason Stop Dose Admin Acetaminophen 1,000 mg 09/10/24 11:40 09/10/24 11:47 Acetaminophen 500mg Tab PO 09/10/24 11:41 1,000 mg ONCE ONE Administration Ketorolac Tromethamine 30 mg 09/10/24 11:40 09/10/24 11:47 Ketorolac 30mg/Ml Vial IM 09/10/24 11:41 30 mg ONCE ONE Administration Lidocaine 1 each 09/10/24 11:40 09/10/24 11:47 Lidocaine 5% Transdermal Patch TD 09/10/24 11:41 1 each ONCE ONE Administration Methocarbamol 500 mg 09/10/24 11:40 09/10/24 11:48 Methocarbamol 500mg Tablet PO 09/10/24 11:41 500 mg ONCE ONE Administration ORDERS Category Date Time Status CT lumbar spine wo con Stat Cat Scan 09/10/24 11:40 Completed UA [Urinalysis and Microscopic] Stat Lab 09/10/24 12:35 Completed Medical Decision Narrative: In summary, this patient is a 69-year-old male presenting to the Emergency Department for evaluation of low back pain radiating down both legs that is acute on chronic. Differential diagnoses considered include but are not limited to musculoskeletal strain/pain, disc herniation, spinal stenosis, lumbar radiculopathy, sciatica, spinal fracture, cauda equina syndrome. Ruling out the most morbid conditions drove assessment. It should be noted patient's history includes chronic low back pain, hypertension, hyperlipidemia, type 2 diabetes, and tobacco dependence which are not at goal therapy. This complicates all aspects of care by increasing patient's risk for morbidity. I reviewed patient's past medical records and noted prior evaluation in June for bilateral foot pain as well as back in April for back pain. On exam, the patient is sitting upright in no acute distress. He is ambulatory and is neurologically intact in his lower extremities with no saddle anesthesia, so doubt cauda equina syndrome or spinal cord compression. He does complain of some urinary issues with dribbling and urinary urgency, which could be related to BPH or some other cause of urinary outflow obstruction. Will obtain postvoid bladder scan, urinalysis, and CT lumbar spine without contrast. He was given IM Toradol, oral Tylenol, oral Robaxin, and topical Lidoderm patch for symptomatic improvement. I independently interpreted CT scan prior to the radiologist read and noted no acute fracture. Please see their read for final interpretation. Labs were obtained that demonstrated reassuring urinalysis without concerns for infection or hematuria. On reassessment, patient had good improvement after administration of interventions above. He had no urinary retention on postvoid residual with only 11 mL in his bladder. Urine is reassuring, CT scan is reassuring. He is able to ambulate and is neurologically intact in his lower extremities. At this time, I feel he likely has acute on chronic flareup of back pain with bilateral sciatica and is appropriate for discharge with close follow-up with PCP. He had high blood pressure here in the emergency department, but he has not taken his blood pressure medicine today. I advise that he take it at home and keep an eye on his blood pressure and follow-up with his primary care provider for reassessment of this as well. He was discharged with strict return precautions and prescriptions for Tylenol, ibuprofen, and Robaxin. Critical Care Critical Care Time Critical Care Time: No
[2024-09-10] MEDS: KETOROLAC 30MG/ML VIAL 30 MG IM (11:47)
[2024-09-10] MEDS: LIDOCAINE 5% TRANSDERMAL PATCH 1 EACH TD (11:47)
[2024-09-10] MEDS: ACETAMINOPHEN 500MG TAB 1000 MG PO (11:47)
[2024-09-10] MEDS: METHOCARBAMOL 500MG TABLET 500 MG PO (11:48)
[2024-09-10 12:39] LABS: Microscopic, Urine URINE MICROSCOPIC (MICROSCOPIC)
--- NOTE | 2024-09-10 12:40 | PC.NURSE ---
pt post void bladder scan residual was 11ml. aware
[2024-09-10 12:41] LABS: Appearance,Urine CLEAR (Clear); Bilirubin,Urine Negative (Negative); Blood, Urine Negative (Negative); Color,Urine YELLOW (Yellow); Glucose,Urine (UA) 3+ (Negative); Ketones,Urine Negative (Negative); Leukocyte Esterase,Urine Negative (Negative); Nitrate,Urine Negative (Negative); Protein,Urine Negative (Negative); Specific Gravity, Urine 1.015 (1.005-1.030); Urobilinogen,Urine 0.2 EU/dl (0.2)
[2024-09-10 12:50] LABS: Bacteria,Urine Trace /lpf; Squamous Epithelial Cell,Urine Occasional #/hpf (0-5); WBC,Urine Occasional #/hpf (0-3)
== END 2024-09-10 14:14 | disposition home or self-care (01) ==
PROVIDERS: Emergency Provider Emergency Medicine; PCP Nurse Practitioner Family
DX: M54.41 Lumbago with sciatica, right side (principal); M54.42 Lumbago with sciatica, left side; I10 Essential (primary) hypertension; F17.210 Nicotine dependence, cigarettes, uncomplicated
CPT/HCPCS: 72131; 81001; 96372; 99284; J1885

== ENCOUNTER 2024-09-14 16:04 | Outpatient (CLI) | payer MEDICARE, SELFPAY ==
[2024-09-14 18:01] LABS: Chol/HDL Ratio 6.9 (1-3.5); Cholesterol 254 mg/dl (140-200); HDL Cholesterol 37 mg/dl (40-60); Triglycerides 272 mg/dl (30-150); VLDL Cholesterol 54 mg/dL (0-40)
[2024-09-14 18:02] LABS: Creatinine,Urine Random 111 mg/dL (Not Estab.)
[2024-09-14 18:11] LABS: Direct LDL Cholesterol 125.78 mg/dL (100-129)
[2024-09-14 18:27] LABS: Hemoglobin A1C 11.5 % (4.0-6.0)
[2024-09-14 18:34] LABS: Thyroid Stimulating Hormone 1.09 uIU/mL (0.465-4.68)
--- OUTSIDE RECORDS SUMMARY | 2024-09-15 11:05 | XMS_ITS | Clinical Summary ---
Author Organization [employer] [facility] Address [address] [place] [address] Phone Care Team Providers Care Technician Automatic Name Role Phone Nima Coleman MD Primary Care Physician [ ] Conditions or Problems Problem Name Problem Code Onset Date Status Entry Date Provider Comment Standard Description Annotate Peripheral vascular disease 200526823 (SNOMED CT) 06/15 Active 06/15 Nima Coleman MD Peripheral vascular disease Depression 59863620 (SNOMED CT) 06/15 Active 06/15 Nima Coleman MD Depressive disorder SEBACEOUS CYST 258698341 (SNOMED CT) 11/16 Active 11/16 Nima Coleman MD Epidermoid cyst of skin FOOT PAIN, BILATERAL M79.609 (ICD-10-CM ) 08/18 Active 08/18 Nima Coleman MD Pain in unspecified limb History of DM TYPE 2 CONTROL E11.9 (ICD-10-CM ) 08/18 Active 08/18 Nima Coleman MD Type 2 diabetes mellitus without complications BP HIGH NO HTN R03.0 (ICD-10-CM ) 08/03 Active 08/03 Nima Coleamn MD Elevated blood-pressure reading, without diagnosis of hypertension OBESITY NOS 251017922 (SNOMED CT) 08/03 Active 08/03 Nima Coleman MD Obesity RESTLESS LEG SYNDROME 34681796 (SNOMED CT) 08/03 Active 08/03 Nima Coleman MD Restless legs VITAMIN D DEFICIENCY 76795841 (SNOMED CT) 04/20 Active 04/20 Nima Coleman MD Vitamin D deficiency TOBACCO USE DIS F17.200 (ICD-10-CM ) 06/26 Active 06/26 Nima Coleman MD Nicotine dependence, unspecified, uncomplicated PERIPHERAL EDEMA 027333031 (SNOMED CT) 06/26 Active 06/26 Nima Coleman MD Peripheral edema GERD 251007104 (SNOMED CT) 06/26 Active 06/26 Nima Coleman MD Gastroesophageal reflux disease COPD 40476536 (SNOMED CT) 06/26 Active 06/26 Nima Coleman MD Chronic obstructive pulmonary disease HYPERLIPIDEMI A 72301834 (SNOMED CT) Active 06/14 Lenan Stewart Hyperlipidemia History of OBSTRUCTIVE SLEEP APNEA 37036492 (SNOMED CT) Active 06/14 Leann Stewart Obstructive sleep apnea syndrome Medications Medication Instructions Start Date Stop Date Generic Name ND Provider ADVAIR HFA 115-21 MCG/ACT AERO 2 PUFFS Q12H FLUTICASONE-SALME TEROL 12715424700 Nima Coleman MD KLOR-CON M20 20 MEQ CR-TABS 1 tab daily POTASSIUM CHLORIDE JESUS CR 95698306430 Nima Coleman MD PAXIL 20 MG TABS 1 TAB DAILY PAROXETINE HCL 82885168636 Nima Coleman MD CILOSTAZOL 100 MG TABS Take 1 tablet by mouth twice a day CILOSTAZOL 53650383239 Nima Coleman MD LANCETS MICRO THIN 33G FOR GLUC TESTING 1-2 TIMES / DAY LANCETS 13990197399 Nima Coleman MD RELION CONFIRM/MICRO TEST STRP FOR GLUC TESTING 1-2 TIMES / DAY GLUCOSE BLOOD 34067865766 Nima SETH CONFIRM GLUCOSE MONITOR w/Device KIT USE FOR CHECKING GLUC 1-2 TIMES / DAY BLOOD GLUCOSE MONITORING SUPPL 31425140386 Nima Coleman MD PAXIL 10 MG TABS 1 TAB DAILY PAROXETINE HCL 52566060514 Nima Coleman MD SIMVASTATIN 40 MG TABS qd SIMVASTATIN 48405539236 Nima Coleman MD METFORMIN HCL 500 MG TABS Take 1 tablet by mouth twice a day with breakfast and dinner METFORMIN HCL 35380694345 Nima Coleman MD VITAMIN D3 125 MCG (5000 UT) TABS 1 TAB DAILY CHOLECALCIFEROL 09109634144 Nima Coleman MD B-12 1000 MCG CAPS Take 1 capsule by mouth daily CYANOCOBALAMIN 88102690399 Nima Coleman MD VITAMIN D3 1.25 MG (92062 UT) CAPS Take 1 capsule by mouth daily CHOLECALCIFEROL 19245977140 Nima Coleman MD RANITIDINE HCL 150 MG ORAL TABLET 1 TAB QAM & 1 QHS RANITIDINE HCL 78212286840 Nima Coleman MD PROTONIX 40 MG PACK 1 TAB DAILY 08/03 PANTOPRAZOLE SODIUM 84876482001 Nima Coleman MD REQUIP 1 MG ORAL TABLET 1 TAB QHS ROPINIROLE HCL 93226542152 Nima Coleman MD VENTOLIN HFA 108 (90 Base) MCG/ACT AERS 2 PUFFS Q4H PRN ALBUTEROL SULFATE 75748524781 Nima Coleman MD PROTONIX 40 MG PACK 1 TAB DAILY PANTOPRAZOLE SODIUM 31988460952 Nima Coleman MD SYMBICORT 80-4.5 MCG/ACT AERO 2 PUFFS BID BUDESONIDE-FORMOT SHARDA FUMARATE 23717536540 Nima Coleman MD LASIX 40 MG TABS bid FUROSEMIDE 70775732239 Nima Coleman MD SYMBICORT 80-4.5 MCG/ACT AERO 2 PUFFS BID 10/02 BUDESONIDE-FORMOT SHARDA FUMARATE 29811445179 Preston Delatorre VENTOLIN HFA 108 (90 Base) MCG/ACT AERS 1-2 puffs qid prn 10/02 ALBUTEROL SULFATE 08208455421 Preston Delatorre REQUIP 1 MG ORAL TABLET 1 po qhs 10/02 ROPINIROLE HCL 72055216114 Preston Delatorre REQUIP 0.5 MG ORAL TABLET 1 TAB 2 HRS BEFORE SLEEP X 14 DAYS; THEN 2 TABS OR #1 1 MG TAB QPM ROPINIROLE HCL 28156438794 Nima Coleman MD SYMBICORT 80-4.5 MCG/ACT AERO 2 PUFFS BID BUDESONIDE-FORMOT SHARDA FUMARATE 24031916253 Nima Coleman MD PROTONIX 40 MG PACK 1 QD PANTOPRAZOLE SODIUM 45735266414 Preston Delatorre PROVENTIL HFA 108 (90 Base) MCG/ACT INHALATION AEROSOL SOLUTION ALBUTEROL SULFATE 11642429345 Nima Coleman MD ASPIRIN LOW DOSE TBEC ASPIRIN TBEC 27070618395 Nima Coleman MD K-DONOVAN 20 MEQ PACK 1 TAB QD POTASSIUM CHLORIDE Nima Coleman MD SIMVASTATIN 40 MG TABS qd SIMVASTATIN 24783420171 Nima Coleman MD LASIX 40 MG TABS bid FUROSEMIDE 23593039728 Nima Coleman MD PROVENTIL HFA 108 (90 Base) MCG/ACT INHALATION AEROSOL SOLUTION 1-2 puffs q 4-6 hours prn cough/wheeze. 05/19 ALBUTEROL SULFATE 52677910253 Nithya [place] DIGITAL LIBRARIAN PROTONIX 40 MG PACK 1 po qd 05/19 PANTOPRAZOLE SODIUM 97200623277 Nithya [place] DIGITAL LIBRARIAN K-DONOVAN 20 MEQ PACK 1 po qd 05/19 POTASSIUM CHLORIDE 11049544963 Nithya [place] DIGITAL LIBRARIAN LASIX 40 MG TABS 1 po bid 05/19 FUROSEMIDE 54979579118 Nithya [place] DIGITAL LIBRARIAN SIMVASTATIN 40 MG TABS 1 po qd 05/19 SIMVASTATIN 10108311307 Nithya [place] DIGITAL LIBRARIAN Medications Administered No information available. 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 General Surgery, [address] [place] [address] [address], [address] Referral General Surgery Referral St Physician General Surgery # [address] [facility] General Surgery, [address] [place] [address] [address], [address] Referral Ophthamology Opt ometry Referral [facility] Sight, [facility], [address] [place] [address], [address] Referral Podiatry Referra shanika LORA General Maintenance Mechanic [facility], [address] [place] [address], [address] Pending order Medication Recon ciliation Pending order Lipid Panel Pending order TSH reflex to fr ee T4 Pending order Vitamin D 25 Hyd sky Pending order CMP Pending order HGBA1c Pending order CBC no diff Pending order SNOMED-CT: 06012 3000 Smoking Cessation Counseling Pending order SNOMED-CT: 11172 [id number] Current Medications Documented Pending order Vitamin D [...] Procedures Code Procedure Name Date Entry Date CPT-74744 Pulse Ox for O2 Saturation; single 12048 [facility]-[id number] Medication Reconciliation SCT-[id number] SNOMED-CT: 620940506 Smoking Cessation Counseling SCT-[id number] SNOMED-CT: 681770486 732723 Current Medications Documented 22715 [facility] # Lipid Panel 3 32803 [facility] # TSH reflex to free T4 61501 [facility] # Vitamin D 25 Hydroxy 2 52393 [facility] # CMP 3 496 [facility] # HGBA1c [facility]# 1759 CBC no diff GEN SX PRE SX General Surgery Refe rral St E Physician General Surgery # 1 [place] [address] [facility] # Lipid Panel 1 25661 [facility] # CMP 1 496 [facility] # HGBA1c 59570 [facility] # Vitamin D 25 Hydroxy 2 96930 [facility] # Lipid Panel 1 99727 [facility] # CMP 1 496 [facility] # HGBA1c 76696 [facility] # Vitamin D 25 Hydroxy 2 PODIATRY Foot Spec[facility] Podiat[place] Referral [place] [facility] PODIATRY Foot Specia Podiatry Referral N [place] [facility] GEN SX PRE SX General Surgery Refe rral St E Physician General Surgery # 1 [place] GEN SX PRE SX General Surgery Refe rral St E Physician General Surgery # 1 [place] [address] [facility] # BMP 2 496 [facility] # HGBA1c OPHTH OPT [facility] Ophthamology Optomet ry Referral [facility] 42671 [facility] # Lipid Panel 4 496 [facility] # HGBA1c 72216 [facility] # BMP 4 927 [facility] # B12 [facility]# 1759 CBC no diff 66612 [facility] # CMP 9 34208 [facility] # TSH reflex to free T4 37692 [facility] # Vitamin D 25 Hydroxy 2 CPT-58082 Venipuncture CPT-36578 B12 (Outside Lab) CPT-08801 Lipid Panel (Outside Lab) 02/07/22 CPT-35910 BMP (Outside Lab) CPT-G0103 Prostate Screening (Outside Lab) CPT-54426 Vitamin D 25 Hydroxy (Outside Lab) 06/26 [...] Co de Dose Zostavax Subcutaneous Solution Reconstituted 31309 UNT/0.65ML ([facility] [id number]) Zoster 121 Unknown Advance Directives No information available.
== END 2024-09-14 23:59 | disposition home or self-care (01) ==
LOC: LAB.DROPOF 09-15 11:01
PROVIDERS: PCP Nurse Practitioner Family; Visit Provider Nurse Practitioner Family
DX: E11.69 Type 2 diabetes mellitus with other specified complication (principal); E66.9 Obesity, unspecified; I10 Essential (primary) hypertension; E78.5 Hyperlipidemia, unspecified
CPT/HCPCS: 80061; 82043; 82570; 83036; 84443

== ENCOUNTER 2024-09-23 14:04 | Outpatient (CLI) | payer MEDICARE, SELFPAY ==
--- OUTSIDE RECORDS SUMMARY | 2024-09-23 14:19 | XMS_ITS | Clinical Summary ---
Author Organization [facility] Address [address] [place] [address] Phone Care Team Providers Care Actuarial Trainee Name Role Phone Nima Coleman MD Primary Care Physician [phone] [ ] Conditions or Problems Problem Name Problem Code Onset Date Status Entry Date Provider Comment Standard Description Annotate Peripheral vascular disease 959500762 (SNOMED CT) 06/15 Active 06/15 Nima Coleman MD Peripheral vascular disease Depression 39952413 (SNOMED CT) 06/15 Active 06/15 Nima Coleman MD Depressive disorder SEBACEOUS CYST 988409170 (SNOMED CT) 11/16 Active 11/16 Nima Coleman [...] reading, without diagnosis of hypertension OBESITY NOS 791916949 (SNOMED CT) 08/03 Active 08/03 Nima Coleman MD Obesity RESTLESS LEG SYNDROME 72393737 (SNOMED CT) 08/03 Active 08/03 Nima Coleman MD Restless legs VITAMIN D DEFICIENCY 29548824 (SNOMED CT) 04/20 Active 04/20 Nima Coleman MD Vitamin D deficiency TOBACCO USE DIS F17.200 (ICD-10-CM ) 06/26 Active 06/26 Nima Coleman MD Nicotine dependence, unspecified, uncomplicated PERIPHERAL EDEMA 456291645 (SNOMED CT) 06/26 Active 06/26 Nima Coleman MD Peripheral edema GERD 210792675 (SNOMED CT) 06/26 Active 06/26 Nima Coleman MD Gastroesophageal reflux disease COPD 01654413 (SNOMED CT) 06/26 Active 06/26 Nima Coleman MD Chronic obstructive pulmonary disease HYPERLIPIDEMI A 21262420 (SNOMED CT) Active 06/14 Leann Stewart Hyperlipidemia History of OBSTRUCTIVE SLEEP APNEA 82384141 (SNOMED CT) Active 06/14 Leann Stewart Obstructive sleep apnea syndrome Medications Medication Instructions Start Date Stop Date Generic Name ND Provider ADVAIR HFA 115-21 MCG/ACT AERO 2 PUFFS Q12H FLUTICASONE-SALME TEROL 18906483239 Nima Coleman MD KLOR-CON M20 20 MEQ CR-TABS 1 tab daily POTASSIUM CHLORIDE JESUS CR 95799494678 Nima Coleman MD PAXIL 20 MG TABS 1 TAB DAILY PAROXETINE HCL 57587538585 Nima Coleman MD CILOSTAZOL 100 MG TABS Take 1 tablet by mouth twice a day CILOSTAZOL 46271227734 Nima Coleman MD LANCETS MICRO THIN 33G FOR GLUC TESTING 1-2 TIMES / DAY LANCETS 87759701381 Nima Coleman MD RELION CONFIRM/MICRO TEST STRP FOR GLUC TESTING 1-2 TIMES / DAY GLUCOSE BLOOD 24519488286 Nima SETH CONFIRM GLUCOSE MONITOR w/Device KIT USE FOR CHECKING GLUC 1-2 TIMES / DAY BLOOD GLUCOSE MONITORING SUPPL 98820447088 Nima Coleman MD PAXIL 10 MG TABS 1 TAB DAILY PAROXETINE HCL 03741911360 Nima Coleman MD SIMVASTATIN 40 MG TABS qd SIMVASTATIN 35624618260 Nima Coleman MD METFORMIN HCL 500 MG TABS Take 1 tablet by mouth twice a day with breakfast and dinner METFORMIN HCL 92710986712 Nima Coleman MD VITAMIN D3 125 MCG (5000 UT) TABS 1 TAB DAILY CHOLECALCIFEROL 72302750068 Nima Coleman MD B-12 1000 MCG CAPS Take 1 capsule by mouth daily CYANOCOBALAMIN 94093707164 Nima Coleman MD VITAMIN D3 1.25 MG (86947 UT) CAPS Take 1 capsule by mouth daily CHOLECALCIFEROL 77320328335 Nima Coleman MD RANITIDINE HCL 150 MG ORAL TABLET 1 TAB QAM & 1 QHS RANITIDINE HCL 86680209188 Nima Coleman MD PROTONIX 40 MG PACK 1 TAB DAILY 08/03 PANTOPRAZOLE SODIUM 84871100686 Nima Coleman MD REQUIP 1 MG ORAL TABLET 1 TAB QHS ROPINIROLE HCL 40743436548 Nima Coleman MD VENTOLIN HFA 108 (90 Base) MCG/ACT AERS 2 PUFFS Q4H PRN ALBUTEROL SULFATE 45912976457 Nima Coleman MD PROTONIX 40 MG PACK 1 TAB DAILY PANTOPRAZOLE SODIUM 00936289960 Nima Coleman MD SYMBICORT 80-4.5 MCG/ACT AERO 2 PUFFS BID BUDESONIDE-FORMOT SHARDA FUMARATE 41078898596 Nima Coleman MD LASIX 40 MG TABS bid FUROSEMIDE 54059538086 Nima Coleman MD SYMBICORT 80-4.5 MCG/ACT AERO 2 PUFFS BID 10/02 BUDESONIDE-FORMOT SHARDA FUMARATE 05937351009 Preston Delatorre VENTOLIN HFA 108 (90 Base) MCG/ACT AERS 1-2 puffs qid prn 10/02 ALBUTEROL SULFATE 75893191443 Preston Delatorre REQUIP 1 MG ORAL TABLET 1 po qhs 10/02 ROPINIROLE HCL 47412445297 Preston Delatorre REQUIP 0.5 MG ORAL TABLET 1 TAB 2 HRS BEFORE SLEEP X 14 DAYS; THEN 2 TABS OR #1 1 MG TAB QPM ROPINIROLE HCL 23233478632 Nima Coleman MD SYMBICORT 80-4.5 MCG/ACT AERO 2 PUFFS BID BUDESONIDE-FORMOT SHARDA FUMARATE 39712078009 Nima Coleman MD PROTONIX 40 MG PACK 1 QD PANTOPRAZOLE SODIUM 74011920142 Preston Delatorre PROVENTIL HFA 108 (90 Base) MCG/ACT INHALATION AEROSOL SOLUTION ALBUTEROL SULFATE 05286598956 Nima Coleman MD ASPIRIN LOW DOSE TBEC ASPIRIN TBEC 55780880665 Nima Coleman MD K-DONOVAN 20 MEQ PACK 1 TAB QD POTASSIUM CHLORIDE Nima Coleman MD SIMVASTATIN 40 MG TABS qd SIMVASTATIN 38471361502 Nima Coleman MD LASIX 40 MG TABS bid FUROSEMIDE 39860081768 Nima Coleman MD PROVENTIL HFA 108 (90 Base) MCG/ACT INHALATION AEROSOL SOLUTION 1-2 puffs q 4-6 hours prn cough/wheeze. 05/19 ALBUTEROL SULFATE 17331583306 Nithya VanAirsdale FASHION PATTERNMAKER PROTONIX 40 MG PACK 1 po qd 05/19 PANTOPRAZOLE SODIUM 65365875925 Nithya VanAirsdale FASHION PATTERNMAKER K-DONOVAN 20 MEQ PACK 1 po qd 05/19 POTASSIUM CHLORIDE 53897687236 Nithya VanAirsdale FASHION PATTERNMAKER LASIX 40 MG TABS 1 po bid 05/19 FUROSEMIDE 09734250735 Nithya VanAirsdale FASHION PATTERNMAKER SIMVASTATIN 40 MG TABS 1 po qd 05/19 SIMVASTATIN 60761241056 Nithya VanAirsdale FASHION PATTERNMAKER Medications Administered No information available. 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 Surgery, [address] [place] [address] [address], [address] Referral General Surgery Referral St Physician General Surgery # [address] [facility] General Surgery, [address] [place] [address] [address], [address] Referral Ophthamology Opt ometry Referral [facility] Sight, [facility] for, [address] [place] [address], [address] Referral Podiatry Referra shanika LORA Barnworker [employer]room [facility], [address] [place] [address], [address] Pending order Medication Recon ciliation Pending order Lipid Panel Pending order TSH reflex to fr ee T4 Pending order Vitamin D 25 Hyd sky Pending order CMP Pending order HGBA1c Pending order CBC no diff Pending order SNOMED-CT: 73918 3000 Smoking Cessation Counseling Pending order SNOMED-CT: 04785 5284324110 Current Medications Documented Pending order Vitamin D [...] Procedures Code Procedure Name Date Entry Date CPT-67452 Pulse Ox for O2 Saturation; single 61601 [facility]-[id number] Medication Reconciliation SCT-[id number] SNOMED-CT: 285445887 Smoking Cessation Counseling SCT-[id number] SNOMED-CT: 431301462 579877 Current Medications Documented 72488 [facility] # Lipid Panel 3 12559 [facility] # TSH reflex to free T4 96190 [facility] # Vitamin D 25 Hydroxy 2 93794 [facility] # CMP 3 496 [facility] # HGBA1c [facility]# 1759 CBC no diff GEN SX PRE SX General Surgery Refe rral St E Physician General Surgery # 1 [place] [address] [facility] # Lipid Panel 1 14543 [facility] # CMP 1 496 [facility] # HGBA1c 08908 [facility] # Vitamin D 25 Hydroxy 2 52781 [facility] # Lipid Panel 1 07561 [facility] # CMP 1 496 [facility] # HGBA1c 81587 [facility] # Vitamin D 25 Hydroxy 2 PODIATRY Foot Specia Podiatry [place]erral [place] [facility] PODIATRY Foot Specia Podiatry Referral N [place] [facility] GEN SX PRE SX General Surgery Refe rral St E Physician General Surgery # 1 [place] GEN SX PRE SX General Surgery Refe rral St E Physician General Surgery # 1 [place] [address] [facility] # BMP 2 496 [facility] # HGBA1c [facility] Ophthamology Optomet ry Referral [facility] [address] [facility] # Lipid Panel 4 496 [facility] # HGBA1c 13435 [facility] # BMP 4 927 [facility] # B12 [facility]# 1759 CBC no diff 20789 [facility] # CMP 9 29051 [facility] # TSH reflex to free T4 26308 [facility] # Vitamin D 25 Hydroxy 2 CPT-98870 Venipuncture CPT-60416 B12 (Outside Lab) CPT-36538 Lipid Panel (Outside Lab) 02/07/22 CPT-69099 BMP (Outside Lab) CPT-G0103 Prostate Screening (Outside Lab) CPT-23663 Vitamin D 25 Hydroxy (Outside Lab) 06/26 [...] Co de Dose Zostavax Subcutaneous Solution Reconstituted 19965 UNT/0.65ML ([facility] [id number]) Zoster 121 Unknown Advance Directives No information available.
--- NOTE | 2024-09-23 15:00 | CA_ITS ---
FINAL REPORT CLINICAL HISTORY: Smoker, HTN, Leg weakness, Trophic nails FINDINGS: BILATERAL LOWER EXTREMITY DUPLEX DOPPLER Color Doppler and duplex Doppler of the bilateral lower extremity was performed. Spectral analysis was also performed. Velocities were measured at multiple levels. All velocities are in centimeters per second. RIGHT GROUNDS RESTORATION SPECIALIST: 158 Prof: 200 SFA Distal: Occluded GEOTECHNICAL LABORATORY TECHNICIAN Mid: 70 GEOTECHNICAL LABORATORY TECHNICIAN Dist: 62 GAYLE: 25 HAILEE: 0.75 Waveforms are monophasic LEFT GROUNDS RESTORATION SPECIALIST: 104 Prof: 163 SFA Distal: 74 GEOTECHNICAL LABORATORY TECHNICIAN Mid: 45 GEOTECHNICAL LABORATORY TECHNICIAN Dist: 71 Per Prox: 69 HAILEE: 0.6 Waveforms are monophasic IMPRESSION: Occluded SFAs bilaterally with monophasic waveforms distally. Catheter directed angiography recommended to better define arterial anatomy. Reviewed, Interpreted and Dictated by Kyle Benitez MD Transcribed by Shelia Diaz Authenticated and [facility]
== END 2024-09-23 23:59 | disposition home or self-care (01) ==
LOC: RT 14:04
PROVIDERS: PCP Nurse Practitioner Family; Visit Provider Nurse Practitioner Family
DX: I70.203 Unspecified atherosclerosis of native arteries of extremities, bilateral legs (principal); L65.9 Nonscarring hair loss, unspecified; F17.200 Nicotine dependence, unspecified, uncomplicated; I10 Essential (primary) hypertension
CPT/HCPCS: 93925

== ENCOUNTER 2024-09-30 21:41 | Emergency (ER) | payer MEDICARE, SELFPAY ==
[2024-09-30 21:49] VITALS: BP 163/82; PULSE 94; RESP 14; TEMP 36.9; O2SAT 98; BMI 28.5
--- OUTSIDE RECORDS SUMMARY | 2024-09-30 21:54 | XMS_ITS | Clinical Summary ---
Author Organization [facility] Address [address] [place] [address] Phone Care Team Providers Care General Intern Name Role Phone Nima Coleman MD Primary Care Physician [ ] Conditions or Problems Problem Name Problem Code Onset Date Status Entry Date Provider Comment Standard Description Annotate Peripheral vascular disease 503381873 (SNOMED CT) 06/15 Active 06/15 Nima Coleman MD Peripheral vascular disease Depression 88928360 (SNOMED CT) 06/15 Active 06/15 Nima Coleman MD Depressive disorder SEBACEOUS CYST 726104201 (SNOMED CT) 11/16 Active 11/16 Nima Coleman [...] reading, without diagnosis of hypertension OBESITY NOS 419960383 (SNOMED CT) 08/03 Active 08/03 Nima Coleman MD Obesity RESTLESS LEG SYNDROME 96708783 (SNOMED CT) 08/03 Active 08/03 Nima Coleman MD Restless legs VITAMIN D DEFICIENCY 12945375 (SNOMED CT) 04/20 Active 04/20 Nima Coleman MD Vitamin D deficiency TOBACCO USE DIS F17.200 (ICD-10-CM ) 06/26 Active 06/26 Nima Coleman MD Nicotine dependence, unspecified, uncomplicated PERIPHERAL EDEMA 157172261 (SNOMED CT) 06/26 Active 06/26 Nima Coleman MD Peripheral edema GERD 353871992 (SNOMED CT) 06/26 Active 06/26 Nima Coleman MD Gastroesophageal reflux disease COPD 33902375 (SNOMED CT) 06/26 Active 06/26 Nima Coleman MD Chronic obstructive pulmonary disease HYPERLIPIDEMI A 95961515 (SNOMED CT) Active 06/14 Leann Stewart Hyperlipidemia History of OBSTRUCTIVE SLEEP APNEA 05506679 (SNOMED CT) Active 06/14 Leann Stewart Obstructive sleep apnea syndrome Medications Medication Instructions Start Date Stop Date Generic Name ND Provider ADVAIR HFA 115-21 MCG/ACT AERO 2 PUFFS Q12H FLUTICASONE-SALME TEROL 75412659799 Nima Coleman MD KLOR-CON M20 20 MEQ CR-TABS 1 tab daily POTASSIUM CHLORIDE JESUS CR 11124830765 Nima Coleman MD PAXIL 20 MG TABS 1 TAB DAILY PAROXETINE HCL 32977219246 Nima Coleman MD CILOSTAZOL 100 MG TABS Take 1 tablet by mouth twice a day CILOSTAZOL 40946897856 Nima Coleman MD LANCETS MICRO THIN 33G FOR GLUC TESTING 1-2 TIMES / DAY LANCETS 73172891969 Nima Coleman MD RELION CONFIRM/MICRO TEST STRP FOR GLUC TESTING 1-2 TIMES / DAY GLUCOSE BLOOD 58560000602 Nima SETH CONFIRM GLUCOSE MONITOR w/Device KIT USE FOR CHECKING GLUC 1-2 TIMES / DAY BLOOD GLUCOSE MONITORING SUPPL 93377728144 Nima Coleman MD PAXIL 10 MG TABS 1 TAB DAILY PAROXETINE HCL 21069697446 Nima Coleman MD SIMVASTATIN 40 MG TABS qd SIMVASTATIN 97384902546 Nima Coleman MD METFORMIN HCL 500 MG TABS Take 1 tablet by mouth twice a day with breakfast and dinner METFORMIN HCL 97784785871 Nima Coleman MD VITAMIN D3 125 MCG (5000 UT) TABS 1 TAB DAILY CHOLECALCIFEROL 19021740839 Nima Coleman MD B-12 1000 MCG CAPS Take 1 capsule by mouth daily CYANOCOBALAMIN 22152023344 Nima Coleman MD VITAMIN D3 1.25 MG (72147 UT) CAPS Take 1 capsule by mouth daily CHOLECALCIFEROL 27477078921 Nima Coleman MD RANITIDINE HCL 150 MG ORAL TABLET 1 TAB QAM & 1 QHS RANITIDINE HCL 19162183806 Nima Coleman MD PROTONIX 40 MG PACK 1 TAB DAILY 08/03 PANTOPRAZOLE SODIUM 37344184752 Nima Coleman MD REQUIP 1 MG ORAL TABLET 1 TAB QHS ROPINIROLE HCL 97435010892 Nima Coleman MD VENTOLIN HFA 108 (90 Base) MCG/ACT AERS 2 PUFFS Q4H PRN ALBUTEROL SULFATE 39716411712 Nima Coleman MD PROTONIX 40 MG PACK 1 TAB DAILY PANTOPRAZOLE SODIUM 76454173491 Nima Coleman MD SYMBICORT 80-4.5 MCG/ACT AERO 2 PUFFS BID BUDESONIDE-FORMOT SHARDA FUMARATE 09030616065 Nima Coleman MD LASIX 40 MG TABS bid FUROSEMIDE 35877895694 Nima Coleman MD SYMBICORT 80-4.5 MCG/ACT AERO 2 PUFFS BID 10/02 BUDESONIDE-FORMOT SHARDA FUMARATE 95820037744 Preston Delatorre VENTOLIN HFA 108 (90 Base) MCG/ACT AERS 1-2 puffs qid prn 10/02 ALBUTEROL SULFATE 57496997825 Preston Delatorre REQUIP 1 MG ORAL TABLET 1 po qhs 10/02 ROPINIROLE HCL 98482024592 Preston Delatorre REQUIP 0.5 MG ORAL TABLET 1 TAB 2 HRS BEFORE SLEEP X 14 DAYS; THEN 2 TABS OR #1 1 MG TAB QPM ROPINIROLE HCL 23086929920 Nima Coleman MD SYMBICORT 80-4.5 MCG/ACT AERO 2 PUFFS BID BUDESONIDE-FORMOT SHARDA FUMARATE 62533246940 Nima Coleman MD PROTONIX 40 MG PACK 1 QD PANTOPRAZOLE SODIUM 45976278007 Preston Delatorre PROVENTIL HFA 108 (90 Base) MCG/ACT INHALATION AEROSOL SOLUTION ALBUTEROL SULFATE 18408559862 Nima Coleman MD ASPIRIN LOW DOSE TBEC ASPIRIN TBEC 31917095464 Nima Coleman MD K-DONOVAN 20 MEQ PACK 1 TAB QD POTASSIUM CHLORIDE Nima Coleman MD SIMVASTATIN 40 MG TABS qd SIMVASTATIN 38394534079 Nima Coleman MD LASIX 40 MG TABS bid FUROSEMIDE 66476246986 Nima Coleman MD PROVENTIL HFA 108 (90 Base) MCG/ACT INHALATION AEROSOL SOLUTION 1-2 puffs q 4-6 hours prn cough/wheeze. 05/19 ALBUTEROL SULFATE 92524682042 Nithya VanAirsdale LADLE BUILDER PROTONIX 40 MG PACK 1 po qd 05/19 PANTOPRAZOLE SODIUM 73921407044 Nithya VanAirsdale LADLE BUILDER K-DONOVAN 20 MEQ PACK 1 po qd 05/19 POTASSIUM CHLORIDE 50297672224 Nithya VanAirsdale LADLE BUILDER LASIX 40 MG TABS 1 po bid 05/19 FUROSEMIDE 44981306332 Nithya VanAirsdale LADLE BUILDER SIMVASTATIN 40 MG TABS 1 po qd 05/19 SIMVASTATIN 31520347138 Nithya VanAirsdale LADLE BUILDER Medications Administered No information available. 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 Results Date Name Value Unit Range Flag [...] in Blood ABS NEUTROPH 4563 CELLS/UL 10*3/uL 5355-5724 N Neutrophils [#/volume] in Blood MPV 8.0 [...] Referral St Physician General Surgery # 1 [facility] Surgery, [address] [place] [address] [address], [place], [address] Referral General Surgery Referral St Physician General Surgery # 1 [facility] General Surgery, [address] [place] [address] [address], [place], [address] Referral Ophthamology Opt ometry Referral [facility] for Sight Sight, [facility] for, [address] [place] [address], [address] Referral Podiatry Referra shanika LORA Molder [employer] [facility], [address] [place] [address], [address] Pending order Medication Recon ciliation Pending order Lipid Panel Pending order TSH reflex to fr ee T4 Pending order Vitamin D 25 Hyd sky Pending order CMP Pending order HGBA1c Pending order CBC no diff Pending order SNOMED-CT: 07970 3000 Smoking Cessation Counseling Pending order SNOMED-CT: 06603 5442745300 Current Medications Documented Pending order Vitamin D [...] Procedures Code Procedure Name Date Entry Date CPT-58694 Pulse Ox for O2 Saturation; single 97665 [facility]-[id number] Medication Reconciliation SCT-027149081 SNOMED-CT: 839303465 Smoking Cessation Counseling SCT-608440105139282 SNOMED-CT: 617976196 087037 Current Medications Documented 93549 [facility] # Lipid Panel 3 85296 [facility] # TSH reflex to free T4 51786 [facility] # Vitamin D 25 Hydroxy 2 85661 [facility] # CMP 3 496 [facility] # HGBA1c [facility]# 1759 CBC no diff GEN SX PRE SX General Surgery Refe rral St E Physician General Surgery # 1 [place] [address] [facility] # Lipid Panel 1 48432 [facility] # CMP 1 496 [facility] # HGBA1c 78407 [facility] # Vitamin D 25 Hydroxy 2 67389 [facility] # Lipid Panel 1 05350 [facility] # CMP 1 496 [facility] # HGBA1c 93090 [facility] # Vitamin D 25 Hydroxy 2 PODIATRY Foot Specia Podiatry Referral [place] [facility] PODIATRY Foot Specia Podiatry Referral N [place] Foot Spec[place] alist GEN SX PRE SX General Surgery Refe rral St E Physician General Surgery # 1 [place] GEN SX PRE SX General Surgery Refe rral St E Physician General Surgery # 1 [place] [address] [facility] # BMP 2 496 [facility] # HGBA1c [facility] Ophthamology Optomet ry Referral [facility] [address] [facility] # Lipid Panel 4 496 [facility] # HGBA1c 64232 [facility] # BMP 4 927 [facility] # B12 [facility]# 1759 [place] [address] [facility] # CMP 9 90774 [facility] # TSH reflex to free T4 13745 [facility] # Vitamin D 25 Hydroxy 2 CPT-64915 Venipuncture CPT-10688 B12 (Outside Lab) CPT-21860 Lipid Panel (Outside Lab) 02/07/22 CPT-23251 BMP (Outside Lab) CPT-G0103 Prostate Screening (Outside Lab) CPT-55594 Vitamin D 25 Hydroxy (Outside Lab) 06/26 [...] Co de Dose Zostavax Subcutaneous Solution Reconstituted 97945 UNT/0.65ML ([facility] [id number]) Zoster 121 Unknown Advance Directives No information available.
--- NOTE | 2024-09-30 22:27 | CT_ITS ---
PROCEDURE INFORMATION: Exam: CT Head Without Contrast Exam date and time: 09/30/2024 10:39 PM Age: 69 years old Clinical indication: Injury or trauma; Fall; Additional info: Fall age >65 back pain TECHNIQUE: Imaging protocol: Computed tomography of the head without contrast. Radiation optimization: All CT scans at this facility use at least one of these dose optimization techniques: automated exposure control; mA and/or kV adjustment per patient size (includes targeted exams where dose is matched to clinical indication); or iterative reconstruction. COMPARISON: CT HEAD/BRAIN WO CON 05/06/2024 1:07 PM FINDINGS: Brain: Volume loss of the brain parenchyma. Cerebral ventricles: Prominent ventricles, probably related to volume loss. Paranasal sinuses: Inflammatory changes in the sinuses. Mastoid air cells: Visualized mastoid air cells are well aerated. Bones: No acute fracture. Soft tissues: The visualized soft tissue is grossly unremarkable. IMPRESSION: No evidence of acute intracranial hemorrhage.
--- NOTE | 2024-09-30 22:27 | CT_ITS ---
PROCEDURE INFORMATION: Exam: CT Cervical Spine Without Contrast Exam date and time: 09/30/2024 10:41 PM Age: 69 years old Clinical indication: Injury or trauma; Fall; Additional info: Fall age >65 back pain TECHNIQUE: Imaging protocol: Computed tomography of the cervical spine without contrast. Radiation optimization: All CT scans at this facility use at least one of these dose optimization techniques: automated exposure control; mA and/or kV adjustment per patient size (includes targeted exams where dose is matched to clinical indication); or iterative reconstruction. COMPARISON: CT CERVICAL SPINE WO CON 05/06/2024 1:10 PM FINDINGS: Bones: Degenerative changes. Visualized vertebral body heights are preserved. Oral cavity: Indeterminate soft tissue fullness at the base of the tongue can not exclude mass lesion. Soft tissues: Unremarkable. IMPRESSION: 1. Indeterminate soft tissue fullness at the base of the tongue can not exclude mass lesion. Recommend direct visualization.Recommend ENT consult. Straightening of cervical lordosis, nonspecific possibly positional or muscle spasm. 2. Visualized vertebral body heights are preserved. If symptoms persist or spinal cord compression or nerve root compression is a concern clinically, correlation with MRI is necessary.
--- NOTE | 2024-09-30 22:27 | CT_ITS ---
PROCEDURE INFORMATION: Exam: CT Lumbar Spine Without Contrast Exam date and time: 09/30/2024 10:45 PM Age: 69 years old Clinical indication: Injury or trauma; Fall; Additional info: Fall age >65 back pain TECHNIQUE: Imaging protocol: Computed tomography of the lumbar spine without contrast. Radiation optimization: All CT scans at this facility use at least one of these dose optimization techniques: automated exposure control; mA and/or kV adjustment per patient size (includes targeted exams where dose is matched to clinical indication); or iterative reconstruction. COMPARISON: CT LUMBAR SPINE WO CON 09/10/2024 12:20 PM FINDINGS: Bones/joints: No acute fracture. Minimal chronic L1 vertebral body height loss. No bony retropulsion. Normal alignment. Multilevel degenerative disc and joint space changes most pronounced at L4/5 and L5/S1. Soft tissues: Unremarkable. IMPRESSION: No acute findings identified.
--- NOTE | 2024-09-30 22:27 | CT_ITS ---
PROCEDURE INFORMATION: Exam: CT Thoracic Spine Without Contrast Exam date and time: 09/30/2024 10:43 PM Age: 69 years old Clinical indication: Injury or trauma; Fall; Additional info: Fall age >65 back pain TECHNIQUE: Imaging protocol: Computed tomography of the thoracic spine without contrast. Radiation optimization: All CT scans at this facility use at least one of these dose optimization techniques: automated exposure control; mA and/or kV adjustment per patient size (includes targeted exams where dose is matched to clinical indication); or iterative reconstruction. COMPARISON: CT CERVICAL SPINE WO CON 09/30/2024 10:41 PM FINDINGS: Bones/joints: No acute fracture. Normal alignment. Vertebral body heights grossly preserved. Normal bony density. Soft tissues: Unremarkable. IMPRESSION: No acute findings identified.
[2024-09-30] MEDS: LIDOCAINE 5% TRANSDERMAL PATCH 1 EACH TD (22:35)
[2024-09-30] MEDS: ACETAMINOPHEN 500MG TAB 1000 MG PO (22:35)
[2024-09-30] MEDS: IBUPROFEN 400 MG TABLET 800 MG PO (22:36)
[2024-09-30] MEDS: METHOCARBAMOL 500MG TABLET 500 MG PO (22:36)
--- NOTE | 2024-09-30 23:21 | ED_ITS ---
Discharge Plan Disposition Patient Disposition: Home, Self-Care Condition: Good Prescriptions Prescriptions: New permethrin 5 % cream 1 applic topical Q14D Qty: 60 0RF Rx Instructions: apply second treatment 14 days after first treatment if rash persists. Leave on 8-14 hours before washing off. hydrocortisone 1 % cream 1 applic topical BID PRN (Reason: itching) Qty: 28.4 0RF No Action methocarbamol 500 mg tablet 500 mg PO Q8H PRN (Reason: pain) Qty: 30 0RF Breztri Aerosphere 160-9-4.8 mcg/actuation HFA aerosol inhaler 2 inh inhalation BID Qty: 10.7 2RF metformin 500 mg tablet 500 mg PO BID Qty: 60 2RF rosuvastatin 10 mg tablet 10 mg PO DAILY Qty: 30 2RF albuterol sulfate 90 mcg/actuation HFA aerosol inhaler 2 puff inhalation Q4-6H PRN (Reason: shortness of breath or wheezing) Qty: 6.7 1RF (DME) blood-glucose meter Kit See Rx Instructions .Route Qty: 1 0RF Rx Instructions: As directed once daily (DME) lancets [Accu-Chek Softclix Lancets] Misc See Rx Instructions .Route Qty: 100 3RF Rx Instructions: As directed once daily (DME) blood sugar diagnostic Strip See Rx Instructions .Route Qty: 100 3RF Rx Instructions: As directed once daily losartan 25 mg tablet See Rx Instructions .ROUTE .COMPLEX Qty: 90 0RF Dose Instruction: Take 1 tablet by mouth once daily Rx Instructions: Take 1 tablet by mouth once daily dapagliflozin propanediol [Farxiga] 10 mg tablet 10 mg PO DAILY Qty: 90 1RF nystatin 100,000 unit/mL suspension 1 ml PO QID 10 Days Qty: 40 0RF Rx Instructions: swish and swallow acetaminophen [Tylenol 8 Hour] 650 mg tablet extended release 650 mg PO Q8H PRN (Reason: pain) Qty: 20 0RF ibuprofen 600 mg tablet 600 mg PO Q8H PRN (Reason: pain) Qty: 20 0RF losartan 25 mg tablet 25 mg PO DAILY Qty: 30 0RF Referrals Follow up/Referrals: Denisse Mccabe APRN [Nurse Practitioner, Ear, Nose, Throat] - See instructions Elia Cho DO [Primary Care Provider, Family Practice] - See instructions Activity Restrictions/Add. Instructions Additional Instructions/Restrictions: You were evaluated in the emergency department today. For your rash, we are prescribing a topical cream as well as a topical wash. Please follow instructio ns. Make sure you wash all bedding and linens. For your back pain, please take Tylenol and ibuprofen. There is no broken bones on CT scan today. You have some nonspecific swelling at the base of your tongue on CT scan, for which radiology recommends close follow-up with ENT. Return to the emergency department for new or worsening symptoms. Clinical Impressions Clinical Impression: Pruritic erythematous rash, Fall, Back pain Instructions Patient Instructions: Low Back Pain, DI for Rash, DI for Itching Print Language Print Language: Estonian Discharge ED Provider: Jen Brito General Adult HPI General Chief complaint: Skin/Abscess/Foreign Body Stated complaint: Rash on both arms,itches Time Seen by Provider: 09/30/24 22:17 Mode of Arrival: Family Vehicle Source of Information: Patient Description of Symptoms (Recalled from ER Triage Doc. by RN): Rash and back pain Pt presents to the ED with c/o a itchy and raised rash to his bilateral arms X 2 days. Pt reports that the rash appeared after cutting grass. Pt states Pt also c/o mid back pain after a fall X 4 days ago. History of Present Illness HPI narrative: This patient is a 69-year-old male with a history of type 2 diabetes, hypertension, COPD, PAD presenting to the emergency department for evaluation with concern for an itchy red rash on both of his arms. He is not sure if he got into something when he was outside mowing or what could have happened. He also notes that he had a fall 4 days ago directly onto his back and has had low back pain since then. He did not hit his head or lose consciousness. He denies use of blood thinners. No one else at home has a rash. He denies any fevers, chills, or other concerns. He has otherwise been well. Related Data Previous Rx's ?Medication ?Instructions ?Recorded nystatin 100,000 unit/mL oral 1 ml PO QID 10 days #40 mL 11/30/23 suspension albuterol sulfate 90 mcg/actuation 2 puff inhalation Q 4-6H PRN 12/05/23 aerosol inhaler shortness of breath or wheez ing #6.7 grams blood sugar diagnostic #100 ea 12/09/23 blood-glucose meter #1 ea 12/09/23 lancets (Accu-Chek Softclix #100 ea 12/09/23 Lancets) losartan 25 mg tablet 25 mg PO DAILY #30 tabs 04/09 losartan 25 mg tablet See Rx Instructions .Route 0 07/09/24 .COMPLEX #90 tabs acetaminophen 650 mg 650 mg PO Q8H PRN pain #20 t abs 09/10/24 tablet,extended release (Tylenol 8 Hour) ibuprofen 600 mg tablet 600 mg PO Q8H PRN pain #20 t abs 09/10/24 budesonide 160 mcg-glycopyr 9 2 inh inhalation BID #10 .7 grams 09/14/24 mcg-formot 4.8 mcg/actuation HFA inhaler (Breztri Aerosphere) metformin 500 mg tablet 500 mg PO BID #60 tabs 09/14 methocarbamol 500 mg tablet 500 mg PO Q8H PRN pain #30 tabs 09/14/24 rosuvastatin 10 mg tablet 10 mg PO DAILY #30 tabs 09/05 dapagliflozin propanediol 10 mg 10 mg PO DAILY #90 tab s 09/24/24 tablet (Farxiga) hydrocortisone 1 % topical cream 1 applic topical BID PRN itching 09/30/24 #28.4 grams permethrin 5 % topical cream 1 applic topical Q14D 2 d oses #60 09/30/24 grams Allergies Allergy/AdvReac Type Severity Reaction Status Date / Time Penicillins (PENICILLINS) Allergy Unknown Rash Verified 09/30/24 21:54 [facility] Disclaimer: The information contained in this section may have been updated after the patient was seen, as this information can be updated by other users. Medical History Diabetes mellitus Hypertension COPD (chronic obstructive pulmonary disease) Surgical History History of colonoscopy Hx of cholecystectomy History of appendectomy Family History Other Family history of COPD (chronic obstructive pulmonary disease) Social History Smoking Status: Current every day smoker tobacco type: cigarettes packs per day: 1 second hand exposure: No alcohol intake: never substance use type: denies use current occupational status: other Travel in the last 8 weeks?: None Have you lived/traveled outside US in past 30 days?: No Contact w/someone who lives/traveled outside US past 30 days?: No Exposure to someone with infectious disease in past 14 days?: No Do you have a fever (greater than 100.4 F or 38 C)?: No Have you tested positive for COVID-19?: No Exposed to someone with COVID-19 in past 14 days?: No Do you have a sore throat?: No Do you have a cough?: No Do you have any weakness?: No Do you have any diarrhea?: No Are you experiencing any unusual bleeding?: No Do you have any muscle aches/pain?: Yes Do you have any abdominal pain?: No Are you experiencing loss of taste or smell?: No Other Medical History Have you received the Flu Vaccine for this season: Yes Have you received the Pneumonia Vaccine: Yes ROS Obtained: Yes All systems reviewed & no additional complaints except as documented Physical Exam General General appearance: alert and in no apparent distress Head Head exam: atraumatic and normocephalic Eye Eye exam: Present normal appearance, PERRL and EOMI ENT ENT exam: Present normal exam, normal oropharynx, mucous membranes moist and normal external ear exam Neck Neck exam: Present normal inspection, full ROM and trachea midline; Absent tenderness Chest Chest inspection: Present normal inspection and symmetric chest wall rise; Absent tenderness Respiratory Respiratory exam: Present normal lung sounds bilaterally; Absent respiratory distress, wheezes, stridor or accessory muscle use Cardiovascular Cardiovascular exam: Present regular rate and normal rhythm Abdominal Exam Abdominal exam: Present soft; Absent distention, tenderness or guarding Extremities Exam Extremities exam: Present normal inspection, full ROM and normal capillary refill; Absent tenderness or edema Back Exam Back exam: Present full ROM and tenderness (Lumbar spine) Neurological Exam Neurological exam: Present alert, oriented X3, CN II-XII intact and normal gait; Absent motor sensory deficit Psychiatric Psychiatric exam: Present normal affect and normal mood Skin Skin exam: Present warm, dry and rash (Excoriated erythematous maculopapular vesicular rash to the bilateral upper extremities, especially by the forearms and antecubital fossa. No bullae, sloughing, mucosal, or palmar involvement) Medical Decision Making Medical Records Medical records reviewed: Yes I reviewed the patient's medical records. Screening: Per USPSTF and CDC recommendations, given the prevalence of disease in our region, it is our hospital?s policy to screen for HIV and viral Hepatitis for all patients aged 18 and over and those with ongoing risk factors. Daniel Inquiry Pt receiving controlled substance: No Vital Signs: 09/30/24 21:49 09/30/24 23:30 Temperature 98.4 F Temperature Source Oral Pulse Rate 74 Pulse Rate [Right] 94 H Respiratory Rate 14 16 Blood Pressure 173/88 H Blood Pressure [Left Arm] 163/82 H Blood Pressure Mean [Left Arm] 109 Blood Pressure Source [Left Arm] Automatic Cuff Blood Pressure Position [Left Arm] Sitting 02 Sat by Pulse Oximetry 98 99 Oxygen Delivery Method Room Air Lab Data Lab results reviewed: Yes I reviewed the patient's lab results. Orders (Tests/Meds): ED MEDICATIONS Discontinued Medications Generic Name Dose Route Start Last Admin Trade Name Shayan PRN Reason Stop Dose Admin Acetaminophen 1,000 mg 09/30/24 22:29 09/30/24 22:35 Acetaminophen 500mg Tab PO 09/30/24 22:30 1,000 mg ONCE ONE Administration Ibuprofen 800 mg 09/30/24 22:30 09/30/24 22:36 Ibuprofen 400 Mg Tablet PO 09/30/24 22:31 800 mg ONCE ONE Administration Lidocaine 1 each 09/30/24 22:29 09/30/24 22:35 Lidocaine 5% Transdermal Patch TD 09/30/24 22:30 1 each ONCE ONE Administration Methocarbamol 500 mg 09/30/24 22:30 09/30/24 22:36 Methocarbamol 500mg Tablet PO 09/30/24 22:31 500 mg ONCE ONE Administration ORDERS Category Date Time Status CT cervical spine wo con Stat Cat Scan 09/30/24 22:[address] head/brain wo con Stat Cat Scan 09/30/24 22:[address] lumbar spine wo con Stat Cat Scan 09/30/24 22:[address] thoracic spine wo con Stat Cat Scan 09/30/24 22:27 Completed Medical Decision Narrative: In summary, this patient is a 69-year-old male presenting to the Emergency Department for evaluation of itchy rash to both arms, back pain after a fall 4 days ago. Differential diagnoses considered include but are not limited to musculoskeletal strain/sprain, fracture, contusion, polytrauma, contact dermatitis, vasculitis, scabies, eczema, psoriasis. Ruling out the most morbid conditions drove assessment. It should be noted patient's history includes hypertension, diabetes, COPD, PAD which may not be at goal therapy. This complicates all aspects of care by increasing patient's risk for morbidity. I reviewed patient's past medical records and noted prior PCP and cardiology evaluations for maintenance of health. On exam, the patient is sitting up in no acute distress. He has low back pain with tenderness but is neurologically intact in his lower extremities with no alarm findings or symptoms suggestive of cauda equina syndrome or spinal cord compression. He has an itchy erythematous excoriated rash with vesicles and pustules on his bilateral upper extremities. No one else at home is the rash, but it is suspicious for possible scabies. Will treat with permethrin as well as with a topical steroid in case it could just be simply contact dermatitis. This will also help with the itching. He was given oral Tylenol, ibuprofen, Robaxin, and a topical Lidoderm patch for symptomatic improvement of his back pain. Workup included CT head, CT C/T/L-spine without contrast. I independently interpreted CT scan prior to the radiologist read and noted no acute fracture. Raghav sanchez see their read for final interpretation. The patient does have thickening at the base of his tongue, for which radiology recommended ENT follow-up. He was notified of this. At this time, I feel he is appropriate for discharge home with instructions for supportive care, prescription for permethrin and hydrocortisone. He was given instructions for close PCP and ENT follow-up. Strict return precautions were given Critical Care Critical Care Time Critical Care Time: No
[2024-09-30 23:30] VITALS: BP 173/88; PULSE 74; RESP 16; O2SAT 99
[2024-09-30 23:51] VITALS: BP 157/85; PULSE 77; RESP 14; TEMP 36.6; O2SAT 98
== END 2024-09-30 23:53 | disposition home or self-care (01) ==
PROVIDERS: Emergency Provider Emergency Medicine; PCP Internal Medicine
DX: M54.50 Low back pain, unspecified (principal); L29.9 Pruritus, unspecified; W19.XXXA Unspecified fall, initial encounter; F17.210 Nicotine dependence, cigarettes, uncomplicated
CPT/HCPCS: 70450; 72125; 72128; 72131; 99285

== ENCOUNTER 2025-01-30 19:53 | Emergency (ER) | payer MEDICARE, SELFPAY ==
[2025-01-30] VITALS (10 sets, daily range): BP systolic 142–185; BP diastolic 68–101; PULSE 90–99; RESP 16–29; TEMP 37; O2SAT 95–97; BMI 28.0
--- NOTE | 2025-01-30 19:55 | ECG_ITS ---
APPROVED REPORT Exam: Resting ECG HR:91 bpm ECG Measurements Heart Rate 91 AXES WY 172 P 17 QRSd 101 QRS 52 QT 369 T 9 QTc 418 Conclusion SINUS RHYTHM INCOMPLETE RIGHT BUNDLE BRANCH BLOCK [90+ ms QRS DURATION, TERMINAL R IN V1/V2, 40+ ms S IN I/aVL/V4/V5/V6] SEPTAL MYOCARDIAL INFARCTION , OF INDETERMINATE AGE [40+ ms Q WAVE IN V1/V2] ABNORMAL ECG UNCONFIRMED REPORT Electronically signed by : KARI TRIPATHI, 02/01/2025 06:31:02
--- OUTSIDE RECORDS SUMMARY | 2025-01-30 20:13 | XMS_ITS | Clinical Summary ---
Author Organization [facility] Address [address] [place] [address] Care Team Providers Care Enterprise Solutions Architect Name Role Phone Elizabeth Mensah APRN Primary Care Provider + [phone] Allergies Active Allergy Reactions Criticality Noted Date Comments Penicillins Unknown - Low Severity Low 04/15/2023 Medications losartan (COZAAR) 25 MG tablet Take 1 tablet by mouth Daily. Active empagliflozin (Jardiance) 10 MG tablet tablet Take 1 tablet by mouth Daily. Active metFORMIN (GLUCOPHAGE) 500 MG tablet Take 1 tablet by mouth 2 (Two) Times a Day With Meals. Active Fluticasone-Ume clidin-Vilant (Trelegy Ellipta) 100-62.5-25 MCG/ACT inhaler Inhale 1 puff Daily. Active albuterol sulfate HFA 108 (90 Base) MCG/ACT inhaler Inhale 2 puffs Every 4 (Four) Hours As Needed for Wheezing or Shortness of Air. Active Cholecalciferol (Vitamin D3) 1.25 MG (25320 UT) capsule Take 1 capsule by mouth 1 (One) Time Per Week. Active DULoxetine (CYMBALTA) 30 MG capsule Take 1 capsule by mouth Daily. for pain 30 capsule 5 Active Active Problems Problem Noted Date Diagnosed Date Poorly controlled diabetes mellitus 08/04/2024 Diabetic polyneuropathy asso ciated with type 2 diabetes mellitus 08/04/2024 Arthralgia of multiple sites 08/04/2024 Chronic foot pain 08/04/2024 Family History Medical History Relation Name Comments Arthritis Other Cancer Other Diabetes Other Heart disease Other Osteoporosis Other Relation Name Status Comments Other Social History Tobacco Use Types Packs/Day Years Used Date Smoking Tobacco: Every Day Cigarettes Smokeless Tobacco: Never Tobacco Cessation:Ready to Q uit: Not Asked; Counseling Given: Not Answered Alcohol Use Standard Drinks/Week Comments Never 0 (1 standard drink = 0.6 oz pur e alcohol) Sex and Gender Information Value Date Recorded Sex Assigned at Not on file Legal Sex Male 12:24 PM EST Gender Identity Not on file Sexual Orientation Not on file Last Filed Vital Signs Vital Sign Reading Time Taken Comments Blood Pressure 138/82 08/04/2024 11:28 AM EDT Pulse 95 08/04/2024 11:28 AM EDT Temperature 36.6 C (97.9 F) 08/04/2024 11:28 AM EDT Respiratory Rate - - Oxygen Saturation - - Inhaled Oxygen Concentration - - Weight 88.7 kg (195 lb 9.6 oz) 08/04/2024 11:28 AM EDT Height 175.3 cm (5' 9 ) 08/04/2024 11:28 AM EDT Body Mass Index 28.89 08/04/2024 11:28 AM EDT Plan of Treatment Upcoming Encounters Date Type Department Care Team (Late st Contact Info) Description 02/03/2025 1:30 PM EDT Office Visit [facility] [address] [id number] Reza Amanda MD [address] [facility] [address] [place], [place] [id number] Health Maintenance Due Date Last Done Comments COVID-19 Vaccine (#1) 1962 DIABETIC EYE EXAM 1967 DIABETIC FOOT EXAM 1967 URINE MICROALBUMIN-CREATININE RATIO (uACR) 1967 Pneumococcal Vaccine 50+ (1 of 2 - PCV) 1976 COLOGUARD 2002 COLON CANCER SCREENING 5 YEAR SIGMOIDOSCOPY 2002 COLONOSCOPY 2002 COL[address]AL CANCER SCREENING 2002 CT COLONOGRAPHY 2002 FECAL OCCULT BLOOD TEST 2002 FIT Testing (1 year) 2002 ZOSTER VACCINE (2 of 3) 03/30/2015 02/02/2015 AAA SCREEN ONCE 2022 ANNUAL WELLNESS VISIT 08/04/2024 INFLUENZA VACCINE 11/05/2024 04/15/2023 HEMOGLOBIN A1C 02/03/2025 08/04/2024 TDAP/TD VACCINES (2 - Td or Tdap) 11/29/2033 024 HEPATITIS C SCREENING Completed 08/04/2024 Procedures Procedure Name Priority Date/Time Associated Diagnosis Comments HEMOGLOBIN A1C Routine 08/04/2024 12:27 PM EDT Other fatigue Arthralgia of multiple sites Type 2 diabetes mellitus with hyperglycemia, unspecified whether chcf insulin use HEPATITIS PANEL, ACUTE Routine 08/04/2024 12:27 PM EDT Other fatigue Arthralgia of multiple sites from Last 3 Months or Most Recently Relevant to Health Maintenance Results * Hepatitis Panel, Acute (08/04/2024 12:27 PM EDT) Hepatitis B Surface Ag Non-Reacti ve Non-Reacti ve 08/04/2024 11:55 PM EDT [facility] Hep A IgM Non-Reacti ve Non-Reacti ve 08/04/2024 11:55 PM EDT [facility] Hep B C IgM Non-Reacti ve Non-Reacti ve 08/04/2024 11:55 PM EDT [facility] Hepatitis C Ab Non-Reacti ve Non-Reacti ve 08/04/2024 11:55 PM EDT [facility] Blood Venipuncture / Unknown 08/04/2024 12:27 PM EDT 08/04/2024 12:27 PM EDT Narrative [facility] - 08/04/2024 11:55 PM EDT Results may be falsely decreased if patient taking Biotin. us Reza Amanda MD LAB BLOOD ORDERABLES Final Result [facility]
[address] [place] [address], * (ABNORMAL) Hemoglobin A1c (08/04/2024 12:27 PM EDT) Hemoglobin A1C 11.20(H) 4.80 - 5.60 % 08/04/2024 11:51 PM EDT [facility] Blood Venipuncture / Unknown 08/04/2024 12:27 PM EDT 08/04/2024 12:27 PM EDT Narrative [facility] - 08/04/2024 11:51 PM EDT Hemoglobin A1C Ranges: Increased Risk for Diabetes 5.7% to 6.4% Diabetes >= 6.5% Diabetic Goal < 7.0% us Reza Amanda MD LAB BLOOD ORDERABLES Final Result [facility]
[address] [place] [address], from Last 3 Months or Most Recently Relevant to Health Maintenance Insurance Care Teams Enterprise Solutions Architect Relationship Specialty Start Date End Date Elizabeth Mensah APRN [facility] [place] [address] PCP - General Internal Medicine 04/12/24
--- OUTSIDE RECORDS SUMMARY | 2025-01-30 20:13 | XMS_ITS | Clinical Summary ---
Author Organization [employer] [facility] Address [address] [place] [address] Phone Care Team Providers Care Wax Pourer Name Role Phone Nima Coleman MD Primary Care Physician [ ] Conditions or Problems Problem Name Problem Code Onset Date Status Entry Date Provider Comment Standard Description Annotate Peripheral vascular disease 006830876 (SNOMED CT) 06/15 Active 06/15 Nima Coleman MD Peripheral vascular disease Depression 68113445 (SNOMED CT) 06/15 Active 06/15 Nima Coleman MD Depressive disorder SEBACEOUS CYST 737820302 (SNOMED CT) 11/16 Active 11/16 Nima Coleman [...] reading, without diagnosis of hypertension OBESITY NOS 882596409 (SNOMED CT) 08/03 Active 08/03 Nima Coleman MD Obesity RESTLESS LEG SYNDROME 40881172 (SNOMED CT) 08/03 Active 08/03 Nima Coleman MD Restless legs syndrome VITAMIN D DEFICIENCY 57995506 (SNOMED CT) 04/20 Active 04/20 Nima Coleman MD Vitamin D deficiency TOBACCO USE DIS F17.200 (ICD-10-CM ) 06/26 Active 06/26 Nima Coleman MD Nicotine dependence, unspecified, uncomplicated PERIPHERAL EDEMA 917289656 (SNOMED CT) 06/26 Active 06/26 Nima Coleman MD Peripheral edema GERD 724445431 (SNOMED CT) 06/26 Active 06/26 Nima Coleman MD Gastroesophageal reflux disease COPD 49134812 (SNOMED CT) 06/26 Active 06/26 Nima Coleman MD Chronic obstructive pulmonary disease HYPERLIPIDEMI A 38151053 (SNOMED CT) Active 06/14 Leann Stewart Hyperlipidemia History of OBSTRUCTIVE SLEEP APNEA 66243016 (SNOMED CT) Active 06/14 Leann Stewart Obstructive sleep apnea syndrome Medications Medication Instructions Start Date Stop Date Generic Name [facility] Provider ADVAIR HFA 115-21 MCG/ACT AERO 2 PUFFS Q12H FLUTICASONE-SALME TEROL 14213170863 Nima Coleman MD KLOR-CON M20 20 MEQ CR-TABS 1 tab daily POTASSIUM CHLORIDE JESUS CR 60326604717 Nima Coleman MD PAXIL 20 MG TABS 1 TAB DAILY PAROXETINE HCL 07967974476 Nima Coleman MD CILOSTAZOL 100 MG TABS Take 1 tablet by mouth twice a day CILOSTAZOL 04314541692 Nima Coleman MD LANCETS MICRO THIN 33G FOR GLUC TESTING 1-2 TIMES / DAY LANCETS 15092132902 Nima Coleman MD RELION CONFIRM/MICRO TEST STRP FOR GLUC TESTING 1-2 TIMES / DAY GLUCOSE BLOOD 03295647326 Nima SETH CONFIRM GLUCOSE MONITOR w/Device KIT USE FOR CHECKING GLUC 1-2 TIMES / DAY BLOOD GLUCOSE MONITORING SUPPL 50879870847 Nima Coleman MD PAXIL 10 MG TABS 1 TAB DAILY PAROXETINE HCL 20450656502 Nima Coleman MD SIMVASTATIN 40 MG TABS qd SIMVASTATIN 48809941995 Nima Coleman MD METFORMIN HCL 500 MG TABS Take 1 tablet by mouth twice a day with breakfast and dinner METFORMIN HCL 93682122309 Nima Coleman MD VITAMIN D3 125 MCG (5000 UT) TABS 1 TAB DAILY CHOLECALCIFEROL 98551816539 Nima Coleman MD B-12 1000 MCG CAPS Take 1 capsule by mouth daily CYANOCOBALAMIN 39389655380 Nima Coleman MD VITAMIN D3 1.25 MG (03831 UT) CAPS Take 1 capsule by mouth daily CHOLECALCIFEROL 89361214788 Nima Coleman MD RANITIDINE HCL 150 MG ORAL TABLET 1 TAB QAM & 1 QHS RANITIDINE HCL 94867123992 Nima Coleman MD PROTONIX 40 MG PACK 1 TAB DAILY 08/03 PANTOPRAZOLE SODIUM 97156645820 Nima Coleman MD REQUIP 1 MG ORAL TABLET 1 TAB QHS ROPINIROLE HCL 42204949806 Nima Coleman MD VENTOLIN HFA 108 (90 Base) MCG/ACT AERS 2 PUFFS Q4H PRN ALBUTEROL SULFATE 69056380638 Nima Coleman MD PROTONIX 40 MG PACK 1 TAB DAILY PANTOPRAZOLE SODIUM 21605882831 Nima Coleman MD SYMBICORT 80-4.5 MCG/ACT AERO 2 PUFFS BID BUDESONIDE-FORMOT SHARDA FUMARATE 97212969063 Nima Coleman MD LASIX 40 MG TABS bid FUROSEMIDE 37932620687 Nima Coleman MD SYMBICORT 80-4.5 MCG/ACT AERO 2 PUFFS BID 10/02 BUDESONIDE-FORMOT SHARDA FUMARATE 27246217322 Preston Delatorre VENTOLIN HFA 108 (90 Base) MCG/ACT AERS 1-2 puffs qid prn 10/02 ALBUTEROL SULFATE 32940840129 Preston Delatorre REQUIP 1 MG ORAL TABLET 1 po qhs 10/02 ROPINIROLE HCL 45233685040 Preston Delatorre REQUIP 0.5 MG ORAL TABLET 1 TAB 2 HRS BEFORE SLEEP X 14 DAYS; THEN 2 TABS OR #1 1 MG TAB QPM ROPINIROLE HCL 09401360276 Nima Coleman MD SYMBICORT 80-4.5 MCG/ACT AERO 2 PUFFS BID BUDESONIDE-FORMOT SHARDA FUMARATE 43326373970 Nima Coleman MD PROTONIX 40 MG PACK 1 QD PANTOPRAZOLE SODIUM 42217936100 Preston Delatorre PROVENTIL HFA 108 (90 Base) MCG/ACT INHALATION AEROSOL SOLUTION ALBUTEROL SULFATE 70608168213 Nima Coleman MD ASPIRIN LOW DOSE TBEC ASPIRIN TBE 30250301129 Nima Coleman MD K-DONOVAN 20 MEQ PACK 1 TAB QD POTASSIUM CHLORIDE Nima Coleman MD SIMVASTATIN 40 MG TABS qd SIMVASTATIN 27153276571 Nima Coleman MD LASIX 40 MG TABS bid FUROSEMIDE 48885123423 Nima Coleman MD PROVENTIL HFA 108 (90 Base) MCG/ACT INHALATION AEROSOL SOLUTION 1-2 puffs q 4-6 hours prn cough/wheeze. 05/19 ALBUTEROL SULFATE 71361162086 Nithya [place]Air[place]ale CYLINDER PRESS OPERATOR PROTONIX 40 MG PACK 1 po qd 05/19 PANTOPRAZOLE SODIUM 07216665643 Nithya [place] CYLINDER PRESS OPERATOR K-DONOVAN 20 MEQ PACK 1 po qd 05/19 POTASSIUM CHLORIDE 24378219256 Nithya [place] CYLINDER PRESS OPERATOR LASIX 40 MG TABS 1 po bid 05/19 FUROSEMIDE 34323669546 Nithya [place] CYLINDER PRESS OPERATOR SIMVASTATIN 40 MG TABS 1 po qd 05/19 SIMVASTATIN 22080554617 Nithya [place] CYLINDER PRESS OPERATOR Medications Administered No information available. Allergies, Adverse Reactions, Alerts Allergy Name Reaction Description Start Date Severity Statu s Provider PCN Critical Active Eugenie Sco tt RATOPRINTER Results Date Name Value Unit Range Flag [...] in Blood ABS NEUTROPH 4563 CELLS/UL 10*3/uL 0438-0241 N Neutrophils [#/volume] in Blood MPV 8.0 [...] Referral St Physician General Surgery # 1 [facility] Surgery, [address] [place] [address] [address], [place], [address] Referral General Surgery Referral St Physician General Surgery # 1 [facility] General Surgery, [address] [place] [address] [address], [place], [address] Referral Ophthamology Opt ometry Referral [facility] Sight, [facility] for, [address] [place] [address], [address] Referral Podiatry Referra shanika [facility], [address] [place] [address], [address] Pending order Medication Recon ciliation Pending order Lipid Panel Pending order TSH reflex to fr ee T4 Pending order Vitamin D 25 Hyd sky Pending order CMP Pending order HGBA1c Pending order CBC no diff Pending order SNOMED-CT: 62831 3000 Smoking Cessation Counseling Pending order SNOMED-CT: 80521 3134865161 Current Medications Documented Pending order Vitamin D [...] Procedures Code Procedure Name Date Entry Date CPT-31873 Pulse Ox for O2 Saturation; single 27444 [facility]-[id number] Medication Reconciliation SCT-[id number] SNOMED-CT: 181969828 Smoking Cessation Counseling SCT-[id number] SNOMED-CT: 270641876 277851 Current Medications Documented 05595 [facility] # Lipid Panel 3 01081 [facility] # TSH reflex to free T4 90689 [facility] # Vitamin D 25 Hydroxy 2 42411 [facility] # CMP 3 496 [facility] # HGBA1c [facility]# 1759 CBC no diff GEN SX PRE SX General Surgery Refe rral St [facility] Physician General Surgery # 1 [place] [address] [facility] # Lipid Panel 1 31131 [facility] # CMP 1 496 [facility] # HGBA1c 80951 [facility] # Vitamin D 25 Hydroxy 2 83064 [facility] # Lipid Panel 1 77190 [facility] # CMP 1 496 [facility] # HGBA1c 22617 [facility] # Vitamin D 25 Hydroxy 2 [facility] [place] [facility] Podiat[facility] Ref[place] [facility] [place] [facility] GEN SX PRE SX General Surgery Refe rral [facility] Physician General Surgery # 1 [place] GEN SX PRE SX General Surgery Refe rral [facility] Physician General Surgery # 1 [place] [address] [facility] # BMP 2 496 [facility] # HGBA1c OPHTH OPT [facility] Ophthamology Optomet ry Referral [facility] 22832 [facility] # Lipid Panel 4 496 [facility] # HGBA1c 78908 [facility] # BMP 4 927 [facility] # B12 [facility]# 1759 CBC no diff 11618 [facility] # CMP 9 47520 [facility] # TSH reflex to free T4 56322 [facility] # Vitamin D 25 Hydroxy 2 CPT-55118 Venipuncture CPT-66609 B12 (Outside Lab) CPT-01076 Lipid Panel (Outside Lab) 02/07/22 CPT-30845 BMP (Outside Lab) CPT-G0103 Prostate Screening (Outside Lab) CPT-73453 Vitamin D 25 Hydroxy (Outside Lab) 06/26 [...] Co de Dose Zostavax Subcutaneous Solution Reconstituted 56364 UNT/0.65ML ([facility] [address]-98) Zoster 121 Unknown Advance Directives No information available.
--- NOTE | 2025-01-30 20:29 | ED_ITS ---
Discharge Plan Disposition Patient Disposition: Left Against Medical Advice Condition: Fair Prescriptions Prescriptions: No Action methocarbamol 500 mg tablet 500 mg PO Q8H PRN (Reason: pain) Qty: 30 0RF Breztri Aerosphere 160-9-4.8 mcg/actuation HFA aerosol inhaler 2 inh inhalation BID Qty: 10.7 2RF metformin 500 mg tablet 500 mg PO BID Qty: 60 2RF aspirin [Adult Aspirin Regimen] 81 mg tablet,delayed release (DR/EC) 81 mg PO DAILY Qty: 90 3RF rosuvastatin 20 mg tablet 20 mg PO DAILY 90 Days Qty: 90 2RF albuterol sulfate 90 mcg/actuation HFA aerosol inhaler 2 puff inhalation Q4-6H PRN (Reason: shortness of breath or wheezing) Qty: 6.7 1RF (DME) blood-glucose meter Kit See Rx Instructions .Route Qty: 1 0RF Rx Instructions: As directed once daily (DME) lancets [Accu-Chek Softclix Lancets] Misc See Rx Instructions .Route Qty: 100 3RF Rx Instructions: As directed once daily (DME) blood sugar diagnostic Strip See Rx Instructions .Route Qty: 100 3RF Rx Instructions: As directed once daily losartan 25 mg tablet See Rx Instructions .ROUTE .COMPLEX Qty: 90 0RF Dose Instruction: Take 1 tablet by mouth once daily Rx Instructions: Take 1 tablet by mouth once daily dapagliflozin propanediol [Farxiga] 10 mg tablet 10 mg PO DAILY Qty: 90 1RF nystatin 100,000 unit/mL suspension 1 ml PO QID 10 Days Qty: 40 0RF Rx Instructions: swish and swallow acetaminophen [Tylenol 8 Hour] 650 mg tablet extended release 650 mg PO Q8H PRN (Reason: pain) Qty: 20 0RF ibuprofen 600 mg tablet 600 mg PO Q8H PRN (Reason: pain) Qty: 20 0RF permethrin 5 % cream 1 applic topical Q14D Qty: 60 0RF Rx Instructions: apply second treatment 14 days after first treatment if rash persists. Leave on 8-14 hours before washing off. hydrocortisone 1 % cream 1 applic topical BID PRN (Reason: itching) Qty: 28.4 0RF losartan 25 mg tablet 25 mg PO DAILY Qty: 30 0RF Clinical Impressions Clinical Impression: Falls Instructions Patient Instructions: How to Prevent Falls Print Language Print Language: Ecuadorean Discharge ED Provider: Riddhi Santiago General Adult HPI General Chief complaint: PAIN Stated complaint: Chest Pain Time Seen by Provider: 01/30/25 20:29 Mode of Arrival: Wheelchair Source of Information: Patient Description of Symptoms (Recalled from ER Triage Doc. by RN): Pt presents to ED for frequent falls, R side chest pain, L leg pain & a plethora of other complaints. Pt is not a good historian and does not like answering questions regarding his health. Pt is A&O*4 at this time and rates his pain 4/10 and says that is his L leg pain. History of Present Illness HPI narrative: Patient is a 69-year-old gentleman who presents to the emergency department with right sided chest pain after a fall. Patient states that he is not feeling short of breath but does have pain in his right chest wall. Patient states that he did not hit his head, did not lose consciousness. Patient denies any abdominal pain. Patient denies any headache or vision changes. Patient states that his fall was mechanical in nature but states that he has been falling more frequently at home. States that he lives at home with his and she is not able to help him much. Denies any chest pain. Denies any recent infectious symptoms. Related Data Previous Rx's ?Medication ?Instructions ?Recorded nystatin 100,000 unit/mL oral 1 ml PO QID 10 days #40 mL 11/30/23 suspension albuterol sulfate 90 mcg/actuation 2 puff inhalation Q 4-6H PRN 12/05/23 aerosol inhaler shortness of breath or wheez ing #6.7 grams blood sugar diagnostic #100 ea 12/09/23 blood-glucose meter #1 ea 12/09/23 lancets (Accu-Chek Softclix #100 ea 12/09/23 Lancets) losartan 25 mg tablet 25 mg PO DAILY #30 tabs 04/09 acetaminophen 650 mg 650 mg PO Q8H PRN pain #20 t abs 09/10/24 tablet,extended release (Tylenol 8 Hour) ibuprofen 600 mg tablet 600 mg PO Q8H PRN pain #20 t abs 09/10/24 budesonide 160 mcg-glycopyr 9 2 inh inhalation BID #10 .7 grams 09/14/24 mcg-formot 4.8 mcg/actuation HFA inhaler (Breztri Aerosphere) metformin 500 mg tablet 500 mg PO BID #60 tabs 09/14 methocarbamol 500 mg tablet 500 mg PO Q8H PRN pain #30 tabs 09/14/24 hydrocortisone 1 % topical cream 1 applic topical BID PRN itching 09/30/24 #28.4 grams permethrin 5 % topical cream 1 applic topical Q14D 2 d oses #60 09/30/24 grams losartan 25 mg tablet See Rx Instructions .Route 0 10/05/24 .COMPLEX #90 tabs aspirin 81 mg tablet,delayed 81 mg PO DAILY #90 tabs 0 10/06/24 release (Adult Aspirin Regimen) rosuvastatin 20 mg tablet 20 mg PO DAILY 90 days #90 t abs 10/06/24 dapagliflozin propanediol 10 mg 10 mg PO DAILY #90 tab s 12/27/24 tablet (Farxiga) Allergies Allergy/AdvReac Type Severity Reaction Status Date / Time Penicillins (PENICILLINS) Allergy Unknown Rash Verified 10/06/24 14:18 [facility] Disclaimer: The information contained in this section may have been updated after the patient was seen, as this information can be updated by other users. Medical History (Updated 01/30/25 @ 23:27 by Riddhi Santiago DO) Other hyperlipidemia SOB (shortness of breath) Diabetes mellitus Hypertension COPD (chronic obstructive pulmonary disease) Surgical History History of colonoscopy Hx of cholecystectomy History of appendectomy Family History Other Family history of COPD (chronic obstructive pulmonary disease) Social History Smoking Status: Current every day smoker tobacco type: cigarettes packs per day: 1 second hand exposure: No alcohol intake: never substance use type: denies use current occupational status: other Travel in the last 8 weeks?: None Have you lived/traveled outside US in past 30 days?: No Contact w/someone who lives/traveled outside US past 30 days?: No Exposure to someone with infectious disease in past 14 days?: No Do you have a fever (greater than 100.4 F or 38 C)?: No Have you tested positive for COVID-19?: No Exposed to someone with COVID-19 in past 14 days?: No Do you have a sore throat?: No Do you have a cough?: No Do you have any weakness?: No Do you have any diarrhea?: No Are you experiencing any unusual bleeding?: No Do you have any muscle aches/pain?: No Do you have any abdominal pain?: No Are you experiencing loss of taste or smell?: No Other Medical History Have you received the Flu Vaccine for this season: Yes Have you received the Pneumonia Vaccine: Yes ROS Obtained: Yes All systems reviewed & no additional complaints except as documented and Yes Systems reviewed as appropriate & no additional complaints except as documented Physical Exam General General appearance: alert and in no apparent distress Head Head exam: atraumatic, normocephalic and normal inspection Eye Eye exam: Present normal appearance, PERRL and EOMI; Absent scleral icterus ENT ENT exam: Present normal exam and normal external ear exam Neck Neck exam: Present normal inspection, full ROM and other (no midline cervical spine tenderness) Chest Chest inspection: Present normal inspection and symmetric chest wall rise Respiratory Respiratory exam: Present normal lung sounds bilaterally; Absent respiratory distress or wheezes Cardiovascular Cardiovascular exam: Present regular rate, normal rhythm, normal heart sounds and other (chest wall tenderness right side, no bruising) Abdominal Exam Abdominal exam: Present soft and distention; Absent tenderness, guarding or rebound Extremities Exam Extremities exam: Present normal inspection and full ROM Back Exam Back exam: Present normal inspection, full ROM and other (no thoracic or lumbar spine tenderness) Neurological Exam Neurological exam: Present alert and oriented X3 Psychiatric Psychiatric exam: Present normal affect and normal mood Skin Skin exam: Present warm and dry Medical Decision Making Medical Records Screening: Per USPSTF and CDC recommendations, given the prevalence of disease in our region, it is our hospital?s policy to screen for HIV and viral Hepatitis for all patients aged 18 and over and those with ongoing risk factors. Daniel Inquiry Pt receiving controlled substance: No Vital Signs: 01/30/25 19:57 01/30/25 19:58 01/30/25 20:00 Temperature 98.6 F Temperature Source Oral Pulse Rate 97 H Pulse Rate [Left] 91 H Respiratory Rate 20 16 21 Blood Pressure Blood Pressure [Right Arm] 159/97 H Blood Pressure Mean Blood Pressure Mean [Right Arm] 117 02 Sat by Pulse Oximetry 95 97 Oxygen Delivery Method Room Air 01/30/25 20:00 01/30/25 20:15 01/30/25 20:15 Temperature Temperature Source Pulse Rate Pulse Rate [Left] Respiratory Rate 29 H Blood Pressure 179/91 H 158/97 H Blood Pressure [Right Arm] Blood Pressure Mean 120 122 Blood Pressure Mean [Right Arm] 02 Sat by Pulse Oximetry Oxygen Delivery Method 01/30/25 20:30 01/30/25 20:30 01/30/25 21:12 Temperature Temperature Source Pulse Rate 90 98 H Pulse Rate [Left] Respiratory Rate 23 22 Blood Pressure 142/68 H 180/85 H Blood Pressure [Right Arm] Blood Pressure Mean 92 86 Blood Pressure Mean [Right Arm] 02 Sat by Pulse Oximetry 97 97 Oxygen Delivery Method 01/30/25 21:16 01/30/25 22:00 01/30/25 22:01 Temperature Temperature Source Pulse Rate 90 Pulse Rate [Left] Respiratory Rate 20 26 H Blood Pressure 185/101 H 146/76 H Blood Pressure [Right Arm] Blood Pressure Mean 124 103 Blood Pressure Mean [Right Arm] 02 Sat by Pulse Oximetry 97 Oxygen Delivery Method 01/30/25 22:01 01/30/25 23:21 01/30/25 23:21 Temperature Temperature Source Pulse Rate 99 H 96 H Pulse Rate [Left] Respiratory Rate 24 Blood Pressure Blood Pressure [Right Arm] Blood Pressure Mean Blood Pressure Mean [Right Arm] 02 Sat by Pulse Oximetry Oxygen Delivery Method 01/31/25 00:00 Temperature 97.9 F Temperature Source Oral Pulse Rate 101 H Pulse Rate [Left] Respiratory Rate 16 Blood Pressure 140/99 H Blood Pressure [Right Arm] Blood Pressure Mean Blood Pressure Mean [Right Arm] 02 Sat by Pulse Oximetry Oxygen Delivery Method Room Air Lab Data Lab results reviewed: Yes I reviewed the patient's lab results. Lab Results 01/30/25 20:20: WBC 11.9 H, RBC 4.61, Hgb 13.9 L, Hct 39.6 L, MCV 85.9, MCH 30.2, MCHC 35.1, RDW 12.9, Plt Count 231, MPV 9.4, Neut % (Auto) 77.9, Lymph % (Auto) 14.3, Garfield % (Auto) 6.2, Eos % (Auto) 0.7, Baso % (Auto) 0.5, Neut # (Auto) 9.3 H, Lymph # (Auto) 1.7, Garfield # (Auto) 0.7, Eos # (Auto) 0.1, Baso # (Auto) 0.1, Sodium 136, Potassium 4.1, Chloride 102, Carbon Dioxide 25, Anion Gap 13.1, BUN 14, Creatinine 0.70, Estimated Creat Clear 87, Estimated GFR 112, Est GFR ( Amer) 136, Glucose 185 H, Calcium 9.1, Magnesium 1.6, Total Bilirubin 0.9, AST 26, ALT 17, Alkaline Phosphatase 192 H, Troponin I < 0.01, Total Protein 8.2, Albumin 3.5, Globulin 4.7 H, Albumin/Globulin Ratio 0.7 L, Lipase 31 01/30/25 21:20: VBG pH 7.37, VBG pCO2 36.9, VBG pO2 54.6 H, VBG HCO3 21.0 L, VBG Total CO2 22.2 L, VBG O2 Saturation 88.6 H, VBG Base Excess -4.2 L, VBG Lactic Acid 1.5 01/30/25 20:20 01/30/25 20:20 Orders (Tests/Meds): ED MEDICATIONS Discontinued Medications Generic Name Dose Route Start Last Admin Trade Name Freq PRN Reason Stop Dose Admin Acetaminophen 650 mg 01/30/25 23:29 Acetaminophen 325mg Tab PO 03/01/25 23:28 Q4HP PRN Fever or Mild Pain (1-3) Albuterol/Ipratropium 9 ml 01/30/25 20:51 01/30/25 23:21 Ipratropium/Albuterol 3 Ml Neb IH 01/30/25 20:52 9 ml ONCE ONE Administration Iopamidol 80 ml 01/30/25 21:28 01/30/25 21:30 Iopamidol-370 (76%);100ml Bottle IV 01/30/25 21:29 80 ml ONCE ONE Administration Sodium Chloride 40 ml 01/30/25 21:28 01/30/25 21:30 0.9 % Sodium Chloride 50 Ml Vial IV 01/30/25 21:29 40 ml ONCE ONE Administration Sodium Chloride 10 ml 01/30/25 21:28 01/30/25 21:30 Sodium Chloride 0.9% 10ml Syr (Rad Only) IV 03/01/25 21:27 10 ml NEEDED PRN Administration Maintain IV Site ORDERS Category Date Time Status CT angio abdomen pelvis Stat Cat Scan 01/30/25 20:[address] head/brain wo con Stat Cat Scan 01/30/25 20:51 Completed CTA Chest [CT angio chest - dissection] Stat Cat Scan 01/30/25 20:51 Completed CBC w/Auto Diff [Complete Blood Count Auto Diff] Stat Lab 01/30/25 20:20 Completed CMP [Comprehensive Metabolic Panel] Stat Lab 01/30/25 20:20 Completed Lipase Stat Lab 01/30/25 20:20 Completed MAG [Magnesium] Stat Lab 01/30/25 20:20 Completed Trop I [Troponin I] Stat Lab 01/30/25 20:20 Completed VBG [Venous Blood Gas] Stat RT 01/30/25 21:20 Completed Medical Decision Narrative: Patient is a 69-year-old male who presented to the emergency department after a fall with right sided chest wall pain. On arrival, patient was hemodynamically stable with normal vital signs. Differential includes but not limited to: Intrathoracic pathology, intra- abdominal pathology, intracranial pathology, cervical spine pathology, amongst others. Labs were reviewed and interpreted by myself: CBC showed a leukocytosis of 11, hemoglobin was stable. VBG was unremarkable with no significant elevated lactate. CMP was unremarkable. Troponin was less than 0.01. Patient CT imaging was reviewed and include rated by myself including CT head chest and abdomen. They showed no acute pathology. At this time, patient was ambulated in the emergency department and patient had significant difficulties therefore discussed admission for evaluation by PT OT and possible placement if needed patient agreed. Discussed the case with the hospitalist then after further discussion, patient stated that he wanted to discharge home with his sister who could help take care of him. Patient was ultimately signed out AMA as I felt that patient likely needed further evaluation by PT OT. Patient was ultimately discharged AGAINST MEDICAL ADVICE. Critical Care Critical Care Time Critical Care Time: No
--- NOTE | 2025-01-30 20:51 | CT_ITS ---
PROCEDURE INFORMATION: Exam: CTA Chest With Contrast Exam date and time: 01/30/2025 9:33 PM Age: 69 years old Clinical indication: Injury or trauma; Fall; Blunt trauma (contusions or hematomas) TECHNIQUE: Imaging protocol: Computed tomographic angiography of the chest with contrast. Exam focused on the arteries. 3D rendering (Not supervised by radiologist): MIP and/or 3D reconstructed images were created by the technologist. Radiation optimization: All CT scans at this facility use at least one of these dose optimization techniques: automated exposure control; mA and/or kV adjustment per patient size (includes targeted exams where dose is matched to clinical indication); or iterative reconstruction. Contrast material: ISO 370; Contrast volume: 80 ml; Contrast route: INTRAVENOUS (IV); COMPARISON: CT LUNG SCREENING 04/18/2023 10:37 AM FINDINGS: Pulmonary arteries: No pulmonary emboli. Aorta: No aortic aneurysm calcific atherosclerosis. Lungs: No focal consolidation. Multiple pulmonary nodules, largest measuring 5 mm within the right upper lobe. Pleural spaces: No pneumothorax. No pleural effusion. Heart: Mild cardiomegaly. No pericardial effusion. Mild burden of coronary artery calcifications. Lymph nodes: No enlarged lymph nodes. Intraperitoneal space: See same day CT abdomen pelvis for subdiaphragmatic findings. Bones/joints: Multilevel degenerative type changes of the spine. No acute osseous abnormality. Soft tissues: Unremarkable. Other findings: . IMPRESSION: 1. No acute intrathoracic visceral injury. 2. No acute fracture. 3. Multiple pulmonary nodules. As per Fleischner Society guidelines for follow-up and management of multiple pulmonary nodules measuring less than 6 mm: For patients at low risk, no specific followup is recommended. For patients at high risk, consider followup CT in 12 months.
--- NOTE | 2025-01-30 20:51 | CT_ITS ---
PROCEDURE INFORMATION: Exam: CTA Abdomen and Pelvis With Contrast Exam date and time: 01/30/2025 9:33 PM Age: 69 years old Clinical indication: Abdominal pain; Other: Fall with pain TECHNIQUE: Imaging protocol: Computed tomographic angiography of the abdomen and pelvis with contrast. Exam focused on the arteries. 3D rendering (Not supervised by radiologist): MIP and/or 3D reconstructed images were created by the technologist. Radiation optimization: All CT scans at this facility use at least one of these dose optimization techniques: automated exposure control; mA and/or kV adjustment per patient size (includes targeted exams where dose is matched to clinical indication); or iterative reconstruction. Contrast material: ISO 370; Contrast volume: 80 ml; Contrast route: INTRAVENOUS (IV); COMPARISON: CT ABDOMEN PELVIS W CON 03/14/2024 12:26 AM FINDINGS: Limitations: The examination is limited by patient motion. Diaphragm: See same day CT chest for supradiaphragmatic findings. Aorta: No aortic aneurysm. No aortic dissection. Celiac and mesenteric arteries: No occlusion or significant stenosis. Renal arteries: No occlusion or significant stenosis. Right iliac arteries: No occlusion or significant stenosis. Left iliac arteries: No occlusion or significant stenosis. Liver: The liver is enlarged. Gallbladder and biliary ducts: The gallbladder is unremarkable. No biliary ductal dilatation. Pancreas: The pancreas is unremarkable. Spleen: The spleen is unremarkable. Adrenal glands: The adrenal glands are normal. Kidneys and ureters: The kidneys enhance symmetrically without hydronephrosis. The ureters have normal course and caliber without stone. Stomach and bowel: The stomach is normal. The small bowel has normal course and caliber. The large bowel has normal course and caliber with scattered colonic diverticula. No significant pericolonic inflammation. Appendix: No evidence of appendicitis. Intraperitoneal space: No free air. No significant fluid collection. Lymph nodes: No enlarged lymph nodes. Urinary bladder: The bladder is normal without focal wall thickening. Reproductive: Unremarkable as visualized. Bones/joints: Multilevel degenerative type changes of the spine. No acute osseous abnormality. Soft tissues: Unremarkable. IMPRESSION: 1. No acute intra-abdominal/visceral injury. 2. No acute fracture. 3. No large vessel occlusion or severe stenosis.
--- NOTE | 2025-01-30 20:51 | CT_ITS ---
PROCEDURE INFORMATION: Exam: CT Head Without Contrast Exam date and time: 01/30/2025 9:25 PM Age: 69 years old Clinical indication: Injury or trauma; Fall; Blunt trauma (contusions or hematomas) TECHNIQUE: Imaging protocol: Computed tomography of the head without contrast. Radiation optimization: All CT scans at this facility use at least one of these dose optimization techniques: automated exposure control; mA and/or kV adjustment per patient size (includes targeted exams where dose is matched to clinical indication); or iterative reconstruction. COMPARISON: No relevant prior studies available. FINDINGS: Brain: Moderate generalized cerebral atrophy. No intracranial mass, hemorrhage or evidence of acute ischemia. Cerebral ventricles: No ventriculomegaly. Paranasal sinuses: Visualized sinuses are unremarkable. No fluid levels. Mastoid air cells: Visualized mastoid air cells are well aerated. Bones: Unremarkable. No acute fracture. Soft tissues: Unremarkable. IMPRESSION: No acute intracranial abnormality
[2025-01-30 20:58] LABS: Hematocrit 39.6 % (42.0-52.0); Hemoglobin 13.9 g/dL (14.1-18.0); Immature Granulocytes % 0.4 %; Mean Corpuscular HGB Conc 35.1 g/dL (31.8-35.4); Mean Corpuscular Hemoglobin 30.2 pg (27.0-31.2); Mean Corpuscular Volume 85.9 fl (80-94); Nucleated Red Blood Cells % 0 %; Platelet Count 231 K/mm3 (142-424); Red Blood Count 4.61 M/mm3 (4.60-6.20); Red Cell Distribution Width-SD 39.9 fL; White Blood Count 11.9 K/mm3 (4.8-10.8)
[2025-01-30 21:12] LABS: Alanine Aminotransferase 17 U/L (12-78); Albumin Level 3.5 g/dl (3.5-5.0); Albumin/Globulin Ratio 0.7 (1.1-1.8); Alkaline Phosphatase 192 U/L (38-126); Anion Gap 13.1 mEq/L (5-15); Aspartate Amino Transferase 26 U/L (17-59); Bilirubin,Total 0.9 mg/dl (0.2-1.3); Blood Urea Nitrogen 14 mg/dl (9-20); Calcium 9.1 mg/dl (8.4-10.2); Carbon Dioxide 25 mmol/L (22.0-30.0); Chloride 102 mmol/L (98-107); Creatinine Clearance Estimated 87 mL/min (50-200); Creatinine,Serum 0.70 mg/dl (0.66-1.25); Estimated Glomerular Filt Rate 112 ml/min (>60); GFR (African American) 136 ML/MIN (>60); Globulin 4.7 g/dL (1.3-3.2); Glucose 185 mg/dl (74-100); Lipase 31 U/L (23-300); Magnesium 1.6 mg/dl (1.6-2.3); Potassium 4.1 mmoL/L (3.5-5.1); Sodium 136 mmol/L (136-145); Total Protein,Serum 8.2 g/dl (6.3-8.2)
[2025-01-30 21:23] LABS: Troponin I < 0.01 ng/ml (0.00-0.034)
[2025-01-30 21:27] LABS: Lactate Venous 1.5 mmol/L (0.4-2.0); VBG HCO3 21.0 mmol/L (23-30); VBG PCO2 36.9 mmol/L (35-51); VBG PH 7.37 mmol/L (7.31-7.41); VBG PO2 54.6 mmol/L (28-40)
--- NOTE | 2025-01-30 21:27 | PC.NURSE ---
Pt abrasion on right forearm and shoulder cleansed. Pt hands and feet scrubbed as well.
[2025-01-30] MEDS: 0.9 % SODIUM CHLORIDE 50 ML VIAL 40 ML IV (21:30)
[2025-01-30] MEDS: IOPAMIDOL-370 (76%);100ML BOTTLE 80 ML IV (21:30)
[2025-01-30] MEDS: SODIUM CHLORIDE 0.9% 10ML SYR (RAD ONLY) 10 ML IV (21:30)
[2025-01-30] MEDS: IPRATROPIUM/ALBUTEROL 3 ML NEB 9 ML IH (23:21)
--- NOTE | 2025-01-30 23:39 | PC.NURSE ---
Atttempted to call report to [facility]. Advised to call back in 5 min.
--- NOTE | 2025-01-30 23:50 | PC.NURSE ---
Pt uncomfortable in bed, placed in wheelchair for comfort. Discussed him getting admitted, pt states he doesn't want to stay, he will go home with his sister. Dr Santiago aware
--- NOTE | 2025-01-30 23:57 | PC.NURSE ---
Pt left AMA after talking with this RN and Dr. Santiago. Pt's sister said she would take him home with her tonight.
[2025-01-31] VITALS: BP 140/99; PULSE 101; RESP 16; TEMP 36.6; O2SAT 96
--- NOTE | 2025-01-31 07:59 | SW/DCPLANNER ---
I received a consult for this patient regarding the possible need of placement. Patient did sign out AMA prior to CM being able to speak w/ patient.
--- NOTE | 2025-01-31 08:56 | EXP.EVENT.NO ---
Admission request per ED provider, d/t frequent falls, needing placement with rehab. Pt. did not transfer to the floor. It was noted patient left AMA while in the ED.
== END 2025-01-31 00:02 | disposition left against medical advice (07) ==
LOC: ER 23:27 → 2ND 23:52
PROVIDERS: Emergency Provider Student in an Organized Health Care Education/Training Program; Visit Provider Family Medicine
DX: R07.89 Other chest pain (principal); R29.6 Repeated falls; F17.210 Nicotine dependence, cigarettes, uncomplicated; J44.9 Chronic obstructive pulmonary disease, unspecified; I10 Essential (primary) hypertension; E11.9 Type 2 diabetes mellitus without complications; W19.XXXA Unspecified fall, initial encounter; Z79.84 Long term (current) use of oral hypoglycemic drugs
CPT/HCPCS: 70450; 71275; 74174; 80053; 82803; 83690; 83735; 84484; 85025; 93005; 99285; G0378; Q9967